=== PATIENT | female | born 1965 | race Caucasian/White ===

== ENCOUNTER → 2016-04-07 | Outpatient (CLI) | payer OTHER ==
[~2016-04-07] MED LIST: /ADVA50050; /ATOR40TA; /ATOR40TA OR; /ESCI20TA; /ESOM40CA; /ESOM40CA OR; /MOXI40TA; ABIL10TA; ABIL5TAB OR; AMBI10TA; ASTLIN; ATARAX; CETI10TA; CLON1TAB; CRES20TA OR; ERYTHROMYCI1; FLEXERIL; FLEXERIL OR; FLEXERIL PO; HYDR50TA8 OR; HYDROXYZINE PAMOATE; IBUP600T OR; IBUP800T OR; KLON1TAB OR; LAMI25TA OR; LAVAZA PO; LIPI20TA; LOPERAMIDE; LYRI75CA OR; METO5TAB2; METO5TAB2 OR; MIRALEX; MIRALEX PO; MUCINEX; PATA0.2S OU; PREG50CA; QUET20XRTB; QUET30TA; SERO200T; SERO200T OR; SERT100T; SERT50TA2; SING10TA31; SING10TA31 OR; SYMB80AE IN; TOPI100T; TOPI50TA; TRAZ100T; TRAZ50TA; TRAZ50TA OR; VALT500T; VENTAER; VENTAER IN; VIST25CA; VITAMIN D50000 UNT; VITAMIN D50000 UNT OR; ZOLO100T; ZOLO50TA; ZOVI5OIN; seroquel
--- NOTE | 2016-04-07 10:40 | REP ---
Left groin ultrasound: History: Left groin lump, check for abscess. Findings: Scanning is performed through the soft tissues of the left groin in the region where the patient indicates the lump. There is a 0.5 x 0.2 x 0.4 cm subdermal slightly hypoechoic area which may represent a small sebaceous cyst. No surrounding inflammation seen by ultrasound. Abscess considered unlikely. No other abnormal fluid collection is seen. Signed by Dillon Dutton MD 04/07/2016 03:02 P
== END ==
LOC: M RAD 08:46
PROVIDERS: ATTEND Nurse Practitioner
DX: L02.214 Cutaneous abscess of groin (principal)

== ENCOUNTER → 2016-04-30 | Outpatient (CLI) | payer OTHER ==
[2016-04-30 10:06] LABS: BASO % 0.8 % (0.0-1.0); EOS # 0.2 K/mm3 (0.0-0.50); EOS % 3.1 % (0.0-3.0); LARGE UNSTAINED CELL # 0.2 K/mm3 (0.0-0.4); LARGE UNSTAINED CELL % 2.6 % (0.0-4.0); LYMPH # 2.5 K/mm3 (1.5-4.5); LYMPH % 38.6 % (24.0-44.0); MEAN CORPUSCULAR HEMOGLOBIN 28.5 pg (27.0-33.0); MEAN CORPUSCULAR HGB CONC 32.9 g/dl (32.0-36.5); MEAN CORPUSCULAR VOLUME 86.7 fl (80.0-96.0); MONO # 0.3 K/mm3 (0.0-0.8); MONO % 4.9 % (0.0-5.0); NEUTROPHILS # 3.3 K/mm3 (1.8-7.7); PLATELET COUNT, AUTOMATED 236 k/mm3 (150-450); WHITE BLOOD COUNT 6.6 K/mm3 (4.0-10.0)
[2016-04-30 10:30] LABS: ALBUMIN 3.6 GM/DL (3.2-5.2); ALBUMIN/GLOBULIN RATIO 1.29 (1.00-1.93); ALKALINE PHOSPHATASE 84 U/L (45-117); ALT/SGPT 22 U/L (12-78); ANION GAP 6 MEQ/L (8-16); AST/SGOT 17 U/L (15-37); BILIRUBIN,TOTAL 0.4 MG/DL (0.2-1.0); BLOOD UREA NITROGEN 15 MG/DL (7-18); CALCIUM LEVEL 8.9 MG/DL (8.5-10.1); CARBON DIOXIDE LEVEL 28 MEQ/L (21-32); CHLORIDE LEVEL 109 MEQ/L (98-107); CREATININE FOR GFR 0.72 MG/DL (0.55-1.02); GLOMERULAR FILTRATION RATE > 60.0 (>51); GLUCOSE, FASTING 92 MG/DL (70-105); POTASSIUM SERUM 4.2 MEQ/L (3.5-5.1); SODIUM LEVEL 143 MEQ/L (136-145); TOTAL PROTEIN 6.4 GM/DL (6.4-8.2)
[2016-04-30 10:41] LABS: ERYTHROCYTE SEDIMENTATION RATE 8 mm/hr (0-30)
== END ==
LOC: M LAB 09:33
PROVIDERS: ATTEND Nurse Practitioner
DX: T81.4XXD Infection following a procedure, subsequent encounter (principal)

== ENCOUNTER → 2016-05-18 | Outpatient (CLI) | payer OTHER ==
[2016-05-18 10:09] LABS: BASO % 0.6 % (0.0-1.0); EOS # 0.1 K/mm3 (0.0-0.50); EOS % 2.1 % (0.0-3.0); LARGE UNSTAINED CELL # 0.1 K/mm3 (0.0-0.4); LYMPH % 41.6 % (24.0-44.0); MEAN CORPUSCULAR HEMOGLOBIN 28.7 pg (27.0-33.0); MEAN CORPUSCULAR HGB CONC 33.1 g/dl (32.0-36.5); MEAN CORPUSCULAR VOLUME 86.9 fl (80.0-96.0); MONO # 0.3 K/mm3 (0.0-0.8); MONO % 4.1 % (0.0-5.0); NEUTROPHILS # 3.4 K/mm3 (1.8-7.7); NEUTROPHILS % 49.7 % (36.0-66.0); PLATELET COUNT, AUTOMATED 250 k/mm3 (150-450); RED CELL DISTRIBUTION WIDTH 15.8 % (11.5-14.5); WHITE BLOOD COUNT 6.9 K/mm3 (4.0-10.0)
[2016-05-18 10:27] LABS: ALBUMIN 3.6 GM/DL (3.2-5.2); ALBUMIN/GLOBULIN RATIO 1.24 (1.00-1.93); ALKALINE PHOSPHATASE 79 U/L (45-117); ALT/SGPT 24 U/L (12-78); ANION GAP 8 MEQ/L (8-16); AST/SGOT 13 U/L (15-37); BILIRUBIN,TOTAL 0.4 MG/DL (0.2-1.0); BLOOD UREA NITROGEN 17 MG/DL (7-18); CALCIUM LEVEL 9.3 MG/DL (8.5-10.1); CARBON DIOXIDE LEVEL 27 MEQ/L (21-32); CHLORIDE LEVEL 107 MEQ/L (98-107); CREATININE FOR GFR 0.83 MG/DL (0.55-1.02); GLOMERULAR FILTRATION RATE > 60.0 (>51); GLUCOSE, FASTING 94 MG/DL (70-105); POTASSIUM SERUM 3.8 MEQ/L (3.5-5.1); SODIUM LEVEL 142 MEQ/L (136-145); TOTAL PROTEIN 6.5 GM/DL (6.4-8.2)
--- NOTE | 2016-05-18 22:18 | ECGEPIP ---
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
== END ==
LOC: M LAB 09:27
PROVIDERS: ATTEND Podiatrist
DX: Z01.818 Encounter for other preprocedural examination (principal); M72.2 Plantar fascial fibromatosis

== ENCOUNTER → 2016-06-02 | Outpatient (CLI) | payer OTHER ==
[~2016-06-02] MED LIST changes: +ASPI81TA85 PO; +BREO1INH3 INH; +CALCTAB75 PO; +CELE20TA PO; +DOXE100CA PO; +DOXY-278 PO; +ESOM1CAP5 PO; +LIPI20TA PO; +METF500T PO; +MIRA3350 PO; +NICO21DI5 TD; +VALI10TA PO; +VANC250C2 PO
[2016-06-02 09:54] LABS: BASO % 0.7 % (0.0-1.0); EOS # 0.2 K/mm3 (0.0-0.50); EOS % 2.4 % (0.0-3.0); LARGE UNSTAINED CELL # 0.1 K/mm3 (0.0-0.4); LYMPH # 2.9 K/mm3 (1.5-4.5); LYMPH % 41.3 % (24.0-44.0); MEAN CORPUSCULAR HEMOGLOBIN 28.8 pg (27.0-33.0); MEAN CORPUSCULAR HGB CONC 32.6 g/dl (32.0-36.5); MEAN CORPUSCULAR VOLUME 88.5 fl (80.0-96.0); MONO # 0.3 K/mm3 (0.0-0.8); MONO % 4.9 % (0.0-5.0); NEUTROPHILS # 3.3 K/mm3 (1.8-7.7); NEUTROPHILS % 48.8 % (36.0-66.0); PLATELET COUNT, AUTOMATED 240 k/mm3 (150-450); RED CELL DISTRIBUTION WIDTH 15.9 % (11.5-14.5); WHITE BLOOD COUNT 6.7 K/mm3 (4.0-10.0)
[2016-06-02 10:26] LABS: ERYTHROCYTE SEDIMENTATION RATE 9 mm/hr (0-30)
[2016-06-02 10:29] LABS: ALBUMIN 4.1 GM/DL (3.2-5.2); ALBUMIN/GLOBULIN RATIO 1.58 (1.00-1.93); ALKALINE PHOSPHATASE 78 U/L (45-117); ALT/SGPT 23 U/L (12-78); ANION GAP 7 MEQ/L (8-16); AST/SGOT 18 U/L (15-37); BILIRUBIN,TOTAL 0.4 MG/DL (0.2-1.0); BLOOD UREA NITROGEN 9 MG/DL (7-18); CALCIUM LEVEL 9.4 MG/DL (8.5-10.1); CARBON DIOXIDE LEVEL 29 MEQ/L (21-32); CHLORIDE LEVEL 104 MEQ/L (98-107); CREATININE FOR GFR 0.76 MG/DL (0.55-1.02); GLOMERULAR FILTRATION RATE > 60.0 (>51); GLUCOSE, FASTING 102 MG/DL (70-105); POTASSIUM SERUM 3.7 MEQ/L (3.5-5.1); SODIUM LEVEL 140 MEQ/L (136-145); TOTAL PROTEIN 6.7 GM/DL (6.4-8.2)
== END ==
LOC: M LAB 09:16
PROVIDERS: ATTEND Nurse Practitioner
DX: T81.4XXD Infection following a procedure, subsequent encounter (principal)

== ENCOUNTER → 2016-06-03 | Day surgery (SDC) | payer OTHER ==
[~2016-06-03] VITALS: Ht 157.5 cm; Wt 84.4 kg
[~2016-06-03] MED LIST changes: +BACITRACIN PWD 50,000 UNITS VIAL As Ordered ONE; +BUPIVACAINE HCL 0.5% 10 ML VIAL As Ordered ONE; +BUPIVACAINE HCL 0.5% 30 ML VIAL As Ordered ONE; +LIDOCAINE 2% INJ 100 MG/5 ML SDV (FOR ANES.) As Ordered ONE; +LIDOCAINE 2% MDV 20 ML VIAL As Ordered ONE; +LR 1,000 ML IV SCH; +METOCLOPRAMIDE INJ 10MG/2ML VIAL (J2765) IV PRN; +MIDAZOLAM INJ 2 MG/2 ML VIAL (J2250) As Ordered ONE; +NEOSPORIN GU IRRIG 20 ML VIAL As Ordered ONE; +ONDANSETRON 4MG/2ML VIAL (J2405) As Ordered ONE; +ONDANSETRON 4MG/2ML VIAL (J2405) IV PRN; +PERCOCET 5MG/325MG TAB PO PRN; +PROPOFOL 200 MG/20 ML VIAL As Ordered ONE; +VANCOMYCIN HCL 1,000 MG, VIAL MATE ADAPTER 1 EACH in D5W 250 ML IV ONE; +dexameTHASONE 4 MG/ML 1ML VIAL (J1100) As Ordered ONE; +fentaNYL 100 MCG/2 ML INJECTION (J3010) As Ordered ONE
[2016-06-03 10:15] VITALS: BP 136/85
--- NOTE | 2016-06-03 10:45 | RO ---
DATE OF PROCEDURE: 06/03/2016 PREPROCEDURE DIAGNOSIS: Plantar fasciitis right foot. POSTPROCEDURE DIAGNOSIS: Plantar fasciitis right foot. PROCEDURE: Endoscopic plantar fasciotomy right foot. SURGEON: Nash Martinez DPM PLAYGROUND AIDE: None. ANESTHESIA: Local, monitored anesthesia care (MAC). IRRIGATION: Dilute bacitracin, neomycin and polymyxin B solution. HEMOSTASIS: Ankle pneumatic tourniquet at 225 mmHg for 18 minutes on the right ankle. DESCRIPTION OF PROCEDURE: On 06/03/2016, this 50-year-old white female was taken from her hospital room to the operating room and placed on the operating room table in a supine position. Following the induction of IV sedation, local and regional anesthesia, the right lower extremity was prepped and draped in the usual aseptic manner. Attention was directed to the patient's right foot where the following procedure was performed. ENDOSCOPIC PLANTAR FASCIOTOMY RIGHT FOOT: Attention was directed to the medial surface of the patient's right foot where a 5 mm incision was placed over the medial tuberosity of the calcaneus superior to the weight bearing surface. Utilizing dissection scissors, dissection was carried down to the level of the plantar fascia. Utilizing a tissue distender, a channel was created inferior to the plantar fascia. Utilizing an [employer] Centerline endoscopic blade with endoscope, the endoscope was introduced into the wound. Direct visualization revealed the plantar fascia. Approximately 3/4 of the plantar fascia was identified and then transected under direct visualization. Intraoperative images confirmed plantar fasciotomy with visualization of the first muscle layer. The endoscope was then removed. The wound was flushed with copious amounts of dilute bacitracin, neomycin and polymyxin B solution. The deep structures were coapted and maintained utilizing #4-0 Vicryl in a simple interrupted type fashion. The skin incision was coapted and maintained utilizing #4-0 Prolene in a horizontal mattress type fashion and 4 mg of dexamethasone sodium phosphate was instilled proximal to the surgical site. Attention was directed towards bandaging where a sterile compressive bandage was applied consisting of Adaptic, 4x4s, 4x4 splints, Kerlix and Coban. The ankle pneumatic tourniquet was deflated and instantaneous capillary filling time was noted in digits 1-5 of the patients right foot. The patient having apparently tolerated the surgical procedure well was taken from the operating room (OR) to the recovery room with vital signs stable and the patient afebrile for further monitoring by the anesthesia department. All surgical specimens removed during the operative procedure were sent to pathology for gross and microscopic examination. Postoperative instructions will be given upon discharge.
== END ==
LOC: M SDC 07:20
PROVIDERS: ATTEND Podiatrist
DX: M72.2 Plantar fascial fibromatosis (principal); M79.671 Pain in right foot; S86.011A Strain of right Achilles tendon, initial encounter; X58.XXXA Exposure to other specified factors, initial encounter; Y93.89 Activity, other specified; E11.9 Type 2 diabetes mellitus without complications; G90.50 Complex regional pain syndrome I, unspecified; E78.5 Hyperlipidemia, unspecified; K21.9 Gastro-esophageal reflux disease without esophagitis; F42.9 Obsessive-compulsive disorder, unspecified; J30.2 Other seasonal allergic rhinitis; J01.90 Acute sinusitis, unspecified; F17.210 Nicotine dependence, cigarettes, uncomplicated; M19.90 Unspecified osteoarthritis, unspecified site; Z88.1 Allergy status to other antibiotic agents; Z88.8 Allergy status to other drugs, medicaments and biological substances; Z88.5 Allergy status to narcotic agent; Z88.0 Allergy status to penicillin; Z88.4 Allergy status to anesthetic agent; Z79.899 Other long term (current) drug therapy; Z79.51 Long term (current) use of inhaled steroids; Z79.84 Long term (current) use of oral hypoglycemic drugs; Z79.2 Long term (current) use of antibiotics; Z86.14 Personal history of Methicillin resistant Staphylococcus aureus infection
CPT/HCPCS: 29893; J1100; J2250; J2405; J3010; J3370

== ENCOUNTER → 2016-06-29 | Outpatient (CLI) | payer OTHER ==
[~2016-06-29] MED LIST changes: -BACITRACIN PWD 50,000 UNITS VIAL As Ordered ONE; -BUPIVACAINE HCL 0.5% 10 ML VIAL As Ordered ONE; -BUPIVACAINE HCL 0.5% 30 ML VIAL As Ordered ONE; -LIDOCAINE 2% INJ 100 MG/5 ML SDV (FOR ANES.) As Ordered ONE; -LIDOCAINE 2% MDV 20 ML VIAL As Ordered ONE; -LR 1,000 ML IV SCH; -METOCLOPRAMIDE INJ 10MG/2ML VIAL (J2765) IV PRN; -MIDAZOLAM INJ 2 MG/2 ML VIAL (J2250) As Ordered ONE; -NEOSPORIN GU IRRIG 20 ML VIAL As Ordered ONE; -ONDANSETRON 4MG/2ML VIAL (J2405) As Ordered ONE; -ONDANSETRON 4MG/2ML VIAL (J2405) IV PRN; -PERCOCET 5MG/325MG TAB PO PRN; -PROPOFOL 200 MG/20 ML VIAL As Ordered ONE; -VANCOMYCIN HCL 1,000 MG, VIAL MATE ADAPTER 1 EACH in D5W 250 ML IV ONE; -dexameTHASONE 4 MG/ML 1ML VIAL (J1100) As Ordered ONE; -fentaNYL 100 MCG/2 ML INJECTION (J3010) As Ordered ONE
[2016-06-29 10:24] LABS: BASO % 0.4 % (0.0-1.0); EOS # 0.2 K/mm3 (0.0-0.50); EOS % 3.6 % (0.0-3.0); LARGE UNSTAINED CELL # 0.1 K/mm3 (0.0-0.4); LARGE UNSTAINED CELL % 2.1 % (0.0-4.0); LYMPH # 2.7 K/mm3 (1.5-4.5); LYMPH % 45.1 % (24.0-44.0); MEAN CORPUSCULAR HGB CONC 32.7 g/dl (32.0-36.5); MEAN CORPUSCULAR VOLUME 91.8 fl (80.0-96.0); MONO # 0.3 K/mm3 (0.0-0.8); MONO % 4.2 % (0.0-5.0); NEUTROPHILS # 2.6 K/mm3 (1.8-7.7); NEUTROPHILS % 44.6 % (36.0-66.0); PLATELET COUNT, AUTOMATED 240 k/mm3 (150-450); RED CELL DISTRIBUTION WIDTH 15.7 % (11.5-14.5); WHITE BLOOD COUNT 5.9 K/mm3 (4.0-10.0)
[2016-06-29 10:50] LABS: ALBUMIN 3.3 GM/DL (3.2-5.2); ALBUMIN/GLOBULIN RATIO 1.18 (1.00-1.93); ALKALINE PHOSPHATASE 66 U/L (45-117); ALT/SGPT 20 U/L (12-78); ANION GAP 6 MEQ/L (8-16); AST/SGOT 17 U/L (15-37); BILIRUBIN,TOTAL 0.4 MG/DL (0.2-1.0); BLOOD UREA NITROGEN 14 MG/DL (7-18); CALCIUM LEVEL 8.7 MG/DL (8.5-10.1); CARBON DIOXIDE LEVEL 29 MEQ/L (21-32); CHLORIDE LEVEL 109 MEQ/L (98-107); CREATININE FOR GFR 0.67 MG/DL (0.55-1.02); GLOMERULAR FILTRATION RATE > 60.0 (>51); GLUCOSE, FASTING 87 MG/DL (70-105); POTASSIUM SERUM 4.1 MEQ/L (3.5-5.1); SODIUM LEVEL 144 MEQ/L (136-145); TOTAL PROTEIN 6.1 GM/DL (6.4-8.2)
[2016-06-29 11:02] LABS: ERYTHROCYTE SEDIMENTATION RATE 9 mm/hr (0-30)
== END ==
LOC: M LAB 09:28
PROVIDERS: ATTEND Nurse Practitioner
DX: T81.4XXD Infection following a procedure, subsequent encounter (principal); B99.9 Unspecified infectious disease; Y99.8 Other external cause status; Y93.9 Activity, unspecified; Y92.89 Other specified places as the place of occurrence of the external cause

== ENCOUNTER → 2016-08-04 | Outpatient (CLI) | payer OTHER ==
[2016-08-04 09:50] LABS: BASO % 0.8 % (0.0-1.0); EOS # 0.2 K/mm3 (0.0-0.50); LARGE UNSTAINED CELL # 0.1 K/mm3 (0.0-0.4); LARGE UNSTAINED CELL % 2.1 % (0.0-4.0); LYMPH # 2.3 K/mm3 (1.5-4.5); LYMPH % 42.4 % (24.0-44.0); MEAN CORPUSCULAR HEMOGLOBIN 29.7 pg (27.0-33.0); MEAN CORPUSCULAR HGB CONC 32.6 g/dl (32.0-36.5); MEAN CORPUSCULAR VOLUME 91.1 fl (80.0-96.0); MONO # 0.3 K/mm3 (0.0-0.8); MONO % 5.6 % (0.0-5.0); NEUTROPHILS # 2.4 K/mm3 (1.8-7.7); NEUTROPHILS % 45.1 % (36.0-66.0); PLATELET COUNT, AUTOMATED 244 k/mm3 (150-450); RED CELL DISTRIBUTION WIDTH 15.3 % (11.5-14.5); WHITE BLOOD COUNT 5.3 K/mm3 (4.0-10.0)
[2016-08-04 10:15] LABS: ALBUMIN 3.2 GM/DL (3.2-5.2); ALBUMIN/GLOBULIN RATIO 1.14 (1.00-1.93); ALKALINE PHOSPHATASE 76 U/L (45-117); ALT/SGPT 28 U/L (12-78); ANION GAP 5 MEQ/L (8-16); AST/SGOT 16 U/L (15-37); BILIRUBIN,TOTAL 0.4 MG/DL (0.2-1.0); BLOOD UREA NITROGEN 14 MG/DL (7-18); CALCIUM LEVEL 8.4 MG/DL (8.5-10.1); CARBON DIOXIDE LEVEL 30 MEQ/L (21-32); CHLORIDE LEVEL 108 MEQ/L (98-107); CREATININE FOR GFR 0.73 MG/DL (0.55-1.02); GLOMERULAR FILTRATION RATE > 60.0 (>51); GLUCOSE, FASTING 82 MG/DL (70-105); POTASSIUM SERUM 4.7 MEQ/L (3.5-5.1); SODIUM LEVEL 143 MEQ/L (136-145)
[2016-08-04 10:16] LABS: ERYTHROCYTE SEDIMENTATION RATE 8 mm/hr (0-30)
== END ==
LOC: M LAB 09:16
PROVIDERS: ATTEND Nurse Practitioner
DX: T81.4XXD Infection following a procedure, subsequent encounter (principal)

== ENCOUNTER 2016-08-25 19:54 | Emergency (ER) | payer OTHER ==
[~2016-08-25] VITALS: Ht 152.4 cm; Wt 80.6 kg
[~2016-08-25 19:54] MED LIST changes: +ATOR1TAB21 PO; +CALC600T57 PO; +CETI10CH PO; +CETI1SYP16 PO; +CETI5SOL2 PO; +CITA20TA4 PO; +DIAZ10TA2 PO; +DOXE150C7 PO; -METF500T PO; +METF500T13 PO; +OMEP40CA2 PO; +RALO1TAB PO; +TEMA15CA2 PO; +TEMA7.5C PO; +ULTR50TA8 PO
[2016-08-25 19:55] VITALS: BP 137/86
[2016-08-25] MEDS ORDERED: FLUC150T PO (20:11)
[2016-08-25] MEDS ORDERED: SILV40CR TOP (20:11)
[2016-08-25] MEDS ORDERED: VALA500T2 PO (20:11)
[2016-08-25] MEDS ORDERED: BENA25TA10 PO (21:30)
[2016-08-25] MEDS ORDERED: predniSONE 20 MG TAB PO ONE (21:30)
[2016-08-25] MEDS ORDERED: PRED10TA2 PO (21:30)
[2016-08-25] MEDS ORDERED: diphenhydrAMINE 25 MG CAP PO ONE (21:30)
== END 2016-08-25 21:39 | disposition home or self-care (01) ==
LOC: M ED 19:54 → MERGE 19:54 → M ED 21:39
DX: L23.9 Allergic contact dermatitis, unspecified cause (principal); J45.909 Unspecified asthma, uncomplicated; E11.9 Type 2 diabetes mellitus without complications; F43.10 Post-traumatic stress disorder, unspecified; E78.9 Disorder of lipoprotein metabolism, unspecified; F17.210 Nicotine dependence, cigarettes, uncomplicated; Z79.899 Other long term (current) drug therapy; Z79.2 Long term (current) use of antibiotics; Z79.84 Long term (current) use of oral hypoglycemic drugs; Z79.82 Long term (current) use of aspirin; Z88.8 Allergy status to other drugs, medicaments and biological substances; Z88.1 Allergy status to other antibiotic agents; Z88.0 Allergy status to penicillin; Z88.4 Allergy status to anesthetic agent

== ENCOUNTER → 2016-09-15 | Outpatient (CLI) | payer OTHER ==
[~2016-09-15] MED LIST changes: +AMMO12LO; +BENA25TA10 PO; +FLUC150T PO; +IBUP-1022 PO; +PRED10TA2 PO; +SILV40CR TOP; +SYST1SOL OU; +VALA500T2 PO
[2016-09-15 12:44] LABS: BASO % 0.7 % (0.0-1.0); EOS # 0.1 K/mm3 (0.0-0.50); LARGE UNSTAINED CELL # 0.1 K/mm3 (0.0-0.4); LARGE UNSTAINED CELL % 1.8 % (0.0-4.0); LYMPH # 1.8 K/mm3 (1.5-4.5); LYMPH % 35.4 % (24.0-44.0); MEAN CORPUSCULAR HEMOGLOBIN 29.8 pg (27.0-33.0); MEAN CORPUSCULAR VOLUME 90.5 fl (80.0-96.0); MONO # 0.2 K/mm3 (0.0-0.8); MONO % 4.1 % (0.0-5.0); NEUTROPHILS # 2.7 K/mm3 (1.8-7.7); NEUTROPHILS % 56.1 % (36.0-66.0); PLATELET COUNT, AUTOMATED 233 k/mm3 (150-450); RED CELL DISTRIBUTION WIDTH 14.9 % (11.5-14.5); WHITE BLOOD COUNT 4.7 K/mm3 (4.0-10.0)
[2016-09-15 13:09] LABS: ALBUMIN 3.4 GM/DL (3.2-5.2); ALBUMIN/GLOBULIN RATIO 1.26 (1.00-1.93); ALKALINE PHOSPHATASE 59 U/L (45-117); ALT/SGPT 25 U/L (12-78); ANION GAP 4 MEQ/L (8-16); AST/SGOT 15 U/L (15-37); BILIRUBIN,TOTAL 0.4 MG/DL (0.2-1.0); BLOOD UREA NITROGEN 11 MG/DL (7-18); CALCIUM LEVEL 8.7 MG/DL (8.5-10.1); CARBON DIOXIDE LEVEL 29 MEQ/L (21-32); CHLORIDE LEVEL 109 MEQ/L (98-107); CREATININE FOR GFR 0.69 MG/DL (0.55-1.02); GLOMERULAR FILTRATION RATE > 60.0 (>51); GLUCOSE, FASTING 86 MG/DL (70-105); POTASSIUM SERUM 4.7 MEQ/L (3.5-5.1); SODIUM LEVEL 142 MEQ/L (136-145); TOTAL PROTEIN 6.1 GM/DL (6.4-8.2)
[2016-09-15 13:10] LABS: ERYTHROCYTE SEDIMENTATION RATE 14 mm/hr (0-30)
== END ==
LOC: MERGE 11:32 → M LAB 11:32
PROVIDERS: ATTEND Nurse Practitioner
DX: T81.4XXD Infection following a procedure, subsequent encounter (principal)

== ENCOUNTER → 2016-09-15 | Outpatient (CLI) | payer OTHER ==
[2016-09-15 12:42] LABS: BASO % 0.5 % (0.0-1.0); EOS # 0.1 K/mm3 (0.0-0.50); EOS % 1.8 % (0.0-3.0); LYMPH # 1.9 K/mm3 (1.5-4.5); LYMPH % 36.9 % (24.0-44.0); MEAN CORPUSCULAR HEMOGLOBIN 30.2 pg (27.0-33.0); MEAN CORPUSCULAR HGB CONC 33.4 g/dl (32.0-36.5); MEAN CORPUSCULAR VOLUME 90.6 fl (80.0-96.0); MONO # 0.2 K/mm3 (0.0-0.8); MONO % 4.3 % (0.0-5.0); NEUTROPHILS # 2.7 K/mm3 (1.8-7.7); NEUTROPHILS % 54.6 % (36.0-66.0); WHITE BLOOD COUNT 4.9 K/mm3 (4.0-10.0)
[2016-09-15 13:16] LABS: ALBUMIN 3.4 GM/DL (3.2-5.2); ALBUMIN/GLOBULIN RATIO 1.26 (1.00-1.93); ALKALINE PHOSPHATASE 63 U/L (45-117); ALT/SGPT 24 U/L (12-78); ANION GAP 6 MEQ/L (8-16); AST/SGOT 16 U/L (15-37); BILIRUBIN,TOTAL 0.5 MG/DL (0.2-1.0); BLOOD UREA NITROGEN 11 MG/DL (7-18); CALCIUM LEVEL 8.8 MG/DL (8.5-10.1); CARBON DIOXIDE LEVEL 28 MEQ/L (21-32); CHLORIDE LEVEL 110 MEQ/L (98-107); CHOLESTEROL LEVEL 185 MG/DL (<200); CREATININE FOR GFR 0.67 MG/DL (0.55-1.02); FREE T4 0.78 NG/DL (0.76-1.46); GLOMERULAR FILTRATION RATE > 60.0 (>51); GLUCOSE, FASTING 84 MG/DL (70-105); POTASSIUM SERUM 4.6 MEQ/L (3.5-5.1); SODIUM LEVEL 144 MEQ/L (136-145); TOTAL PROTEIN 6.1 GM/DL (6.4-8.2); TRIGLYCERIDES LEVEL 192 MG/DL (<150)
== END ==
LOC: MERGE 11:28 → M LAB 11:28
PROVIDERS: ATTEND Nurse Practitioner Adult Health
DX: I10 Essential (primary) hypertension (principal)

== ENCOUNTER 2016-10-03 12:48 | Emergency (ER) | payer OTHER ==
[~2016-10-03] VITALS: Ht 157.5 cm; Wt 81.3 kg
[~2016-10-03 12:48] MED LIST changes: -AMMO12LO; -IBUP-1022 PO; -SYST1SOL OU
[2016-10-03] MEDS ORDERED: AMMO12LO (13:04)
[2016-10-03] MEDS ORDERED: BREO1INH3 INH (13:04)
[2016-10-03] MEDS ORDERED: SYST1SOL OU (13:04)
[2016-10-03] MEDS ORDERED: IBUPROFEN 600 MG TAB PO ONE (15:30)
[2016-10-03] MEDS ORDERED: IBUP-1022 PO (15:40)
[2016-10-03 15:54] VITALS: BP 135/86
--- NOTE | 2016-10-04 06:43 | REP ---
BILATERAL FOOT SERIES COMPLETE: 10/03/2016. Clinical history: Trauma. Findings:Left foot: Comparison 12/21/2013. Four views of the foot show a small plantar calcaneal spur and a tiny Achilles insertion spur. Calcaneus and talus without fracture or focal lesion. The articulations with the tarsal bones intact. Tarsal bones and metatarsals are without visible displaced fracture. On of the oblique views, the proximal phalanx of the great toe distally shows a linear oblique subtle lucency, which could be a nondisplaced fracture. It is not visible on any other view and does not extend to the articular surface. There may be some mild soft-tissue swelling. Impression: 1. Subtle lucency oblique orientation distal aspect of the proximal phalanx of the left great toe. This could be a nondisplaced fracture. Please correlate clinically. 2. Small heel spurs unchanged. Right foot: Comparison 12/24/2014. Four views of the foot were provided. Plantar and Achilles insertion heel spurs are unchanged. Talus, calcaneus and tarsal bones are unremarkable without visible fracture. There has been interval healing of the osteotomies at the first and fifth distal metatarsals seen on the November 2014 study. The bunionectomy and osteotomies have single screws through them as before. MTP, IP and tarsal joints intact. Phalanges intact. Impression: 1. Status post bilateral osteotomies and bunionectomies of the first and fifth distal metatarsals. Hardware intact and healing of the osteotomy sites noted. No visible acute fracture, destructive lesion or other significant finding. Signed by Lux Rodríguez MD 10/04/2016 07:53 A
== END 2016-10-03 15:55 | disposition home or self-care (01) ==
LOC: M ED 12:48
DX: M77.32 Calcaneal spur, left foot (principal); S90.31XA Contusion of right foot, initial encounter; S90.32XA Contusion of left foot, initial encounter; W22.09XA Striking against other stationary object, initial encounter; Y92.019 Unspecified place in single-family (private) house as the place of occurrence of the external cause; Y93.9 Activity, unspecified; Y99.8 Other external cause status; I10 Essential (primary) hypertension; G89.29 Other chronic pain; F17.200 Nicotine dependence, unspecified, uncomplicated; Z79.82 Long term (current) use of aspirin; Z79.899 Other long term (current) drug therapy; Z88.0 Allergy status to penicillin; Z88.5 Allergy status to narcotic agent; Z88.1 Allergy status to other antibiotic agents; Z88.8 Allergy status to other drugs, medicaments and biological substances; Z91.011 Allergy to milk products

== ENCOUNTER → 2016-10-11 | Outpatient (CLI) | payer OTHER ==
[~2016-10-11] MED LIST changes: +AMMO12LO; +IBUP-1022 PO; +SYST1SOL OU
[2016-10-11 12:54] LABS: BASO % 0.7 % (0.0-1.0); EOS # 0.1 K/mm3 (0.0-0.50); EOS % 2.5 % (0.0-3.0); LARGE UNSTAINED CELL # 0.1 K/mm3 (0.0-0.4); LARGE UNSTAINED CELL % 1.9 % (0.0-4.0); LYMPH # 2.3 K/mm3 (1.5-4.5); LYMPH % 42.3 % (24.0-44.0); MEAN CORPUSCULAR HEMOGLOBIN 29.6 pg (27.0-33.0); MEAN CORPUSCULAR VOLUME 89.7 fl (80.0-96.0); MONO # 0.3 K/mm3 (0.0-0.8); MONO % 4.9 % (0.0-5.0); NEUTROPHILS # 2.6 K/mm3 (1.8-7.7); NEUTROPHILS % 47.8 % (36.0-66.0); PLATELET COUNT, AUTOMATED 249 k/mm3 (150-450); RED CELL DISTRIBUTION WIDTH 14.5 % (11.5-14.5); WHITE BLOOD COUNT 5.5 K/mm3 (4.0-10.0)
[2016-10-11 13:19] LABS: ERYTHROCYTE SEDIMENTATION RATE 8 mm/hr (0-30)
[2016-10-11 13:28] LABS: ALBUMIN 3.4 GM/DL (3.2-5.2); ALBUMIN/GLOBULIN RATIO 1.26 (1.00-1.93); ALKALINE PHOSPHATASE 72 U/L (45-117); ALT/SGPT 26 U/L (12-78); ANION GAP 6 MEQ/L (8-16); AST/SGOT 20 U/L (15-37); BILIRUBIN,TOTAL 0.4 MG/DL (0.2-1.0); BLOOD UREA NITROGEN 7 MG/DL (7-18); CALCIUM LEVEL 8.7 MG/DL (8.5-10.1); CARBON DIOXIDE LEVEL 29 MEQ/L (21-32); CHLORIDE LEVEL 108 MEQ/L (98-107); CREATININE FOR GFR 0.68 MG/DL (0.55-1.02); GLOMERULAR FILTRATION RATE > 60.0 (>51); GLUCOSE, FASTING 80 MG/DL (70-105); POTASSIUM SERUM 4.8 MEQ/L (3.5-5.1); SODIUM LEVEL 143 MEQ/L (136-145); TOTAL PROTEIN 6.1 GM/DL (6.4-8.2)
== END ==
LOC: M LAB 12:12
PROVIDERS: ATTEND Nurse Practitioner
DX: T81.4XXD Infection following a procedure, subsequent encounter (principal); X58.XXXD Exposure to other specified factors, subsequent encounter; Y93.9 Activity, unspecified; Y92.9 Unspecified place or not applicable; Y99.8 Other external cause status

== ENCOUNTER → 2016-11-11 | Outpatient (CLI) | payer OTHER ==
[2016-11-11 13:49] LABS: BASO % 0.7 % (0.0-1.0); EOS # 0.2 K/mm3 (0.0-0.50); EOS % 3.7 % (0.0-3.0); LARGE UNSTAINED CELL # 0.1 K/mm3 (0.0-0.4); LARGE UNSTAINED CELL % 2.1 % (0.0-4.0); LYMPH # 2.1 K/mm3 (1.5-4.5); LYMPH % 43.9 % (24.0-44.0); MEAN CORPUSCULAR HEMOGLOBIN 29.1 pg (27.0-33.0); MEAN CORPUSCULAR HGB CONC 32.2 g/dl (32.0-36.5); MEAN CORPUSCULAR VOLUME 90.5 fl (80.0-96.0); MONO # 0.2 K/mm3 (0.0-0.8); MONO % 5.1 % (0.0-5.0); NEUTROPHILS # 2.1 K/mm3 (1.8-7.7); NEUTROPHILS % 44.5 % (36.0-66.0); PLATELET COUNT, AUTOMATED 238 k/mm3 (150-450); WHITE BLOOD COUNT 4.6 K/mm3 (4.0-10.0)
[2016-11-11 14:42] LABS: ERYTHROCYTE SEDIMENTATION RATE 11 mm/hr (0-30)
[2016-11-11 14:49] LABS: ALBUMIN 3.5 GM/DL (3.2-5.2); ALBUMIN/GLOBULIN RATIO 1.35 (1.00-1.93); ALKALINE PHOSPHATASE 72 U/L (45-117); ALT/SGPT 26 U/L (12-78); ANION GAP 10 MEQ/L (8-16); AST/SGOT 13 U/L (15-37); BILIRUBIN,TOTAL 0.4 MG/DL (0.2-1.0); BLOOD UREA NITROGEN 12 MG/DL (7-18); CALCIUM LEVEL 8.7 MG/DL (8.5-10.1); CARBON DIOXIDE LEVEL 27 MEQ/L (21-32); CHLORIDE LEVEL 110 MEQ/L (98-107); CREATININE FOR GFR 0.74 MG/DL (0.55-1.02); GLOMERULAR FILTRATION RATE > 60.0 (>51); GLUCOSE, FASTING 87 MG/DL (70-105); POTASSIUM SERUM 4.4 MEQ/L (3.5-5.1); SODIUM LEVEL 147 MEQ/L (136-145); THYROXINE (T4) 8.4 UG/DL (4.5-12.0); TOTAL PROTEIN 6.1 GM/DL (6.4-8.2)
[2016-11-13 00:07] LABS: SJOGREN'S ANTI SS-A <0.2 AI (0.0-0.9); SJOGREN'S ANTI SS-B <0.2 AI (0.0-0.9)
== END ==
LOC: M SMT 09:15
PROVIDERS: ATTEND Allergy & Immunology Allergy
DX: L53.9 Erythematous condition, unspecified (principal)

== ENCOUNTER → 2016-11-11 | Outpatient (CLI) | payer OTHER ==
[2016-11-11 14:07] LABS: ALBUMIN 3.5 GM/DL (3.2-5.2); ALKALINE PHOSPHATASE 68 U/L (45-117); ALT/SGPT 23 U/L (12-78); ANION GAP 9 MEQ/L (8-16); AST/SGOT 15 U/L (15-37); BILIRUBIN,TOTAL 0.4 MG/DL (0.2-1.0); BLOOD UREA NITROGEN 12 MG/DL (7-18); CALCIUM LEVEL 8.7 MG/DL (8.5-10.1); CARBON DIOXIDE LEVEL 27 MEQ/L (21-32); CHLORIDE LEVEL 110 MEQ/L (98-107); GLOMERULAR FILTRATION RATE > 60.0 (>51); GLUCOSE, FASTING 89 MG/DL (70-105); SODIUM LEVEL 146 MEQ/L (136-145)
[2016-11-11 14:28] LABS: BASO % 0.7 % (0.0-1.0); EOS # 0.2 K/mm3 (0.0-0.50); EOS % 3.3 % (0.0-3.0); LARGE UNSTAINED CELL # 0.1 K/mm3 (0.0-0.4); LARGE UNSTAINED CELL % 1.5 % (0.0-4.0); LYMPH # 2.1 K/mm3 (1.5-4.5); LYMPH % 42.5 % (24.0-44.0); MEAN CORPUSCULAR HEMOGLOBIN 28.8 pg (27.0-33.0); MEAN CORPUSCULAR HGB CONC 31.7 g/dl (32.0-36.5); MEAN CORPUSCULAR VOLUME 90.8 fl (80.0-96.0); MONO # 0.3 K/mm3 (0.0-0.8); MONO % 6.2 % (0.0-5.0); NEUTROPHILS # 2.2 K/mm3 (1.8-7.7); NEUTROPHILS % 45.9 % (36.0-66.0); PLATELET COUNT, AUTOMATED 234 k/mm3 (150-450); RED CELL DISTRIBUTION WIDTH 14.9 % (11.5-14.5); WHITE BLOOD COUNT 4.7 K/mm3 (4.0-10.0)
[2016-11-11 15:17] LABS: ERYTHROCYTE SEDIMENTATION RATE 12 mm/hr (0-30)
== END ==
LOC: M SMT 09:19
PROVIDERS: ATTEND Nurse Practitioner
DX: T81.4XXD Infection following a procedure, subsequent encounter (principal)

== ENCOUNTER → 2016-12-15 | Outpatient (CLI) | payer OTHER ==
[2016-12-15 18:37] LABS: BASO # 0.1 10^3/uL (0.0-0.2); BASO % 0.8 % (0.0-1.0); EOS # 0.2 10^3/uL (0.0-0.50); EOS % 2.2 % (0.0-3.0); IMMATURE GRANULOCYTE % 0.3 % (0-0); LYMPH # 2.8 10^3/uL (1.5-4.5); LYMPH % 39.7 % (24.0-44.0); MEAN CORPUSCULAR HEMOGLOBIN 28.8 pg (27.0-33.0); MEAN CORPUSCULAR HGB CONC 32.1 g/dl (32.0-36.5); MEAN CORPUSCULAR VOLUME 89.9 fl (80.0-96.0); MONO # 0.3 10^3/uL (0.0-0.8); MONO % 4.6 % (0.0-5.0); NEUTROPHILS # 3.8 10^3/uL (1.8-7.7); NEUTROPHILS % 52.4 % (36.0-66.0); PLATELET COUNT, AUTOMATED 253 10^3/uL (150-450); RED CELL DISTRIBUTION WIDTH 14.8 % (11.5-14.5); WHITE BLOOD COUNT 7.2 10^3/uL (4.0-10.0)
[2016-12-15 19:06] LABS: ALBUMIN 3.7 GM/DL (3.2-5.2); ALBUMIN/GLOBULIN RATIO 1.37 (1.00-1.93); ALKALINE PHOSPHATASE 80 U/L (45-117); ALT/SGPT 25 U/L (12-78); ANION GAP 7 MEQ/L (8-16); AST/SGOT 17 U/L (15-37); BILIRUBIN,TOTAL 0.3 MG/DL (0.2-1.0); BLOOD UREA NITROGEN 11 MG/DL (7-18); CALCIUM LEVEL 8.9 MG/DL (8.5-10.1); CARBON DIOXIDE LEVEL 29 MEQ/L (21-32); CHLORIDE LEVEL 107 MEQ/L (98-107); CREATININE FOR GFR 0.73 MG/DL (0.55-1.02); GLOMERULAR FILTRATION RATE > 60.0 (>51); GLUCOSE, FASTING 88 MG/DL (70-105); POTASSIUM SERUM 4.5 MEQ/L (3.5-5.1); SODIUM LEVEL 143 MEQ/L (136-145); TOTAL PROTEIN 6.4 GM/DL (6.4-8.2)
[2016-12-15 20:41] LABS: ERYTHROCYTE SEDIMENTATION RATE 8 mm/hr (0-30)
== END ==
LOC: M SMT 11:27
PROVIDERS: ATTEND Nurse Practitioner
DX: T81.4XXD Infection following a procedure, subsequent encounter (principal)

== ENCOUNTER → 2017-03-17 | Outpatient (CLI) | payer OTHER ==
[2017-03-17 10:26] LABS: BASO # 0.1 10^3/uL (0.0-0.2); BASO % 0.7 % (0.0-1.0); EOS # 0.3 10^3/uL (0.0-0.50); EOS % 3.6 % (0.0-3.0); HEMATOCRIT 37.6 % (36.0-47.0); HEMOGLOBIN 11.9 g/dl (12.0-16.0); IMMATURE GRANULOCYTE % 0.1 % (0-0); LYMPH # 3.2 10^3/uL (1.5-4.5); LYMPH % 45.5 % (24.0-44.0); MEAN CORPUSCULAR HEMOGLOBIN 27.2 pg (27.0-33.0); MEAN CORPUSCULAR HGB CONC 31.6 g/dl (32.0-36.5); MEAN CORPUSCULAR VOLUME 85.8 fl (80.0-96.0); MONO # 0.4 10^3/uL (0.0-0.8); MONO % 5.9 % (0.0-5.0); NEUTROPHILS # 3.1 10^3/uL (1.8-7.7); NEUTROPHILS % 44.2 % (36.0-66.0); PLATELET COUNT, AUTOMATED 263 10^3/uL (150-450); RED BLOOD COUNT 4.38 10^6/uL (4.00-5.40); RED CELL DISTRIBUTION WIDTH 16.2 % (11.5-14.5); WHITE BLOOD COUNT 6.9 10^3/uL (4.0-10.0)
[2017-03-17 10:56] LABS: ALBUMIN 3.6 GM/DL (3.2-5.2); ALBUMIN/GLOBULIN RATIO 1.24 (1.00-1.93); ALKALINE PHOSPHATASE 87 U/L (45-117); ALT/SGPT 26 U/L (12-78); ANION GAP 2 MEQ/L (8-16); AST/SGOT 20 U/L (7-37); BILIRUBIN,TOTAL 0.3 MG/DL (0.2-1.0); BLOOD UREA NITROGEN 11 MG/DL (7-18); C REACTIVE PROTEIN QUANTITATIV < 0.30 MG/DL (0.00-0.30); CARBON DIOXIDE LEVEL 32 MEQ/L (21-32); CHLORIDE LEVEL 106 MEQ/L (98-107); CREATININE FOR GFR 0.72 MG/DL (0.55-1.02); GLOMERULAR FILTRATION RATE > 60.0 (>51); GLUCOSE, FASTING 92 MG/DL (70-105); SODIUM LEVEL 140 MEQ/L (136-145); TOTAL PROTEIN 6.5 GM/DL (6.4-8.2)
[2017-03-17 11:21] LABS: ERYTHROCYTE SEDIMENTATION RATE 10 mm/hr (0-30)
== END ==
LOC: M LAB 09:18
DX: T81.4XXD Infection following a procedure, subsequent encounter (principal); Z79.2 Long term (current) use of antibiotics
CPT/HCPCS: 80053

== ENCOUNTER 2017-04-01 16:23 | Emergency (ER) | payer OTHER, SELFPAY ==
[2017-04-01] MEDS: PERCOCET 5MG/325MG TAB PO (17:15)
== END 2017-04-01 18:38 | disposition home or self-care (01) ==
LOC: M ED 16:23
DX: S70.01XA Contusion of right hip, initial encounter (principal); S90.01XA Contusion of right ankle, initial encounter; S90.31XA Contusion of right foot, initial encounter; S20.229A Contusion of unspecified back wall of thorax, initial encounter; W19.XXXA Unspecified fall, initial encounter; Y92.009 Unspecified place in unspecified non-institutional (private) residence as the place of occurrence of the external cause; M54.9 Dorsalgia, unspecified; G89.29 Other chronic pain; J45.909 Unspecified asthma, uncomplicated; F31.9 Bipolar disorder, unspecified; F43.10 Post-traumatic stress disorder, unspecified; Z79.899 Other long term (current) drug therapy; Z79.82 Long term (current) use of aspirin; Z79.51 Long term (current) use of inhaled steroids; Z79.84 Long term (current) use of oral hypoglycemic drugs; Z88.0 Allergy status to penicillin; Z88.1 Allergy status to other antibiotic agents; Z91.011 Allergy to milk products
CPT/HCPCS: 72110

== ENCOUNTER → 2017-04-26 | Outpatient (CLI) | payer OTHER ==
[2017-04-26 10:34] LABS: BASO % 0.7 % (0.0-1.0); EOS # 0.2 10^3/uL (0.0-0.50); EOS % 3.9 % (0.0-3.0); HEMATOCRIT 38.3 % (36.0-47.0); HEMOGLOBIN 12.1 g/dl (12.0-16.0); IMMATURE GRANULOCYTE % 0.2 % (0-3.0); LYMPH # 2.2 10^3/uL (1.5-4.5); LYMPH % 41.1 % (24.0-44.0); MEAN CORPUSCULAR HEMOGLOBIN 27.6 pg (27.0-33.0); MEAN CORPUSCULAR HGB CONC 31.6 g/dl (32.0-36.5); MEAN CORPUSCULAR VOLUME 87.2 fl (80.0-96.0); MONO # 0.4 10^3/uL (0.0-0.8); NEUTROPHILS # 2.6 10^3/uL (1.8-7.7); NEUTROPHILS % 47.1 % (36.0-66.0); PLATELET COUNT, AUTOMATED 247 10^3/uL (150-450); RED BLOOD COUNT 4.39 10^6/uL (4.00-5.40); RED CELL DISTRIBUTION WIDTH 16.1 % (11.5-14.5); WHITE BLOOD COUNT 5.4 10^3/uL (4.0-10.0)
[2017-04-26 10:52] LABS: ALBUMIN 3.7 GM/DL (3.2-5.2); ALBUMIN/GLOBULIN RATIO 1.37 (1.00-1.93); ALKALINE PHOSPHATASE 77 U/L (45-117); ALT/SGPT 24 U/L (12-78); ANION GAP 6 MEQ/L (8-16); AST/SGOT 17 U/L (7-37); BILIRUBIN,TOTAL 0.4 MG/DL (0.2-1.0); BLOOD UREA NITROGEN 12 MG/DL (7-18); C REACTIVE PROTEIN QUANTITATIV < 0.30 MG/DL (0.00-0.30); CALCIUM LEVEL 8.8 MG/DL (8.5-10.1); CARBON DIOXIDE LEVEL 31 MEQ/L (21-32); CHLORIDE LEVEL 105 MEQ/L (98-107); CREATININE FOR GFR 0.76 MG/DL (0.55-1.30); GLOMERULAR FILTRATION RATE > 60.0 (>51); GLUCOSE, FASTING 97 MG/DL (70-100); POTASSIUM SERUM 4.8 MEQ/L (3.5-5.1); SODIUM LEVEL 142 MEQ/L (136-145); TOTAL PROTEIN 6.4 GM/DL (6.4-8.2)
[2017-04-26 11:04] LABS: ERYTHROCYTE SEDIMENTATION RATE 8 mm/hr (0-30)
== END ==
LOC: M LAB 09:22
DX: T81.4XXD Infection following a procedure, subsequent encounter (principal); Z79.2 Long term (current) use of antibiotics; X58.XXXD Exposure to other specified factors, subsequent encounter; Y92.89 Other specified places as the place of occurrence of the external cause
CPT/HCPCS: 80053

== ENCOUNTER → 2017-04-27 | Outpatient (REF) | payer OTHER, MEDICAID ==
[2017-04-27 14:39] LABS: BASO % 0.7 % (0.0-1.0); EOS # 0.2 10^3/uL (0.0-0.50); EOS % 3.7 % (0.0-3.0); HEMATOCRIT 36.9 % (36.0-47.0); HEMOGLOBIN 11.6 g/dl (12.0-16.0); IMMATURE GRANULOCYTE % 0.3 % (0-3.0); LYMPH # 2.5 10^3/uL (1.5-4.5); MEAN CORPUSCULAR HEMOGLOBIN 27.6 pg (27.0-33.0); MEAN CORPUSCULAR HGB CONC 31.4 g/dl (32.0-36.5); MEAN CORPUSCULAR VOLUME 87.9 fl (80.0-96.0); MONO # 0.4 10^3/uL (0.0-0.8); MONO % 6.2 % (0.0-5.0); NEUTROPHILS # 2.9 10^3/uL (1.8-7.7); NEUTROPHILS % 48.1 % (36.0-66.0); PLATELET COUNT, AUTOMATED 238 10^3/uL (150-450); RED CELL DISTRIBUTION WIDTH 16.3 % (11.5-14.5)
[2017-04-27 14:57] LABS: TOTAL 25(OH) VITAMIN D 26.2 NG/ML (30.0-100.0)
[2017-04-27 15:09] LABS: ALBUMIN 3.3 GM/DL (3.2-5.2); ALBUMIN/GLOBULIN RATIO 1.18 (1.00-1.93); ALKALINE PHOSPHATASE 79 U/L (45-117); ALT/SGPT 22 U/L (12-78); ANION GAP 11 MEQ/L (8-16); AST/SGOT 11 U/L (7-37); BILIRUBIN,TOTAL 0.2 MG/DL (0.2-1.0); BLOOD UREA NITROGEN 16 MG/DL (7-18); CALCIUM LEVEL 8.2 MG/DL (8.5-10.1); CARBON DIOXIDE LEVEL 24 MEQ/L (21-32); CHLORIDE LEVEL 109 MEQ/L (98-107); CHOLESTEROL LEVEL 185 MG/DL (<200); CHOLESTEROL RISK RATIO 4.021 (<5); CREATININE FOR GFR 0.81 MG/DL (0.55-1.30); GLOMERULAR FILTRATION RATE > 60.0 (>51); GLUCOSE, FASTING 116 MG/DL (70-100); HDL CHOLESTEROL 46 MG/DL (>40); NON-HDL-C 139 MG/DL; POTASSIUM SERUM 3.9 MEQ/L (3.5-5.1); SODIUM LEVEL 144 MEQ/L (136-145); TOTAL PROTEIN 6.1 GM/DL (6.4-8.2); TRIGLYCERIDES LEVEL 407 MG/DL (<150)
[2017-04-27 15:11] LABS: ESTIMATED AVERAGE GLUCOSE 126 MG/DL (60-110)
== END ==
LOC: M LAB REF 14:01
DX: Z13.9 Encounter for screening, unspecified (principal)

== ENCOUNTER → 2017-05-24 | Outpatient (CLI) | payer OTHER ==
[2017-05-24 08:51] LABS: BASO # 0.1 10^3/uL (0.0-0.2); BASO % 0.8 % (0.0-1.0); EOS # 0.2 10^3/uL (0.0-0.50); EOS % 3.7 % (0.0-3.0); HEMATOCRIT 35.4 % (36.0-47.0); HEMOGLOBIN 11.3 g/dl (12.0-16.0); IMMATURE GRANULOCYTE % 0.3 % (0-3.0); LYMPH # 2.9 10^3/uL (1.5-4.5); LYMPH % 48.8 % (24.0-44.0); MEAN CORPUSCULAR HEMOGLOBIN 27.6 pg (27.0-33.0); MEAN CORPUSCULAR HGB CONC 31.9 g/dl (32.0-36.5); MEAN CORPUSCULAR VOLUME 86.3 fl (80.0-96.0); MONO # 0.4 10^3/uL (0.0-0.8); MONO % 7.3 % (0.0-5.0); NEUTROPHILS # 2.3 10^3/uL (1.8-7.7); NEUTROPHILS % 39.1 % (36.0-66.0); PLATELET COUNT, AUTOMATED 237 10^3/uL (150-450); RED CELL DISTRIBUTION WIDTH 15.7 % (11.5-14.5)
[2017-05-24 09:31] LABS: ALBUMIN 3.3 GM/DL (3.2-5.2); ALBUMIN/GLOBULIN RATIO 1.18 (1.00-1.93); ALKALINE PHOSPHATASE 75 U/L (45-117); ALT/SGPT 30 U/L (12-78); ANION GAP 8 MEQ/L (8-16); AST/SGOT 18 U/L (7-37); BILIRUBIN,TOTAL 0.3 MG/DL (0.2-1.0); BLOOD UREA NITROGEN 16 MG/DL (7-18); C REACTIVE PROTEIN QUANTITATIV < 0.30 MG/DL (0.00-0.30); CALCIUM LEVEL 8.3 MG/DL (8.5-10.1); CARBON DIOXIDE LEVEL 29 MEQ/L (21-32); CHLORIDE LEVEL 106 MEQ/L (98-107); CREATININE FOR GFR 0.74 MG/DL (0.55-1.30); GLOMERULAR FILTRATION RATE > 60.0 (>51); GLUCOSE, FASTING 116 MG/DL (70-100); POTASSIUM SERUM 4.4 MEQ/L (3.5-5.1); SODIUM LEVEL 143 MEQ/L (136-145); TOTAL PROTEIN 6.1 GM/DL (6.4-8.2)
[2017-05-24 09:35] LABS: ERYTHROCYTE SEDIMENTATION RATE 10 mm/hr (0-30)
== END ==
LOC: M LAB 08:09
DX: T81.4XXD Infection following a procedure, subsequent encounter (principal); Z79.2 Long term (current) use of antibiotics
CPT/HCPCS: 80053

== ENCOUNTER → 2017-05-24 | Outpatient (CLI) | payer OTHER | LOC: M RAD 07:35 | DX: J32.0 Chronic maxillary sinusitis (principal) | CPT/HCPCS: 70486 ==

== ENCOUNTER → 2017-06-23 | Outpatient (CLI) | payer OTHER ==
[2017-06-23 11:38] LABS: BASO % 0.2 % (0.0-1.0); EOS % 0.1 % (0.0-3.0); HEMATOCRIT 37.5 % (36.0-47.0); HEMOGLOBIN 11.9 g/dl (12.0-15.5); IMMATURE GRANULOCYTE % 0.8 % (0-3.0); LYMPH # 2.3 10^3/uL (1.5-4.5); LYMPH % 18.5 % (24.0-44.0); MEAN CORPUSCULAR HEMOGLOBIN 26.8 pg (27.0-33.0); MEAN CORPUSCULAR HGB CONC 31.7 g/dl (32.0-36.5); MEAN CORPUSCULAR VOLUME 84.5 fl (80.0-96.0); MONO # 0.6 10^3/uL (0.0-0.8); MONO % 4.6 % (0.0-5.0); NEUTROPHILS # 9.3 10^3/uL (1.8-7.7); NEUTROPHILS % 75.8 % (36.0-66.0); PLATELET COUNT, AUTOMATED 263 10^3/uL (150-450); RED BLOOD COUNT 4.44 10^6/uL (4.00-5.40); RED CELL DISTRIBUTION WIDTH 15.4 % (11.5-14.5); WHITE BLOOD COUNT 12.3 10^3/uL (4.0-10.0)
[2017-06-23 12:09] LABS: ALBUMIN 3.7 GM/DL (3.2-5.2); ALBUMIN/GLOBULIN RATIO 1.09 (1.00-1.93); ALKALINE PHOSPHATASE 83 U/L (45-117); ALT/SGPT 26 U/L (12-78); ANION GAP 6 MEQ/L (8-16); AST/SGOT 15 U/L (7-37); BILIRUBIN,TOTAL 0.5 MG/DL (0.2-1.0); BLOOD UREA NITROGEN 12 MG/DL (7-18); C REACTIVE PROTEIN QUANTITATIV < 0.30 MG/DL (0.00-0.30); CALCIUM LEVEL 9.2 MG/DL (8.5-10.1); CARBON DIOXIDE LEVEL 29 MEQ/L (21-32); CHLORIDE LEVEL 108 MEQ/L (98-107); CREATININE FOR GFR 0.72 MG/DL (0.55-1.30); GLOMERULAR FILTRATION RATE > 60.0 (>51); GLUCOSE, FASTING 98 MG/DL (70-100); POTASSIUM SERUM 4.9 MEQ/L (3.5-5.1); SODIUM LEVEL 143 MEQ/L (136-145); TOTAL PROTEIN 7.1 GM/DL (6.4-8.2)
[2017-06-23 13:27] LABS: ERYTHROCYTE SEDIMENTATION RATE 10 mm/hr (0-30)
== END ==
LOC: M LAB 11:04
DX: Z51.81 Encounter for therapeutic drug level monitoring (principal); Z79.2 Long term (current) use of antibiotics
CPT/HCPCS: 80053

== ENCOUNTER 2017-06-24 19:37 | Emergency (ER) | payer OTHER ==
[2017-06-24] MEDS: PERCOCET 5MG/325MG TAB PO (20:57)
[2017-06-24] MEDS: SILVER SULFADIAZINE 1% CR 50 GM JAR TOP (20:58)
== END 2017-06-24 21:15 | disposition home or self-care (01) ==
LOC: M ED 19:37
DX: T23.102A Burn of first degree of left hand, unspecified site, initial encounter (principal); T31.0 Burns involving less than 10% of body surface; X12.XXXA Contact with other hot fluids, initial encounter; Y92.018 Other place in single-family (private) house as the place of occurrence of the external cause; E11.9 Type 2 diabetes mellitus without complications; I10 Essential (primary) hypertension; J45.909 Unspecified asthma, uncomplicated; E78.5 Hyperlipidemia, unspecified; K21.9 Gastro-esophageal reflux disease without esophagitis; F41.9 Anxiety disorder, unspecified; F33.9 Major depressive disorder, recurrent, unspecified; G90.50 Complex regional pain syndrome I, unspecified; M51.9 Unspecified thoracic, thoracolumbar and lumbosacral intervertebral disc disorder; Z79.899 Other long term (current) drug therapy; Z79.82 Long term (current) use of aspirin; Z79.84 Long term (current) use of oral hypoglycemic drugs; Z79.51 Long term (current) use of inhaled steroids; Z88.0 Allergy status to penicillin; Z88.1 Allergy status to other antibiotic agents; Z88.8 Allergy status to other drugs, medicaments and biological substances; Z91.018 Allergy to other foods; Z87.891 Personal history of nicotine dependence
CPT/HCPCS: 99282

== ENCOUNTER → 2017-08-05 | Outpatient (REF) | payer OTHER ==
[2017-08-05 12:29] LABS: BASO # 0.1 10^3/uL (0.0-0.2); BASO % 0.8 % (0.0-1.0); EOS # 0.2 10^3/uL (0.0-0.50); EOS % 3.4 % (0.0-3.0); HEMATOCRIT 37.1 % (36.0-47.0); HEMOGLOBIN 11.7 g/dl (12.0-15.5); IMMATURE GRANULOCYTE % 0.2 % (0-3.0); LYMPH # 2.2 10^3/uL (1.5-4.5); LYMPH % 37.7 % (24.0-44.0); MEAN CORPUSCULAR HEMOGLOBIN 26.4 pg (27.0-33.0); MEAN CORPUSCULAR HGB CONC 31.5 g/dl (32.0-36.5); MEAN CORPUSCULAR VOLUME 83.7 fl (80.0-96.0); MONO # 0.4 10^3/uL (0.0-0.8); MONO % 7.3 % (0.0-5.0); NEUTROPHILS % 50.6 % (36.0-66.0); PLATELET COUNT, AUTOMATED 234 10^3/uL (150-450); RED BLOOD COUNT 4.43 10^6/uL (4.00-5.40); RED CELL DISTRIBUTION WIDTH 16.7 % (11.5-14.5); WHITE BLOOD COUNT 5.9 10^3/uL (4.0-10.0)
[2017-08-05 12:46] LABS: ERYTHROCYTE SEDIMENTATION RATE 7 mm/hr (0-30)
[2017-08-05 12:53] LABS: ALBUMIN 3.7 GM/DL (3.2-5.2); ALBUMIN/GLOBULIN RATIO 1.19 (1.00-1.93); ALKALINE PHOSPHATASE 84 U/L (45-117); ALT/SGPT 31 U/L (12-78); ANION GAP 5 MEQ/L (8-16); AST/SGOT 22 U/L (7-37); BILIRUBIN,TOTAL 0.5 MG/DL (0.2-1.0); BLOOD UREA NITROGEN 11 MG/DL (7-18); C REACTIVE PROTEIN QUANTITATIV < 0.30 MG/DL (0.00-0.30); CARBON DIOXIDE LEVEL 31 MEQ/L (21-32); CHLORIDE LEVEL 107 MEQ/L (98-107); CREATININE FOR GFR 0.73 MG/DL (0.55-1.30); GLOMERULAR FILTRATION RATE > 60.0 (>51); GLUCOSE, FASTING 98 MG/DL (70-100); POTASSIUM SERUM 4.8 MEQ/L (3.5-5.1); SODIUM LEVEL 143 MEQ/L (136-145); TOTAL PROTEIN 6.8 GM/DL (6.4-8.2)
== END ==
LOC: M LAB REF 12:12
DX: Z51.81 Encounter for therapeutic drug level monitoring (principal); Z79.2 Long term (current) use of antibiotics; T81.4XXD Infection following a procedure, subsequent encounter

== ENCOUNTER → 2017-08-05 | Outpatient (REF) | payer OTHER ==
[2017-08-05 13:20] LABS: ESTIMATED AVERAGE GLUCOSE 140 MG/DL (60-110); HEMOGLOBIN A1c 6.5 %
== END ==
LOC: M LAB REF 12:10
DX: E11.9 Type 2 diabetes mellitus without complications (principal)

== ENCOUNTER → 2017-08-22 | Outpatient (CLI) | payer OTHER | LOC: M RAD 09:46 | DX: Z12.31 Encounter for screening mammogram for malignant neoplasm of breast (principal); Z80.3 Family history of malignant neoplasm of breast; Z92.0 Personal history of contraception; E65 Localized adiposity | CPT/HCPCS: 77067 ==

== ENCOUNTER → 2017-08-24 | Outpatient (CLI) | payer OTHER ==
[2017-08-24 10:32] LABS: HEMATOCRIT 36.9 % (36.0-47.0); HEMOGLOBIN 11.6 g/dl (12.0-15.5); MEAN CORPUSCULAR HGB CONC 31.4 g/dl (32.0-36.5); MEAN CORPUSCULAR VOLUME 82.6 fl (80.0-96.0); PLATELET COUNT, AUTOMATED 245 10^3/uL (150-450); RED BLOOD COUNT 4.47 10^6/uL (4.00-5.40); RED CELL DISTRIBUTION WIDTH 16.4 % (11.5-14.5); WHITE BLOOD COUNT 5.9 10^3/uL (4.0-10.0)
[2017-08-24 10:53] LABS: ALBUMIN 3.3 GM/DL (3.2-5.2); ALKALINE PHOSPHATASE 80 U/L (45-117); ALT/SGPT 28 U/L (12-78); ANION GAP 7 MEQ/L (8-16); AST/SGOT 15 U/L (7-37); BILIRUBIN,TOTAL 0.3 MG/DL (0.2-1.0); BLOOD UREA NITROGEN 10 MG/DL (7-18); C REACTIVE PROTEIN QUANTITATIV < 0.30 MG/DL (0.00-0.30); CALCIUM LEVEL 8.4 MG/DL (8.5-10.1); CARBON DIOXIDE LEVEL 29 MEQ/L (21-32); CHLORIDE LEVEL 110 MEQ/L (98-107); CREATININE FOR GFR 0.71 MG/DL (0.55-1.30); GLOMERULAR FILTRATION RATE > 60.0 (>51); GLUCOSE, FASTING 95 MG/DL (70-100); POTASSIUM SERUM 4.3 MEQ/L (3.5-5.1); SODIUM LEVEL 146 MEQ/L (136-145); TOTAL PROTEIN 6.3 GM/DL (6.4-8.2)
[2017-08-24 11:01] LABS: ERYTHROCYTE SEDIMENTATION RATE 8 mm/hr (0-30)
== END ==
LOC: M LAB 10:10
DX: T81.4XXD Infection following a procedure, subsequent encounter (principal)
CPT/HCPCS: 80053

== ENCOUNTER → 2017-08-24 | Outpatient (CLI) | payer OTHER | LOC: M RAD 07:46 | DX: R11.2 Nausea with vomiting, unspecified (principal) ==

== ENCOUNTER 2017-09-05 17:00 | Emergency (ER) | payer OTHER ==
[2017-09-05] MEDS: METOCLOPRAMIDE INJ 10MG/2ML VIAL (J2765) IV (18:37)
[2017-09-05] MEDS: diphenhydrAMINE INJ 50MG/ML VIAL (J1200) IV (18:37)
[2017-09-05] MEDS: NS 1,000 ML IV (18:38)
[2017-09-05] MEDS: KETOROLAC 30 MG/ML VIAL (J1885) IV (18:38)
[2017-09-05] MEDS: ADACEL/BOOSTRIX VACCINE (DIPHTH/PERTUSS/ACELL/TETANUS)0.5ML SYR (90715) IM (19:46)
== END 2017-09-05 19:49 | disposition home or self-care (01) ==
LOC: M ED 17:00
DX: S06.0X0A Concussion without loss of consciousness, initial encounter (principal); T14.8XXA Other injury of unspecified body region, initial encounter; V18.4XXA Pedal cycle driver injured in noncollision transport accident in traffic accident, initial encounter; Y92.410 Unspecified street and highway as the place of occurrence of the external cause; Y93.55 Activity, bike riding; Y99.9 Unspecified external cause status; Z87.891 Personal history of nicotine dependence; Z79.82 Long term (current) use of aspirin; Z79.84 Long term (current) use of oral hypoglycemic drugs; Z79.899 Other long term (current) drug therapy; Z88.8 Allergy status to other drugs, medicaments and biological substances; Z88.1 Allergy status to other antibiotic agents; Z88.0 Allergy status to penicillin; Z91.89 Other specified personal risk factors, not elsewhere classified; Z91.011 Allergy to milk products
CPT/HCPCS: J1200

== ENCOUNTER → 2017-09-15 | Outpatient (REF) | payer OTHER | LOC: M LAB REF 18:27 | DX: N30.00 Acute cystitis without hematuria (principal) | CPT/HCPCS: 87186 ==

== ENCOUNTER 2017-10-13 15:56 | Emergency (ER) | payer OTHER ==
[2017-10-13 17:09] LABS: BASO % 0.7 % (0.0-1.0); EOS # 0.2 10^3/uL (0.0-0.50); EOS % 2.5 % (0.0-3.0); HEMATOCRIT 31.5 % (36.0-47.0); HEMOGLOBIN 9.8 g/dl (12.0-15.5); IMMATURE GRANULOCYTE % 0.3 % (0-3.0); LYMPH # 2.7 10^3/uL (1.5-4.5); LYMPH % 43.8 % (24.0-44.0); MEAN CORPUSCULAR HEMOGLOBIN 26.1 pg (27.0-33.0); MEAN CORPUSCULAR HGB CONC 31.1 g/dl (32.0-36.5); MONO # 0.4 10^3/uL (0.0-0.8); MONO % 6.1 % (0.0-5.0); NEUTROPHILS # 2.8 10^3/uL (1.8-7.7); NEUTROPHILS % 46.6 % (36.0-66.0); PLATELET COUNT, AUTOMATED 208 10^3/uL (150-450); RED BLOOD COUNT 3.75 10^6/uL (4.00-5.40); RED CELL DISTRIBUTION WIDTH 17.2 % (11.5-14.5); WHITE BLOOD COUNT 6.1 10^3/uL (4.0-10.0)
[2017-10-13 17:17] LABS: ANION GAP 8 MEQ/L (8-16); BLOOD UREA NITROGEN 11 MG/DL (7-18); CALCIUM LEVEL 8.3 MG/DL (8.5-10.1); CARBON DIOXIDE LEVEL 26 MEQ/L (21-32); CHLORIDE LEVEL 113 MEQ/L (98-107); CK-MB VALUE MASS 1.8 NG/ML (<3.6); CPK CREATINE PHOSPHOKINASE 132 U/L (26-192); CREATININE FOR GFR 0.89 MG/DL (0.55-1.30); GLOMERULAR FILTRATION RATE > 60.0 (>51); GLUCOSE, FASTING 121 MG/DL (70-100); MB/CK RELATIVE INDEX 1.36 (< OR =4); POTASSIUM SERUM 3.5 MEQ/L (3.5-5.1); SODIUM LEVEL 147 MEQ/L (136-145); TROPONIN I < 0.02 NG/ML (< 0.10)
[2017-10-13] MEDS ORDERED: ISOVUE-370 76% 100ML VIAL (Q9967) As Ordered (17:57)
[2017-10-13 17:59] LABS: ALBUMIN 3.2 GM/DL (3.2-5.2); ALBUMIN/GLOBULIN RATIO 1.19 (1.00-1.93); ALKALINE PHOSPHATASE 68 U/L (45-117); ALT/SGPT 28 U/L (12-78); AST/SGOT 16 U/L (7-37); BILIRUBIN,DIRECT < 0.1 MG/DL (0.0-0.2); BILIRUBIN,TOTAL 0.2 MG/DL (0.2-1.0); NT-PRO BNP 48 PG/ML (<125); TOTAL PROTEIN 5.9 GM/DL (6.4-8.2)
[2017-10-13 18:08] LABS: LIPASE 149 U/L (73-393)
[2017-10-13] MEDS ORDERED: ONDANSETRON 4MG/2ML VIAL (J2405) As Ordered (18:19)
[2017-10-13] MEDS: ONDANSETRON 4MG/2ML VIAL (J2405) IV (18:22)
[2017-10-13 21:34] LABS: CK-MB VALUE MASS 1.3 NG/ML (<3.6); CPK CREATINE PHOSPHOKINASE 124 U/L (26-192); MB/CK RELATIVE INDEX 1.04 (< OR =4); TROPONIN I < 0.02 NG/ML (< 0.10)
== END 2017-10-13 22:39 | disposition home or self-care (01) ==
LOC: M ED 15:56
DX: R07.89 Other chest pain (principal); R10.9 Unspecified abdominal pain; M79.604 Pain in right leg; M79.605 Pain in left leg; R11.2 Nausea with vomiting, unspecified; E11.9 Type 2 diabetes mellitus without complications; E78.5 Hyperlipidemia, unspecified; J45.909 Unspecified asthma, uncomplicated; K82.9 Disease of gallbladder, unspecified; Z86.14 Personal history of Methicillin resistant Staphylococcus aureus infection; F17.200 Nicotine dependence, unspecified, uncomplicated; Z88.8 Allergy status to other drugs, medicaments and biological substances; Z88.1 Allergy status to other antibiotic agents; Z88.4 Allergy status to anesthetic agent; Z88.0 Allergy status to penicillin; Z91.011 Allergy to milk products; Z79.899 Other long term (current) drug therapy; Z79.82 Long term (current) use of aspirin; Z79.84 Long term (current) use of oral hypoglycemic drugs
CPT/HCPCS: J2405

== ENCOUNTER → 2017-10-19 | Outpatient (REF) | payer OTHER ==
[2017-10-19 14:25] LABS: BASO # 0.1 10^3/uL (0.0-0.2); BASO % 0.9 % (0.0-1.0); EOS # 0.2 10^3/uL (0.0-0.50); EOS % 4.2 % (0.0-3.0); HEMATOCRIT 36.1 % (36.0-47.0); IMMATURE GRANULOCYTE % 0.3 % (0-3.0); MEAN CORPUSCULAR HEMOGLOBIN 26.2 pg (27.0-33.0); MEAN CORPUSCULAR HGB CONC 30.5 g/dl (32.0-36.5); MONO # 0.4 10^3/uL (0.0-0.8); MONO % 7.3 % (0.0-5.0); NEUTROPHILS # 3.1 10^3/uL (1.8-7.7); NEUTROPHILS % 53.3 % (36.0-66.0); PLATELET COUNT, AUTOMATED 222 10^3/uL (150-450); RED CELL DISTRIBUTION WIDTH 17.2 % (11.5-14.5); WHITE BLOOD COUNT 5.7 10^3/uL (4.0-10.0)
[2017-10-19 14:52] LABS: FERRITIN 7 NG/ML (8-252)
[2017-10-19 14:52] LABS: IRON (FE) 29 UG/DL (50-170)
== END ==
LOC: M LAB REF 13:56
DX: D64.9 Anemia, unspecified (principal)

== ENCOUNTER → 2017-11-09 | Outpatient (CLI) | payer OTHER | LOC: M RAD 06:50 | DX: R10.9 Unspecified abdominal pain (principal); R11.2 Nausea with vomiting, unspecified | CPT/HCPCS: J2805 ==

== ENCOUNTER 2017-11-15 08:44 | Emergency (ER) | payer OTHER ==
[2017-11-15 09:24] LABS: KETONE, URINE AUTO RFX NEGATIVE (NEGATIVE); NITRITE, URINE AUTO RFX NEGATIVE (NEGATIVE); RBC, URINE AUTO RFX 2 /HPF (0-3); SPECIFIC GRAVITY UR AUTO RFX 1.003 (1.002-1.035); SQUAM EPITHELIAL CELL UR AURFX 2 /HPF (0-6)
[2017-11-15 09:27] LABS: LEUKOCYTE ESTERASE UR AUTO RFX 3+ (NEGATIVE); WBC, URINE AUTO RFX 131 /HPF (0-3)
== END 2017-11-15 09:50 | disposition home or self-care (01) ==
LOC: M ED 08:44
DX: N39.0 Urinary tract infection, site not specified (principal); E11.9 Type 2 diabetes mellitus without complications; I10 Essential (primary) hypertension; F17.200 Nicotine dependence, unspecified, uncomplicated
CPT/HCPCS: 81001

== ENCOUNTER → 2017-11-24 | Outpatient (REF) | payer OTHER, MEDICAID ==
[2017-11-24 14:07] LABS: APPEARANCE, URINE CLOUDY (CLEAR); BACTERIA, URINE AUTO 1+ (NEGATIVE); BILIRUBIN, URINE AUTO NEGATIVE (NEGATIVE); BLOOD, URINE BLOOD NEGATIVE (NEGATIVE); CALCIUM OXALATE CRYSTALS MODERATE; COLOR, URINE AMBER (YELLOW); GLUCOSE, URINE (UA) AUTO NEGATIVE (NEGATIVE); KETONE, URINE AUTO NEGATIVE (NEGATIVE); LEUKOCYTE ESTERASE, URINE AUTO NEGATIVE (NEGATIVE); MUCUS, URINE SMALL (NEGATIVE); NITRITE, URINE AUTO NEGATIVE (NEGATIVE); PROTEIN, URINE AUTO NEGATIVE (NEGATIVE); RBC, URINE AUTO 1 /HPF (0-3); SPECIFIC GRAVITY URINE AUTO 1.023 (1.002-1.035); SQUAMOUS EPITHELIAL CELL UR AU 2 /HPF (0-6); UROBILINOGEN, URINE AUTO 0.2 mg/dL (0.0-2.0); WBC, URINE AUTO 2 /HPF (0-3)
[2017-11-24 14:46] LABS: ESTIMATED AVERAGE GLUCOSE 123 MG/DL (60-110); HEMOGLOBIN A1c 5.9 %
[2017-11-28 14:16] LABS: HEPATITIS C QUANTITATION HCV Not Detected IU/mL (.)
== END ==
LOC: M LAB REF 13:23
DX: N39.0 Urinary tract infection, site not specified (principal)

== ENCOUNTER 2017-12-26 10:25 | Day surgery (SDC) | payer OTHER ==
[~2017-12-26 10:25] MED LIST changes: -/ADVA50050; -/ATOR40TA; -/ATOR40TA OR; -/ESCI20TA; -/ESOM40CA; -/ESOM40CA OR; -/MOXI40TA; -ABIL10TA; -ABIL5TAB OR; -AMBI10TA; -AMMO12LO; -ASPI81TA85 PO; -ASTLIN; -ATARAX; -ATOR1TAB21 PO; -BENA25TA10 PO; -BREO1INH3 INH; -CALC600T57 PO; -CALCTAB75 PO; -CELE20TA PO; -CETI10CH PO; -CETI10TA; -CETI1SYP16 PO; -CETI5SOL2 PO; -CITA20TA4 PO; -CLON1TAB; -CRES20TA OR; -DIAZ10TA2 PO; -DOXE100CA PO; -DOXE150C7 PO; -DOXY-278 PO; -ERYTHROMYCI1; -ESOM1CAP5 PO; -FLEXERIL; -FLEXERIL OR; -FLEXERIL PO; -FLUC150T PO; -HYDR50TA8 OR; -HYDROXYZINE PAMOATE; -IBUP-1022 PO; -IBUP600T OR; -IBUP800T OR; -KLON1TAB OR; -LAMI25TA OR; -LAVAZA PO; +LIDOCAINE 2% INJ 100 MG/5 ML SDV (FOR ANES.) As Ordered; -LIPI20TA; -LIPI20TA PO; -LOPERAMIDE; -LYRI75CA OR; -METF500T13 PO; -METO5TAB2; -METO5TAB2 OR; -MIRA3350 PO; -MIRALEX; -MIRALEX PO; -MUCINEX; -NICO21DI5 TD; -OMEP40CA2 PO; -PATA0.2S OU; -PRED10TA2 PO; -PREG50CA; +PROPOFOL 200 MG/20 ML VIAL As Ordered; -QUET20XRTB; -QUET30TA; -RALO1TAB PO; -SERO200T; -SERO200T OR; -SERT100T; -SERT50TA2; -SILV40CR TOP; -SING10TA31; -SING10TA31 OR; -SYMB80AE IN; -SYST1SOL OU; -TEMA15CA2 PO; -TEMA7.5C PO; -TOPI100T; -TOPI50TA; -TRAZ100T; -TRAZ50TA; -TRAZ50TA OR; -ULTR50TA8 PO; -VALA500T2 PO; -VALI10TA PO; -VALT500T; -VANC250C2 PO; -VENTAER; -VENTAER IN; -VIST25CA; -VITAMIN D50000 UNT; -VITAMIN D50000 UNT OR; -ZOLO100T; -ZOLO50TA; -ZOVI5OIN; -seroquel
[2017-12-26] MEDS: NS 1,000 ML IV (11:07)
== END 2017-12-26 12:59 | disposition home or self-care (01) ==
LOC: M OPP 10:25
DX: D50.9 Iron deficiency anemia, unspecified (principal); R19.4 Change in bowel habit; D12.5 Benign neoplasm of sigmoid colon; K64.0 First degree hemorrhoids; K57.30 Diverticulosis of large intestine without perforation or abscess without bleeding; R10.13 Epigastric pain; K31.89 Other diseases of stomach and duodenum; K29.70 Gastritis, unspecified, without bleeding; I10 Essential (primary) hypertension; E78.5 Hyperlipidemia, unspecified; E11.9 Type 2 diabetes mellitus without complications; K59.00 Constipation, unspecified; R11.10 Vomiting, unspecified; K21.9 Gastro-esophageal reflux disease without esophagitis; R12 Heartburn; G90.50 Complex regional pain syndrome I, unspecified; Z86.14 Personal history of Methicillin resistant Staphylococcus aureus infection; M19.90 Unspecified osteoarthritis, unspecified site; F41.9 Anxiety disorder, unspecified; F32.9 Major depressive disorder, single episode, unspecified; Z97.8 Presence of other specified devices; G62.9 Polyneuropathy, unspecified; J45.909 Unspecified asthma, uncomplicated; Z87.440 Personal history of urinary (tract) infections; Z87.891 Personal history of nicotine dependence; Z88.8 Allergy status to other drugs, medicaments and biological substances; Z88.1 Allergy status to other antibiotic agents; Z88.3 Allergy status to other anti-infective agents; Z88.5 Allergy status to narcotic agent; Z88.0 Allergy status to penicillin; Z91.011 Allergy to milk products; Z79.82 Long term (current) use of aspirin; Z79.899 Other long term (current) drug therapy; Z79.84 Long term (current) use of oral hypoglycemic drugs
CPT/HCPCS: 45380

== ENCOUNTER 2018-02-16 19:57 | Emergency (ER) | payer OTHER ==
[2018-02-16] MEDS: GABAPENTIN 300 MG CAP PO (23:35)
== END 2018-02-16 23:40 | disposition home or self-care (01) ==
LOC: M ED 19:57
DX: E11.40 Type 2 diabetes mellitus with diabetic neuropathy, unspecified (principal); G62.9 Polyneuropathy, unspecified; F41.1 Generalized anxiety disorder; J45.909 Unspecified asthma, uncomplicated; F17.200 Nicotine dependence, unspecified, uncomplicated
CPT/HCPCS: 73630

== ENCOUNTER 2018-02-18 14:14 | Emergency (ER) | payer OTHER ==
[~2018-02-18] VITALS: Ht 154.9 cm; Wt 84.5 kg
[~2018-02-18 14:14] MED LIST changes: +/ADVA50050; +/ATOR40TA; +/ATOR40TA OR; +/ESCI20TA; +/ESOM40CA; +/ESOM40CA OR; +/MOXI40TA; +ABIL10TA; +ABIL5TAB OR; +AMBI10TA; +AMMO12LO; +ASPI81TA85 PO; +ASTLIN; +ATARAX; +ATOR1TAB21 PO; +BENA25TA10 PO; +BREO1INH3 INH; +CALC600T57 PO; +CALCTAB75 PO; +CELE20TA PO; +CETI10CH PO; +CETI10TA; +CETI1SYP16 PO; +CETI5SOL2 PO; +CIPR-249 PO; +CITA20TA4 PO; +CLON1TAB; +CRES20TA OR; +DIAZ10TA2 PO; +DICY10CA13 PO; +DOXE100CA PO; +DOXE150C PO; +DOXY-350 PO; +ERYTHROMYCI1; +ESOM1CAP5 PO; +FERR324T2 PO; +FLEXERIL; +FLEXERIL OR; +FLEXERIL PO; +FLUC150T PO; +FLUTISP; +GABA-843 PO; +HYDR50TA8 OR; +HYDROXYZINE PAMOATE; +IBUP-1022 PO; +IBUP600T OR; +IBUP800T OR; +KLON1TAB OR; +LAMI25TA OR; +LAVAZA PO; -LIDOCAINE 2% INJ 100 MG/5 ML SDV (FOR ANES.) As Ordered; +LIPI20TA; +LIPI20TA PO; +LOPERAMIDE; +LYRI75CA OR; +MELO15TA28 PO; +METF500T13 PO; +METO5TAB2; +METO5TAB2 OR; +MIRA3350 PO; +MIRALEX; +MIRALEX PO; +MUCINEX; +MULTCAP PO; +NEUR300C PO; +NICO21DI5 TD; +OMEP40CA2 PO; +PATA0.2S OU; +PERC5TAB12 PO; +PHEN-501 PO; +PRED10TA2 PO; +PREG50CA; -PROPOFOL 200 MG/20 ML VIAL As Ordered; +QUET20XRTB; +QUET30TA; +RALO1TAB PO; +SERO200T; +SERO200T OR; +SERT100T; +SERT50TA2; +SILV1CRE60 TOP; +SILV40CR TOP; +SIME180C PO; +SING10TA31; +SING10TA31 OR; +SUCR1TA PO; +SYMB80AE IN; +SYST1SOL OU; +TEMA15CA2 PO; +TEMA7.5C PO; +TOPI100T; +TOPI50TA; +TRAZ100T; +TRAZ50TA; +TRAZ50TA OR; +ULTR50TA8 PO; +VALA500T4 PO; +VALI10TA PO; +VALT500T; +VANC250C2 PO; +VENTAER; +VENTAER IN; +VIST25CA; +VITAMIN D50000 UNT; +VITAMIN D50000 UNT OR; +ZOFR4TAB14 PO; +ZOLO100T; +ZOLO50TA; +ZOVI5OIN; +seroquel
[2018-02-18] MEDS ORDERED: ACETAMINOPHEN 325 MG TAB PO ONE (15:00)
--- NOTE | 2018-02-18 15:39 | REP ---
Clinical: Trauma. Fall. Technique: AP, lateral, bilateral oblique views of the right ankle. Findings: Mild soft tissue swelling. No acute fracture dislocation. Age-related changes are noted. Lateral view demonstrates moderate calcaneal heal spur. Impression: Mild soft tissue swelling and age-related degenerative change. No acute fracture or dislocation. Electronically Signed by Luis Chavez MD 02/18/2018 03:31 P
--- NOTE | 2018-02-18 15:40 | REP ---
Clinical: Trauma. Technique: AP, lateral, bilateral oblique and sunrise views right knee . Findings: The osseous structures and joint spaces are intact and demonstrate generalized age-related changes. There is no evidence for acute fracture or dislocation. No joint effusion is appreciated. Surrounding soft tissues are unremarkable. No subcutaneous emphysema or radiodense foreign body. Impression: Generalized age-related changes. No acute fracture or dislocation. Electronically Signed by Luis Chavez MD 02/18/2018 03:32 P
[2018-02-18 16:11] VITALS: BP 135/78
== END 2018-02-18 16:10 | disposition home or self-care (01) ==
LOC: M ED 14:14
DX: S83.91XA Sprain of unspecified site of right knee, initial encounter (principal); S93.401A Sprain of unspecified ligament of right ankle, initial encounter; W18.40XA Slipping, tripping and stumbling without falling, unspecified, initial encounter; Y92.410 Unspecified street and highway as the place of occurrence of the external cause; Y93.9 Activity, unspecified; Y99.9 Unspecified external cause status; E11.9 Type 2 diabetes mellitus without complications; I10 Essential (primary) hypertension; K57.30 Diverticulosis of large intestine without perforation or abscess without bleeding; J30.2 Other seasonal allergic rhinitis; F41.9 Anxiety disorder, unspecified; F32.9 Major depressive disorder, single episode, unspecified; Z72.0 Tobacco use; Z79.82 Long term (current) use of aspirin; Z79.84 Long term (current) use of oral hypoglycemic drugs; Z79.899 Other long term (current) drug therapy; Z88.8 Allergy status to other drugs, medicaments and biological substances; Z88.1 Allergy status to other antibiotic agents; Z88.0 Allergy status to penicillin; Z91.89 Other specified personal risk factors, not elsewhere classified; Z91.011 Allergy to milk products

== ENCOUNTER → 2018-03-01 | Outpatient (REF) | payer OTHER, MEDICAID ==
[~2018-03-01] MED LIST changes: -NICO21DI5 TD; +NICO21DI6 TD; -VALA500T4 PO; +VALA500T5 PO
[2018-03-01 19:35] LABS: BASO % 0.6 % (0.0-1.0); EOS # 0.1 10^3/uL (0.0-0.50); HEMATOCRIT 42.6 % (36.0-47.0); HEMOGLOBIN 14.1 g/dl (12.0-15.5); LYMPH # 2.6 10^3/uL (1.5-4.5); LYMPH % 40.2 % (24.0-44.0); MEAN CORPUSCULAR HEMOGLOBIN 29.6 pg (27.0-33.0); MEAN CORPUSCULAR HGB CONC 33.1 g/dl (32.0-36.5); MEAN CORPUSCULAR VOLUME 89.3 fl (80.0-96.0); MONO # 0.3 10^3/uL (0.0-0.8); MONO % 4.8 % (0.0-5.0); NEUTROPHILS # 3.4 10^3/uL (1.8-7.7); NEUTROPHILS % 52.1 % (36.0-66.0); PLATELET COUNT, AUTOMATED 277 10^3/uL (150-450); RED BLOOD COUNT 4.77 10^6/uL (4.00-5.40); WHITE BLOOD COUNT 6.4 10^3/uL (4.0-10.0)
[2018-03-01 19:45] LABS: ALT/SGPT 41 U/L (12-78); BILIRUBIN,TOTAL 0.7 MG/DL (0.2-1.0); BLOOD UREA NITROGEN 8 MG/DL (7-18); C REACTIVE PROTEIN QUANTITATIV < 0.30 MG/DL (0.00-0.30); CALCIUM LEVEL 9.5 MG/DL (8.5-10.1); CARBON DIOXIDE LEVEL 31 MEQ/L (21-32); CHLORIDE LEVEL 106 MEQ/L (98-107); CHOLESTEROL LEVEL 208 MG/DL (<200); CHOLESTEROL RISK RATIO 4.078 (<5); CREATININE FOR GFR 0.72 MG/DL (0.55-1.30); GLOMERULAR FILTRATION RATE > 60.0 (>51); GLUCOSE, FASTING 90 MG/DL (70-100); HDL CHOLESTEROL 51 MG/DL (>40); IRON (FE) 68 UG/DL (50-170); LDL CHOLESTEROL 122 MG/DL (<100); NON-HDL-C 157 MG/DL; POTASSIUM SERUM 4.4 MEQ/L (3.5-5.1); SODIUM LEVEL 141 MEQ/L (136-145); TRIGLYCERIDES LEVEL 176 MG/DL (<150)
[2018-03-01 19:49] LABS: TOTAL 25(OH) VITAMIN D 27.9 NG/ML (30.0-100.0)
[2018-03-01 19:53] LABS: HEMOGLOBIN A1c 6.5 %
[2018-03-01 20:33] LABS: ERYTHROCYTE SEDIMENTATION RATE 7 mm/hr (0-30)
== END ==
LOC: M LAB REF 18:51
PROVIDERS: ATTEND Nurse Practitioner Adult Health
DX: Z13.9 Encounter for screening, unspecified (principal)

== ENCOUNTER → 2018-03-06 | Outpatient (REF) | payer OTHER, MEDICAID ==
[2018-03-06 13:37] LABS: BASO % 0.6 % (0.0-1.0); EOS # 0.2 10^3/uL (0.0-0.50); EOS % 2.3 % (0.0-3.0); HEMATOCRIT 41.1 % (36.0-47.0); HEMOGLOBIN 13.5 g/dl (12.0-15.5); LYMPH # 2.5 10^3/uL (1.5-4.5); LYMPH % 37.8 % (24.0-44.0); MEAN CORPUSCULAR HEMOGLOBIN 29.2 pg (27.0-33.0); MEAN CORPUSCULAR HGB CONC 32.8 g/dl (32.0-36.5); MONO # 0.3 10^3/uL (0.0-0.8); MONO % 4.5 % (0.0-5.0); NEUTROPHILS # 3.6 10^3/uL (1.8-7.7); NEUTROPHILS % 54.6 % (36.0-66.0); PLATELET COUNT, AUTOMATED 224 10^3/uL (150-450); RED BLOOD COUNT 4.62 10^6/uL (4.00-5.40); WHITE BLOOD COUNT 6.5 10^3/uL (4.0-10.0)
[2018-03-06 13:46] LABS: ALBUMIN 3.8 GM/DL (3.2-5.2); ALT/SGPT 31 U/L (12-78); BILIRUBIN,TOTAL 0.4 MG/DL (0.2-1.0); BLOOD UREA NITROGEN 14 MG/DL (7-18); CALCIUM LEVEL 9.1 MG/DL (8.5-10.1); CARBON DIOXIDE LEVEL 28 MEQ/L (21-32); CHLORIDE LEVEL 107 MEQ/L (98-107); CREATININE FOR GFR 0.71 MG/DL (0.55-1.30); FOLATE 13.3 NG/ML; GLOMERULAR FILTRATION RATE > 60.0 (>51); GLUCOSE, FASTING 92 MG/DL (70-100); POTASSIUM SERUM 4.3 MEQ/L (3.5-5.1); RHEUMATOID FACTOR QUANT < 10.0 IU/ML (<15.0); SODIUM LEVEL 142 MEQ/L (136-145); TOTAL PROTEIN 6.5 GM/DL (6.4-8.2); VITAMIN B12 LEVEL 378 PG/ML
[2018-03-06 14:50] LABS: ERYTHROCYTE SEDIMENTATION RATE 9 mm/hr (0-30)
[2018-03-07 10:59] LABS: DRVV SCREEN 35.9 SEC
[2018-03-07 11:07] LABS: PTT LUPUS TYPE ANTICOAG SCREEN 0.9 (0-1.2)
[2018-03-07 13:00] LABS: ALBUMIN % 62.7 % (55.8-66.1)
[2018-03-07 13:01] LABS: ALBUMIN 4.08 GM/DL (3.29-5.55); ALPHA-1-GLOBULIN % 4.8 % (2.9-4.9); ALPHA-1-GLOBULINS 0.31 GM/DL (0.17-0.41); ALPHA-2-GLOBULINS % 12.3 % (7.1-11.8); BETA-1-GLOBULINS 0.47 GM/DL (0.28-0.60); BETA-1-GLOBULINS % 7.2 % (4.7-7.2); BETA-2-GLOBULINS 0.28 GM/DL (0.19-0.55); BETA-2-GLOBULINS % 4.3 % (3.2-6.5); GAMMA GLOBULIN % 8.7 % (11.1-18.8); GAMMA GLOBULINS 0.57 GM/DL (0.65-1.58)
[2018-03-10 00:06] LABS: ANCA-ATYPICAL <1:20 titer (Neg:<1:20); ANTI DOUBLE STRAND-DNA AB <1 IU/mL (0-9); ANTINUCLEAR ANTIBODIES DIRECT Negative (Negative); CERULOPLASMIN 33.7 mg/dL (19.0-39.0); COPPER PLASMA 147 ug/dL (72-166); CYTOPLASMIC NEUTROP AB ANCA-C <1:20 titer (Neg:<1:20); LEAD BLOOD ADULT <1 ug/dL (0-4); Lyme Disease IgG/IgM Antibodie <0.91 ISR (0.00-0.90); Lyme Disease IgM Ab Quantitati <0.80 index (0.00-0.79); MERCURY LEVEL None Detected ug/L (0.0-14.9); PERINUCLEAR AB ANCA-P <1:20 titer (Neg:<1:20); SJOGREN'S ANTI SS-A <0.2 AI (0.0-0.9); SJOGREN'S ANTI SS-B <0.2 AI (0.0-0.9); VITAMIN B1 LEVEL WHOLE BLOOD 143.8 nmol/L (66.5-200.0); VITAMIN E(ALPHA TOCOPHEROL) 15.5 mg/L (7.0-25.1); VITAMIN E(GAMMA TOCOPHEROL) 2.1 mg/L (0.5-5.5)
== END ==
LOC: M LABNEURO 08:44
PROVIDERS: ATTEND Psychiatry & Neurology Neurology
DX: G62.9 Polyneuropathy, unspecified (principal)

== ENCOUNTER → 2018-03-13 | Outpatient (CLI) | payer OTHER ==
[~2018-03-13] MED LIST changes: +LIDOCAINE 1% MDV 20ML VIAL As Ordered ONE
--- NOTE | 2018-03-13 14:06 | REP ---
CT LUMBAR SPINE WITHOUT CONTRAST: HISTORY: Back pain. There is no disc bulge or herniation at the L1-2 and L2-3 levels. The nerves exit the neural foramina without compression. A diffuse disc bulge is present at the L3-4 level. There is hypertrophy of the ligamentum flava and posterior articulating facets. These findings produce minimal central canal stenosis. The L3 nerves exit the neural foramina without compression. A diffuse disc bulge is present at the L4-5 level. There is hypertrophy of the ligamenta flava and posterior articulating facets. These findings produce minimal central canal stenosis. The L4 nerves exit the neural foramina without compression. A diffuse disc bulge is present at the L5-S1 level. There is minimal compression of the thecal sac. There is hypertrophy of the posterior articulating facets. There are 4 mm of grade I spondylolisthesis of L5 on S1. This is associated with L5 pars defects. There is compression of the L5 nerves in the neural foramina. The L3-4 to L5-S1 intervertebral discs are decreased in height. Vacuum phenomenon is present at the L5-S1 level. These findings are consistent with disc degeneration. IMPRESSION: 1. Minimal central canal stenosis at the L3-4 and L4-5 levels secondary to disc bulge, ligamentous and facet hypertrophy. 2. Diffuse disc bulge at the L5-S1 level with minimal thecal sac compression. There is grade 1 spondylolisthesis of L5 on S1 with associated L5 pars defects. There is compression of the L5 nerves in the neural foramina. Electronically Signed by Deon Simon MD 03/13/2018 02:11 P
== END ==
LOC: M RAD 08:48
PROVIDERS: ATTEND Psychiatry & Neurology Neurology
DX: M48.061 Spinal stenosis, lumbar region without neurogenic claudication (principal); M51.27 Other intervertebral disc displacement, lumbosacral region; G62.9 Polyneuropathy, unspecified

== ENCOUNTER 2018-03-23 17:53 | Emergency (ER) | payer OTHER ==
[~2018-03-23] VITALS: Ht 154.9 cm; Wt 81.8 kg
[~2018-03-23 17:53] MED LIST changes: -LIDOCAINE 1% MDV 20ML VIAL As Ordered ONE
[2018-03-23] MEDS ORDERED: NORCO, ANEXSIA 5/325MG TABLET (HYDROcodone/ACETAMINOPHEN) PO ONE (19:15)
--- NOTE | 2018-03-23 19:22 | REPVR ---
EXAM: CT Head Without Contrast EXAM DATE/TIME: 03/23/2018 6:11 PM CLINICAL HISTORY: 52 years old, female; Injury or trauma; Fall; Initial encounter; Blunt trauma (contusions or hematomas) TECHNIQUE: Axial computed tomography images of the head/brain without contrast. All CT scans at this facility use at least one of these dose optimization techniques: automated exposure control; mA and/or kV adjustment per patient size (includes targeted exams where dose is matched to clinical indication); or iterative reconstruction. COMPARISON: CT Head without contrast 09/05/2017 5:51 PM FINDINGS: Brain: Unremarkable. No hemorrhage. No significant white matter disease. No edema. Ventricles: Unremarkable. No ventriculomegaly. Bones/joints: Unremarkable. No acute fracture. Sinuses: Mucous retention cyst within the left maxillary sinus. No paranasal sinus fluid level. Mastoid air cells: Normal as visualized. No mastoid effusion. Soft tissues: Unremarkable. IMPRESSION: No acute abnormality. Electronically signed by: Pola Shafer On 03/23/2018 19:21:52 PM
--- NOTE | 2018-03-23 19:27 | REPVR ---
EXAM: CT Cervical Spine Without Contrast EXAM DATE/TIME: 03/23/2018 6:11 PM CLINICAL HISTORY: 52 years old, female; Injury or trauma; Fall; Initial encounter; Blunt trauma TECHNIQUE: Axial computed tomography images of the cervical spine without intravenous contrast. All CT scans at this facility use at least one of these dose optimization techniques: automated exposure control; mA and/or kV adjustment per patient size (includes targeted exams where dose is matched to clinical indication); or iterative reconstruction. Coronal and sagittal reformatted images were created and reviewed. COMPARISON: CT Spine,cervical w/o contrast 09/05/2017 5:51 PM FINDINGS: Tubes, catheters and devices: Status post posterior element partial excision with stimulator leads along the posterior thecal sac from the level of the C3-C4 disc space to the level of the C5-C6 disc space, unchanged. Vertebrae: Degenerative disc disease and facet arthrosis throughout the cervical spine. The findings are most severe at C5-C6 and C6-C7. Minimal anterolisthesis of C4, unchanged. No fracture. Discs/Spinal canal/Neural foramina: No high-grade bony spinal stenosis. Soft tissues: Unremarkable. Lungs: Lung apices are normal. IMPRESSION: No fracture or other acute interval change. Electronically signed by: Pola Shafer On 03/23/2018 19:27:01 PM
--- NOTE | 2018-03-23 21:54 | REP ---
Clinical: Trauma. Technique: AP, lateral, bilateral oblique views right wrist . Findings: The carpal bones, surrounding osseous structures, soft tissues, and joint spaces are normal. There is no evidence for acute fracture or dislocation. No subcutaneous emphysema or radiodense foreign body. Impression: Normal wrist series. No acute fracture or dislocation Electronically Signed by Luis Chavez MD 03/23/2018 09:45 P
--- NOTE | 2018-03-23 21:54 | REP ---
Clinical: Trauma . Technique: Internal rotation, external rotation, and Y view right shoulder . Findings: No acute fracture or dislocation. The acromioclavicular and glenohumeral joints are intact. No periarticular calcifications or degenerative changes are appreciated. Sub acromial space is normal. Surrounding soft tissues are unremarkable. Impression: Normal right shoulder radiographs. Electronically Signed by Luis Chavez MD 03/23/2018 09:46 P
[2018-03-23 22:54] VITALS: BP 134/88
== END 2018-03-23 23:00 | disposition home or self-care (01) ==
LOC: EDBD 17:53 → M ED 17:53
DX: S40.011A Contusion of right shoulder, initial encounter (principal); S63.501A Unspecified sprain of right wrist, initial encounter; S06.0X0A Concussion without loss of consciousness, initial encounter; W00.0XXA Fall on same level due to ice and snow, initial encounter; Y92.410 Unspecified street and highway as the place of occurrence of the external cause; Y93.K1 Activity, walking an animal; J45.909 Unspecified asthma, uncomplicated; E78.00 Pure hypercholesterolemia, unspecified; M51.9 Unspecified thoracic, thoracolumbar and lumbosacral intervertebral disc disorder; G90.50 Complex regional pain syndrome I, unspecified; Z79.899 Other long term (current) drug therapy; Z79.84 Long term (current) use of oral hypoglycemic drugs; Z79.82 Long term (current) use of aspirin; Z88.0 Allergy status to penicillin; Z88.1 Allergy status to other antibiotic agents; Z88.8 Allergy status to other drugs, medicaments and biological substances; Z91.011 Allergy to milk products

== ENCOUNTER → 2018-04-14 | Outpatient (REF) | payer OTHER ==
[2018-04-14 13:48] LABS: APPEARANCE, URINE HAZY (CLEAR); BACTERIA, URINE AUTO 2+ (NEGATIVE); BILIRUBIN, URINE AUTO NEGATIVE (NEGATIVE); BLOOD, URINE BLOOD NEGATIVE (NEGATIVE); COLOR, URINE YELLOW (YELLOW); GLUCOSE, URINE (UA) AUTO NEGATIVE (NEGATIVE); KETONE, URINE AUTO NEGATIVE (NEGATIVE); LEUKOCYTE ESTERASE, URINE AUTO NEGATIVE (NEGATIVE); MUCUS, URINE SMALL (NEGATIVE); NITRITE, URINE AUTO NEGATIVE (NEGATIVE); PROTEIN, URINE AUTO NEGATIVE (NEGATIVE); RBC, URINE AUTO 0 /HPF (0-3); SQUAMOUS EPITHELIAL CELL UR AU 18 /HPF (0-6); WBC, URINE AUTO 1 /HPF (0-3)
== END ==
LOC: M LAB REF 12:30
PROVIDERS: ATTEND Nurse Practitioner Adult Health
DX: R30.0 Dysuria (principal)

== ENCOUNTER → 2018-05-16 | Outpatient (CLI) | payer OTHER ==
--- NOTE | 2018-05-17 03:11 | REP ---
Clinical: Upper respiratory tract infection. Technique: PA and lateral. Comparison: 10/13/2017. Findings: Mediastinum and cardiac silhouette normal. Lung saldana demonstrate mild chronic-appearing changes. No acute consolidation, effusion, or pneumothorax. Neural stimulator extends to the cervical spine. Skeletal structures intact. Impression: Chronic-appearing changes. No obvious acute cardiopulmonary process. Electronically Signed by Luis Chavez MD 05/17/2018 03:03 A
== END ==
LOC: M RAD 10:34
PROVIDERS: ATTEND Nurse Practitioner Adult Health
DX: J06.9 Acute upper respiratory infection, unspecified (principal)

== ENCOUNTER → 2018-05-30 | Outpatient (REF) | payer OTHER ==
[~2018-05-30] MED LIST changes: -/ADVA50050; -/ATOR40TA; -/ATOR40TA OR; -/ESCI20TA; -/ESOM40CA; -/ESOM40CA OR; -/MOXI40TA; +ADVA1AER2; +AVEL1TAB2; +LEXA1TAB2; +LIPI1TAB2; +LIPI1TAB2 OR; +NEXI1CAP3; +NEXI1CAP3 OR; -QUET20XRTB; +SERO200T43
[2018-05-30 18:23] LABS: HEMOGLOBIN A1c 6.2 %
== END ==
LOC: M LAB REF 16:58
PROVIDERS: ATTEND Nurse Practitioner Adult Health
DX: E11.9 Type 2 diabetes mellitus without complications (principal); E55.9 Vitamin D deficiency, unspecified

== ENCOUNTER 2018-06-13 16:06 | Emergency (ER) | payer OTHER ==
[~2018-06-13] VITALS: Ht 154.9 cm; Wt 84.5 kg
[~2018-06-13 16:06] MED LIST changes: -CITA20TA4 PO; +CITA20TA6 PO; -VANC250C2 PO; +VANC250C3 PO
[2018-06-13] MEDS ORDERED: DOXY100C37 PO (17:21)
[2018-06-13] MEDS ORDERED: AZEL1SPR3 (17:21)
[2018-06-13] MEDS ORDERED: FLUT1INH3 (17:21)
[2018-06-13] MEDS ORDERED: RALO1TAB PO (17:21)
[2018-06-13] MEDS ORDERED: GABA-1171 PO (17:21)
[2018-06-13] MEDS ORDERED: CYCL10TA PO (17:34)
[2018-06-13 17:47] VITALS: BP 159/98
== END 2018-06-13 18:15 | disposition home or self-care (01) ==
LOC: M ED 16:06
DX: S46.811A Strain of other muscles, fascia and tendons at shoulder and upper arm level, right arm, initial encounter (principal); X58.XXXA Exposure to other specified factors, initial encounter; Y92.89 Other specified places as the place of occurrence of the external cause; E11.9 Type 2 diabetes mellitus without complications; I51.9 Heart disease, unspecified; G89.29 Other chronic pain; F17.200 Nicotine dependence, unspecified, uncomplicated; Z88.8 Allergy status to other drugs, medicaments and biological substances; Z88.1 Allergy status to other antibiotic agents; Z88.0 Allergy status to penicillin; Z91.011 Allergy to milk products; Z79.899 Other long term (current) drug therapy; Z79.82 Long term (current) use of aspirin; Z79.84 Long term (current) use of oral hypoglycemic drugs; Z79.51 Long term (current) use of inhaled steroids

== ENCOUNTER 2018-08-18 20:40 | Emergency (ER) | payer OTHER ==
[~2018-08-18] VITALS: Ht 154.9 cm; Wt 84.5 kg
[~2018-08-18 20:40] MED LIST changes: +AZEL1SPR3; +CYCL10TA PO; +DOXY100C37 PO; +FLUT1INH3; +GABA-1171 PO
[2018-08-18] MEDS ORDERED: KETOROLAC 60 MG/2 ML VIAL (J1885) IM ONE (23:15)
[2018-08-18 23:34] VITALS: BP 120/80
--- NOTE | 2018-08-19 09:06 | REP ---
Right wrist four views: Mineralization and joint spaces are normal. There is no fracture or dislocation. Suspect soft tissue edema dorsally. This should be confirmed clinically. There are no calcifications or foreign bodies. Impression: Probable soft tissue edema dorsally, confirm clinically. No fracture. Electronically Signed by Luis Manuel Padilla MD 08/19/2018 08:58 A
== END 2018-08-18 23:41 | disposition home or self-care (01) ==
LOC: M ED 20:40
DX: S60.211A Contusion of right wrist, initial encounter (principal); W22.8XXA Striking against or struck by other objects, initial encounter; Y92.810 Car as the place of occurrence of the external cause; I10 Essential (primary) hypertension; E11.9 Type 2 diabetes mellitus without complications; K21.9 Gastro-esophageal reflux disease without esophagitis; J44.9 Chronic obstructive pulmonary disease, unspecified; M54.9 Dorsalgia, unspecified; Z88.8 Allergy status to other drugs, medicaments and biological substances; Z88.0 Allergy status to penicillin; Z88.1 Allergy status to other antibiotic agents; Z79.899 Other long term (current) drug therapy; Z79.82 Long term (current) use of aspirin; Z79.84 Long term (current) use of oral hypoglycemic drugs; Z79.51 Long term (current) use of inhaled steroids
CPT/HCPCS: 73110; 96372; 99283; J1885

== ENCOUNTER → 2018-08-22 | Outpatient (REF) | payer OTHER ==
[2018-08-22 13:39] LABS: BASO % 0.7 % (0.0-1.0); EOS # 0.1 10^3/uL (0.0-0.50); EOS % 1.3 % (0.0-3.0); HEMATOCRIT 43.9 % (36.0-47.0); HEMOGLOBIN 14.4 g/dl (12.0-15.5); LYMPH # 2.5 10^3/uL (1.5-4.5); LYMPH % 41.7 % (24.0-44.0); MEAN CORPUSCULAR HEMOGLOBIN 31.2 pg (27.0-33.0); MEAN CORPUSCULAR HGB CONC 32.8 g/dl (32.0-36.5); MONO # 0.4 10^3/uL (0.0-0.8); MONO % 5.8 % (0.0-5.0); NEUTROPHILS % 50.2 % (36.0-66.0); PLATELET COUNT, AUTOMATED 235 10^3/uL (150-450); RED BLOOD COUNT 4.62 10^6/uL (4.00-5.40); WHITE BLOOD COUNT 6.1 10^3/uL (4.0-10.0)
== END ==
LOC: M LAB REF 12:47
PROVIDERS: ATTEND Internal Medicine Pulmonary Disease
DX: J45.40 Moderate persistent asthma, uncomplicated (principal)

== ENCOUNTER → 2018-09-20 | Outpatient (REF) | payer OTHER, MEDICAID ==
[2018-09-20 12:41] LABS: BASO % 0.7 % (0.0-1.0); EOS # 0.1 10^3/uL (0.0-0.50); EOS % 2.2 % (0.0-3.0); HEMATOCRIT 45.5 % (36.0-47.0); HEMOGLOBIN 15.1 g/dl (12.0-15.5); LYMPH # 2.7 10^3/uL (1.5-4.5); LYMPH % 44.9 % (24.0-44.0); MEAN CORPUSCULAR HEMOGLOBIN 31.3 pg (27.0-33.0); MEAN CORPUSCULAR HGB CONC 33.2 g/dl (32.0-36.5); MEAN CORPUSCULAR VOLUME 94.4 fl (80.0-96.0); MONO # 0.3 10^3/uL (0.0-0.8); MONO % 5.7 % (0.0-5.0); NEUTROPHILS # 2.8 10^3/uL (1.8-7.7); NEUTROPHILS % 46.2 % (36.0-66.0); PLATELET COUNT, AUTOMATED 241 10^3/uL (150-450); RED BLOOD COUNT 4.82 10^6/uL (4.00-5.40)
[2018-09-20 12:59] LABS: ALBUMIN 3.9 GM/DL (3.2-5.2); ALT/SGPT 34 U/L (12-78); BILIRUBIN,TOTAL 0.5 MG/DL (0.2-1.0); BLOOD UREA NITROGEN 12 MG/DL (7-18); CALCIUM LEVEL 9.4 MG/DL (8.5-10.1); CARBON DIOXIDE LEVEL 31 MEQ/L (21-32); CHLORIDE LEVEL 104 MEQ/L (98-107); CHOLESTEROL LEVEL 197 MG/DL (<200); CHOLESTEROL RISK RATIO 4.191 (<5); CREATININE FOR GFR 0.84 MG/DL (0.55-1.30); GLOMERULAR FILTRATION RATE > 60.0 (>51); GLUCOSE, FASTING 96 MG/DL (70-100); HDL CHOLESTEROL 47 MG/DL (>40); HEMOGLOBIN A1c 6.5 %; LDL CHOLESTEROL 104 MG/DL (<100); NON-HDL-C 150 MG/DL; POTASSIUM SERUM 4.7 MEQ/L (3.5-5.1); SODIUM LEVEL 139 MEQ/L (136-145); TOTAL 25(OH) VITAMIN D 21.1 NG/ML (30.0-100.0); TOTAL PROTEIN 6.9 GM/DL (6.4-8.2); TRIGLYCERIDES LEVEL 229 MG/DL (<150)
== END ==
LOC: M LAB REF 12:22
PROVIDERS: ATTEND Nurse Practitioner Adult Health
DX: E78.5 Hyperlipidemia, unspecified (principal); D64.9 Anemia, unspecified; E55.9 Vitamin D deficiency, unspecified

== ENCOUNTER 2018-10-23 17:13 | Emergency (ER) | payer MEDICAID, OTHER ==
[~2018-10-23] VITALS: Ht 154.9 cm; Wt 86.4 kg
[~2018-10-23 17:13] MED LIST changes: -OMEP40CA2 PO; +OMEP40CA97 PO
[2018-10-23 18:56] LABS: BASO # 0.1 10^3/uL (0.0-0.2); BASO % 0.5 % (0.0-1.0); EOS # 0.1 10^3/uL (0.0-0.50); EOS % 1.4 % (0.0-3.0); HEMATOCRIT 43.5 % (36.0-47.0); HEMOGLOBIN 14.8 g/dl (12.0-15.5); LYMPH % 43.4 % (24.0-44.0); MEAN CORPUSCULAR HEMOGLOBIN 30.6 pg (27.0-33.0); MEAN CORPUSCULAR VOLUME 90.1 fl (80.0-96.0); MONO # 0.4 10^3/uL (0.0-0.8); MONO % 4.5 % (0.0-5.0); NEUTROPHILS # 4.6 10^3/uL (1.8-7.7); NEUTROPHILS % 49.9 % (36.0-66.0); PLATELET COUNT, AUTOMATED 252 10^3/uL (150-450); RED BLOOD COUNT 4.83 10^6/uL (4.00-5.40); WHITE BLOOD COUNT 9.2 10^3/uL (4.0-10.0)
[2018-10-23 19:20] LABS: ALBUMIN 4.1 GM/DL (3.2-5.2); ALT/SGPT 26 U/L (12-78); BILIRUBIN,DIRECT 0.1 MG/DL (0.0-0.2); BILIRUBIN,TOTAL 0.6 MG/DL (0.2-1.0); BLOOD UREA NITROGEN 10 MG/DL (7-18); CALCIUM LEVEL 9.6 MG/DL (8.5-10.1); CARBON DIOXIDE LEVEL 29 MEQ/L (21-32); CHLORIDE LEVEL 107 MEQ/L (98-107); CREATININE FOR GFR 0.84 MG/DL (0.55-1.30); GLOMERULAR FILTRATION RATE > 60.0 (>51); GLUCOSE, FASTING 75 MG/DL (70-100); LIPASE 112 U/L (73-393); POTASSIUM SERUM 4.1 MEQ/L (3.5-5.1); SODIUM LEVEL 142 MEQ/L (136-145)
[2018-10-23] MEDS ORDERED: NS 1,000 ML IV ONE (20:30)
[2018-10-23] MEDS ORDERED: MORPHINE 4 MG/ML 1ML VIAL/SYRINGE (J2270) IV ONE ×2 (20:30→22:15)
[2018-10-23] MEDS ORDERED: METOCLOPRAMIDE INJ 10MG/2ML VIAL (J2765) IV ONE (20:30)
[2018-10-23] MEDS ORDERED: ISOVUE-370 76% 100ML VIAL (Q9967) As Ordered ONE (20:45)
--- NOTE | 2018-10-23 22:09 | REPVR ---
EXAM: CT Abdomen and Pelvis With Contrast EXAM DATE/TIME: 10/23/18 (9:00pm) CLINICAL HISTORY: 52 year old female with right flank pain. (+) psoas. TECHNIQUE: Imaging protocol: Computed tomography images of the abdomen and pelvis with intravenous contrast. Radiation optimization: All CT scans at this facility use at least one of these dose optimization techniques: automated exposure control; mA and/or kV adjustment per patient size (includes targeted exams where dose is matched to clinical indication); or iterative reconstruction. Contrast material: Isovue 370 Contrast volume: 100 ml Contrast route: IV COMPARISON: CT ABDOMEN PELVIS of 10/13/17 FINDINGS: Liver: No solid mass. Diffuse fatty infiltration. Gallbladder and bile ducts: Normal. No calcified stones. No ductal dilatation. Pancreas: Normal. No ductal dilatation. Spleen: Normal. No splenomegaly. Adrenals: Normal. No mass. Kidneys and ureters: Normal. No hydronephrosis. Stomach and bowel: No bowel obstruction. No mucosal thickening. Scattered sigmoid diverticuli. Appendix: A normal appendix is visualized. Intraperitoneal space: Normal. No free air. No significant fluid collection. Vasculature: Normal. No abdominal aortic aneurysm. Lymph nodes: Normal. No enlarged lymph nodes. Bladder: Unremarkable as visualized. Reproductive: Perhaps previous hysterectomy. Bones/joints: No acute fracture nor dislocation. Bilateral L5 pars defects again seen. Stable anterolisthesis of L5 on S1 (unchanged). Soft tissues: Unremarkable. Other findings: Portions of a spinal neurostimulation device are again seen. IMPRESSION: No acute findings. In general, similar findings were noted in 2017. Electronically signed by: Agnieszka Dutta On 10/23/2018 22:09:46 PM
[2018-10-23] MEDS ORDERED: DICYCLOMINE 10 MG CAP PO ONE (22:15)
[2018-10-23 23:01] VITALS: BP 151/78
== END 2018-10-23 23:29 | disposition home or self-care (01) ==
LOC: M ED 17:13
DX: R10.11 Right upper quadrant pain (principal); R10.31 Right lower quadrant pain; R11.2 Nausea with vomiting, unspecified; E11.9 Type 2 diabetes mellitus without complications; I10 Essential (primary) hypertension; E78.5 Hyperlipidemia, unspecified; J45.909 Unspecified asthma, uncomplicated; Z72.0 Tobacco use; Z79.82 Long term (current) use of aspirin; Z79.84 Long term (current) use of oral hypoglycemic drugs; Z79.899 Other long term (current) drug therapy; Z91.89 Other specified personal risk factors, not elsewhere classified; Z88.1 Allergy status to other antibiotic agents; Z88.8 Allergy status to other drugs, medicaments and biological substances; Z88.0 Allergy status to penicillin
CPT/HCPCS: 36415; 74177; 80048; 80076; 81001; 83690; 85025; 96361; 96374; 96375; 96376; 99284; J2270; J2765; Q9967

== ENCOUNTER 2018-10-29 21:41 | Emergency (ER) | payer OTHER ==
[~2018-10-29] VITALS: Ht 162.6 cm; Wt 127.3 kg
[~2018-10-29 21:41] MED LIST changes: +OMEP40CA2 PO; -OMEP40CA97 PO
[2018-10-29 22:14] LABS: BASO % 0.7 % (0.0-1.0); EOS # 0.1 10^3/uL (0.0-0.5); EOS % 2.3 % (0.0-3.0); HEMATOCRIT 39.3 % (36.0-47.0); HEMOGLOBIN 13.4 g/dl (12.0-15.5); LYMPH # 3.1 10^3/uL (1.5-5.0); LYMPH % 54.2 % (24.0-44.0); MEAN CORPUSCULAR HEMOGLOBIN 30.9 pg (27.0-33.0); MEAN CORPUSCULAR HGB CONC 34.1 g/dl (32.0-36.5); MEAN CORPUSCULAR VOLUME 90.6 fl (80.0-96.0); MONO # 0.3 10^3/uL (0.0-0.8); MONO % 5.4 % (0.0-5.0); NEUTROPHILS # 2.1 10^3/uL (1.5-8.5); NEUTROPHILS % 37.1 % (36.0-66.0); PLATELET COUNT, AUTOMATED 206 10^3/uL (150-450); RED BLOOD COUNT 4.34 10^6/uL (4.00-5.40); WHITE BLOOD COUNT 5.7 10^3/uL (4.0-10.0)
[2018-10-29] MEDS ORDERED: NS 1,000 ML IV ONE (22:15)
[2018-10-29 22:25] LABS: INR 0.94; PARTIAL THROMBOPLASTIN TIME 26.5 SECONDS (25.0-38.4); PROTHROMBIN TIME 12.3 SECONDS (11.8-14.0)
[2018-10-29 22:40] LABS: ACETAMINOPHEN LEVEL < 2.0 UG/ML (10.0-30.0); ALBUMIN 3.3 GM/DL (3.2-5.2); ALT/SGPT 24 U/L (12-78); BILIRUBIN,DIRECT < 0.1 MG/DL (0.0-0.2); BILIRUBIN,TOTAL 0.2 MG/DL (0.2-1.0); BLOOD UREA NITROGEN 9 MG/DL (7-18); CALCIUM LEVEL 8.9 MG/DL (8.5-10.1); CARBON DIOXIDE LEVEL 28 MEQ/L (21-32); CHLORIDE LEVEL 110 MEQ/L (98-107); CK-MB VALUE MASS 1.4 NG/ML (<3.6); CPK CREATINE PHOSPHOKINASE 102 U/L (26-192); CREATININE FOR GFR 0.72 MG/DL (0.55-1.30); ETHYL ALCOHOL (ETHANOL) < 0.003 % (0.000-0.010); GLOMERULAR FILTRATION RATE > 60.0 (>51); GLUCOSE, FASTING 127 MG/DL (70-100); LIPASE 149 U/L (73-393); MB/CK RELATIVE INDEX 1.37 (< OR =4); POTASSIUM SERUM 3.4 MEQ/L (3.5-5.1); SALICYLATE LEVEL 2.9 MG/DL (5.0-30.0); SODIUM LEVEL 145 MEQ/L (136-145); TOTAL PROTEIN 6.2 GM/DL (6.4-8.2); TROPONIN I < 0.02 NG/ML (< 0.10)
[2018-10-29 23:06] LABS: APPEARANCE, URINE CLEAR (CLEAR); BACTERIA, URINE AUTO NEGATIVE (NEGATIVE); BILIRUBIN, URINE AUTO NEGATIVE (NEGATIVE); BLOOD, URINE BLOOD NEGATIVE (NEGATIVE); CALCIUM OXALATE CRYSTALS SMALL; COLOR, URINE YELLOW (YELLOW); GLUCOSE, URINE (UA) AUTO NEGATIVE (NEGATIVE); KETONE, URINE AUTO NEGATIVE (NEGATIVE); LEUKOCYTE ESTERASE, URINE AUTO NEGATIVE (NEGATIVE); NITRITE, URINE AUTO NEGATIVE (NEGATIVE); PROTEIN, URINE AUTO NEGATIVE (NEGATIVE); RBC, URINE AUTO 3 /HPF (0-3); SPECIFIC GRAVITY URINE AUTO 1.009 (1.002-1.035); SQUAMOUS EPITHELIAL CELL UR AU 2 /HPF (0-6); UROBILINOGEN, URINE AUTO 0.2 mg/dL (0.0-2.0); WBC, URINE AUTO 3 /HPF (0-3)
[2018-10-29 23:39] LABS: AMPHETAMINES LEVEL URINE NEGATIVE (NEGATIVE); BARBITURATES URINE NEGATIVE (NEGATIVE); BENZODIAZEPINES URINE POSITIVE (NEGATIVE); CANNABINOIDS URINE NEGATIVE (NEGATIVE); COCAINE METABOLITE URINE NEGATIVE (NEGATIVE); METHADONE URINE NEGATIVE (NEGATIVE); OPIATES URINE NEGATIVE (NEGATIVE); PHENCYCLIDINE URINE NEGATIVE (NEGATIVE)
[2018-10-29] MEDS ORDERED: ISOVUE-370 76% 100ML VIAL (Q9967) As Ordered ONE (23:44)
--- NOTE | 2018-10-30 00:34 | REPVR ---
EXAM: CT Abdomen and Pelvis With Contrast EXAM DATE/TIME: 10/29/2018 12:06 AM CLINICAL HISTORY: 52 years old, female; Abdominal pain; Generalized TECHNIQUE: Imaging protocol: Computed tomography of the abdomen and pelvis with intravenous contrast. Radiation optimization: All CT scans at this facility use at least one of these dose optimization techniques: automated exposure control; mA and/or kV adjustment per patient size (includes targeted exams where dose is matched to clinical indication); or iterative reconstruction. Contrast material: ISOVUE 370; Contrast volume: 100 ml; Contrast route: IV; COMPARISON: CT ABD/PEL W/IV CONTRAST ONLY 10/23/2018 8:59 PM FINDINGS: Liver: Liver appears normal with no focal abnormality. Gallbladder and bile ducts: Gallbladder is present and shows no evidence of gallstone. Pancreas: Pancreas appears normal. No focal mass or peripancreatic inflammation. Spleen: Spleen appears homogeneous without focal mass. Adrenals: Adrenal glands are normal in appearance. Kidneys and ureters: Kidneys appear normal, with no stone, solid mass or hydronephrosis. Stomach and bowel: No evidence of small bowel obstruction. Sparse colonic diverticula are present without evidence of inflammation. Appendix: Normal caliber appendix is identified, with no adjacent inflammation. Intraperitoneal space: No pneumoperitoneum. Vasculature: Main portal and splenic veins enhance normally. Atherosclerotic change present in the aorta, without aneurysm. Lymph nodes: No enlarged lymph nodes. No enlarged lymph nodes. Bladder: Bladder appears normal. Reproductive: Uterus is surgically absent. Bones/joints: Bony structures show no acute fracture or destructive process. Chronic appearing L5 pars inter-articularis defects are present. IMPRESSION: 1. No acute or concerning focal abdominal or pelvic process to explain diffuse abdominal pain. 2. Scattered colonic diverticular changes without active inflammation Electronically signed by: Kane Herrmann On 10/30/2018 00:33:44 AM
--- NOTE | 2018-10-30 00:37 | REPVR ---
EXAM: CT Chest With Contrast EXAM DATE/TIME: 10/29/2018 12:06 AM CLINICAL HISTORY: 52 years old, female; Pain TECHNIQUE: Imaging protocol: Computed tomography of the chest with intravenous contrast. Radiation optimization: All CT scans at this facility use at least one of these dose optimization techniques: automated exposure control; mA and/or kV adjustment per patient size (includes targeted exams where dose is matched to clinical indication); or iterative reconstruction. Contrast material: ISOVUE 370; Contrast volume: 100 ml; Contrast route: IV COMPARISON: CT ANGIO CHEST 10/13/2017 6:18 PM FINDINGS: No thoracic aortic aneurysm or dissection. Central pulmonary arteries show no intraluminal defect suggestive of clot. No enlarged mediastinal lymph nodes. No pleural effusion or pneumothorax. Pulmonary vascular/interstitial pattern does not suggest active pulmonary edema. No suspicious lung mass or air space process. No central endobronchial lesion. Bony structures show no acute fracture or destructive process. IMPRESSION: No acute or concerning focal thoracic abnormality Electronically signed by: Kane Herrmann On 10/30/2018 00:36:58 AM
[2018-10-30 01:01] VITALS: BP 134/72
[2018-10-30] MEDS ORDERED: KETOROLAC 30 MG/ML VIAL (J1885) IV ONE (01:15)
--- NOTE | 2018-10-30 06:40 | ECGEPIP ---
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
== END 2018-10-30 01:29 | disposition home or self-care (01) ==
LOC: M ED 21:41
DX: R10.9 Unspecified abdominal pain (principal); E11.9 Type 2 diabetes mellitus without complications; K21.9 Gastro-esophageal reflux disease without esophagitis; M19.90 Unspecified osteoarthritis, unspecified site; E78.5 Hyperlipidemia, unspecified; J45.909 Unspecified asthma, uncomplicated; Z88.8 Allergy status to other drugs, medicaments and biological substances; Z88.0 Allergy status to penicillin; Z88.1 Allergy status to other antibiotic agents; Z79.899 Other long term (current) drug therapy; Z79.82 Long term (current) use of aspirin; Z79.84 Long term (current) use of oral hypoglycemic drugs
CPT/HCPCS: 71260; 74177; 80048; 80076; 80307; 81001; 82140; 82550; 82553; 83605; 83690; 85025; 85610; 85730; 87040; 87086; 93005; 96374; 99284; G0480; J1885; Q9967

== ENCOUNTER 2018-11-12 18:24 | Emergency (ER) | payer OTHER ==
[~2018-11-12] VITALS: Ht 154.9 cm; Wt 84.1 kg
[2018-11-12] MEDS ORDERED: ISOVUE-370 76% 100ML VIAL (Q9967) As Ordered ONE (18:52)
[2018-11-12] MEDS ORDERED: MELO7.5T35 PO (18:55)
[2018-11-12] MEDS ORDERED: DULO1CAP6 PO (18:55)
[2018-11-12 19:00] LABS: BASO % 0.6 % (0.0-1.0); EOS # 0.1 10^3/uL (0.0-0.5); EOS % 2.1 % (0.0-3.0); HEMATOCRIT 40.9 % (36.0-47.0); LYMPH # 2.8 10^3/uL (1.5-5.0); LYMPH % 45.9 % (24.0-44.0); MEAN CORPUSCULAR HEMOGLOBIN 31.9 pg (27.0-33.0); MEAN CORPUSCULAR HGB CONC 34.2 g/dl (32.0-36.5); MEAN CORPUSCULAR VOLUME 93.2 fl (80.0-96.0); MONO # 0.3 10^3/uL (0.0-0.8); MONO % 5.2 % (0.0-5.0); NEUTROPHILS # 2.8 10^3/uL (1.5-8.5); NEUTROPHILS % 45.9 % (36.0-66.0); PLATELET COUNT, AUTOMATED 212 10^3/uL (150-450); RED BLOOD COUNT 4.39 10^6/uL (4.00-5.40); WHITE BLOOD COUNT 6.2 10^3/uL (4.0-10.0)
[2018-11-12 19:14] LABS: INR 0.91; PARTIAL THROMBOPLASTIN TIME 25.8 SECONDS (25.0-38.4)
[2018-11-12 19:24] LABS: ALBUMIN 3.6 GM/DL (3.2-5.2); ALT/SGPT 27 U/L (12-78); BILIRUBIN,DIRECT < 0.1 MG/DL (0.0-0.2); BILIRUBIN,TOTAL 0.4 MG/DL (0.2-1.0); CK-MB VALUE MASS < 1.0 NG/ML (<3.6); CPK CREATINE PHOSPHOKINASE 74 U/L (26-192); MB/CK RELATIVE INDEX 1.35 (< OR =4); TOTAL PROTEIN 6.4 GM/DL (6.4-8.2); TROPONIN I < 0.02 NG/ML (< 0.10)
[2018-11-12] MEDS ORDERED: ONDANSETRON 4MG/2ML VIAL (J2405) IV ONE (19:45)
[2018-11-12] MEDS: MORPHINE 4 MG/ML 1ML VIAL/SYRINGE (J2270) IV PRN ×2 (19:47→20:17)
--- NOTE | 2018-11-12 20:05 | REPVR ---
EXAM: CT Cervical Spine Without Contrast EXAM DATE/TIME: 11/12/2018 7:03 PM CLINICAL HISTORY: 52 years old, female; Pain; Other: Fall, tr; Additional info: Trauma TECHNIQUE: Imaging protocol: Computed tomography images of the cervical spine without contrast. Radiation optimization: All CT scans at this facility use at least one of these dose optimization techniques: automated exposure control; mA and/or kV adjustment per patient size (includes targeted exams where dose is matched to clinical indication); or iterative reconstruction. COMPARISON: CT Spine,cervical w/o contrast 03/23/2018 6:17 PM FINDINGS: Vertebrae: Status post laminectomies at C3-C5. An electrode extends into the laminectomy defect posterior to C4 and C5. Discs/Spinal canal/Neural foramina: There are some paracentral osteophytes, primarily C5-C7 and minimal or early degenerative changes at several apophyseal joints. There is no significant spinal or foraminal stenosis and little change from the prior study. Soft tissues: Unremarkable. Lungs: Lung apices are normal. IMPRESSION: 1. There has been little change from 03/23/2018. No acute interval fracture or subluxation is identified. 2. Postsurgical changes and multilevel degenerative changes with no significant spinal or foraminal stenosis. Electronically signed by: Adrian Davis On 11/12/2018 20:04:53 PM
--- NOTE | 2018-11-12 20:07 | REPVR ---
EXAM: CT Head Without Contrast EXAM DATE/TIME: 11/12/2018 7:03 PM CLINICAL HISTORY: 52 years old, female; Pain; Other: Fall, tr; Additional info: Trauma TECHNIQUE: Imaging protocol: Computed tomography of the head without contrast. Radiation optimization: All CT scans at this facility use at least one of these dose optimization techniques: automated exposure control; mA and/or kV adjustment per patient size (includes targeted exams where dose is matched to clinical indication); or iterative reconstruction. COMPARISON: CT Head without contrast 03/23/2018 6:17 PM FINDINGS: Brain: Normal. No hemorrhage. Unremarkable white matter. No mass effect. Ventricles: Normal. No ventriculomegaly. Bones/joints: Unremarkable. No acute fracture. Sinuses: Minimal left ethmoid sinus mucosal thickening. Mastoid air cells: Visualized mastoid air cells are well aerated. Soft tissues: Unremarkable. IMPRESSION: 1. There has been no change from 03/23/2018. No acute interval process is identified. 2. Minimal left ethmoid sinus disease. Electronically signed by: Adrian Davis On 11/12/2018 20:07:26 PM
--- NOTE | 2018-11-12 20:13 | REPVR ---
EXAM: CT Chest With Contrast EXAM DATE/TIME: 11/12/2018 7:03 PM CLINICAL HISTORY: 52 years old, female; Pain; Other: Fall, tr; Additional info: Trauma TECHNIQUE: Imaging protocol: Computed tomography of the chest with intravenous contrast. Radiation optimization: All CT scans at this facility use at least one of these dose optimization techniques: automated exposure control; mA and/or kV adjustment per patient size (includes targeted exams where dose is matched to clinical indication); or iterative reconstruction. Contrast material: ISOVUE 370; Contrast volume: 100 ml; Contrast route: IV; COMPARISON: CT Chest with contrast 10/30/2018 12:05 AM FINDINGS: Lungs: Minimal dependent atelectasis. Pleural space: Unremarkable. No pneumothorax. No pleural effusion. Heart: Unremarkable. No cardiomegaly. No pericardial effusion. Aorta: Unremarkable. No aortic aneurysm. The ascending thoracic aorta measures 30 mm. Lymph nodes: Unremarkable. No enlarged lymph nodes. Bones/joints: Unremarkable. No acute fracture. Soft tissues: Unremarkable. Liver: The liver attenuation is 75 Hounsfield units and the spleen is 103 Hounsfield units. IMPRESSION: There has been little change from 10/30/2018. No acute interval posttraumatic change is seen. Electronically signed by: Adrian Davis On 11/12/2018 20:12:46 PM
--- NOTE | 2018-11-12 20:17 | REPVR ---
EXAM: CT Thoracic Spine Without Contrast EXAM DATE/TIME: 11/12/2018 7:03 PM CLINICAL HISTORY: 52 years old, female; Pain; Other: Fall, tr; Additional info: Trauma TECHNIQUE: Imaging protocol: Computed tomography images of the thoracic spine without contrast. Radiation optimization: All CT scans at this facility use at least one of these dose optimization techniques: automated exposure control; mA and/or kV adjustment per patient size (includes targeted exams where dose is matched to clinical indication); or iterative reconstruction. COMPARISON: No relevant prior studies available. FINDINGS: Vertebrae: Minimal thoracic dextroscoliosis. Minimal mild anterior spurring throughout, greatest in the lower thoracic region. Discs/Spinal canal/Neural foramina: Degenerative changes of a right apophyseal joint with mild narrowing of the right neural foramen at T4-T5. Otherwise, no significant spinal or foraminal stenosis. Soft tissues: Subcutaneous electrode wire in the right back. IMPRESSION: 1. Mild degenerative changes with mild narrowing of the right neural foramen at T4-T5. Otherwise, no spinal or foraminal stenosis. 2. Otherwise negative CT thoracic spine. No acute fracture or subluxation. Electronically signed by: Adrian Davis On 11/12/2018 20:17:06 PM
--- NOTE | 2018-11-12 20:23 | REPVR ---
EXAM: CT Abdomen and Pelvis With Contrast EXAM DATE/TIME: 11/12/2018 7:03 PM CLINICAL HISTORY: 52 years old, female; Pain; Other: Fall, tr; Additional info: Trauma TECHNIQUE: Imaging protocol: Computed tomography of the abdomen and pelvis with intravenous contrast. Radiation optimization: All CT scans at this facility use at least one of these dose optimization techniques: automated exposure control; mA and/or kV adjustment per patient size (includes targeted exams where dose is matched to clinical indication); or iterative reconstruction. Contrast material: ISOVUE 370; Contrast volume: 100 ml; Contrast route: IV; COMPARISON: CT ABD/PEL W/IV CONTRAST ONLY 10/30/2018 12:05 AM FINDINGS: Liver: The liver and spleen are intact. No perihepatic or perisplenic fluid collections are identified. The liver attenuation is 77 Hounsfield units and the spleen is 101 Hounsfield units. Gallbladder and bile ducts: Normal. No calcified stones. No ductal dilation. Pancreas: Normal. No ductal dilation. Spleen: Normal. No splenomegaly. Adrenals: Normal. No mass. Kidneys and ureters: Normal. No hydronephrosis. Stomach and bowel: Minimal sigmoid diverticulosis without diverticulitis. Appendix: A normal appendix is seen. Intraperitoneal space: Unremarkable. No free air. No significant fluid collection. Vasculature: Unremarkable. No abdominal aortic aneurysm. Lymph nodes: Unremarkable. No enlarged lymph nodes. Bladder: Unremarkable as visualized. Reproductive: Status post hysterectomy. Bones/joints: Bilateral spondylolysis of L5 with grade 1 anterolisthesis relative to S1. Minimal degenerative spurring anteriorly in the lumbar spine. Soft tissues: Minimal fat filled umbilical hernia. IMPRESSION: 1. There has been little change from 10/30/2018. No acute posttraumatic change is seen. 2. Bilateral spondylolysis of L5 with anterolisthesis. 3. Minimal sigmoid diverticulosis without diverticulitis. 4. Status post hysterectomy. Electronically signed by: Adrian Davis On 11/12/2018 20:23:09 PM
--- NOTE | 2018-11-12 20:28 | REPVR ---
EXAM: CT Lumbar Spine Without Contrast EXAM DATE/TIME: 11/12/2018 7:03 PM CLINICAL HISTORY: 52 years old, female; Pain; Other: Fall, tr; Additional info: Trauma TECHNIQUE: Imaging protocol: Computed tomography images of the lumbar spine without contrast. Radiation optimization: All CT scans at this facility use at least one of these dose optimization techniques: automated exposure control; mA and/or kV adjustment per patient size (includes targeted exams where dose is matched to clinical indication); or iterative reconstruction. COMPARISON: No relevant prior studies available. FINDINGS: Vertebrae: Bilateral spondylolysis of L5 with grade one anterior listhesis. Minimal anterior spurring. No acute fracture or compression. Discs/Spinal canal/Neural foramina: Mild interspace narrowing at L3-L4 with loss of posterior concavity. There is mild facet arthropathy with low normal size of the neural foramen. No spinal stenosis. Degenerative disc change at L5-S1 with vacuum phenomenon and mild left and borderline right neural foraminal stenosis. Soft tissues: Unremarkable. IMPRESSION: 1. Bilateral spondylolysis of L5 with grade 1 anterolisthesis. There is degenerative disc change and interspace narrowing with some encroachment of the neural foramen with mild left and borderline right neural foraminal stenosis. 2. Mild degenerative changes with no additional spinal or foraminal stenosis. 3. No acute fracture or subluxation. Electronically signed by: Adrian Davis On 11/12/2018 20:27:55 PM
--- NOTE | 2018-11-12 20:30 | REPVR ---
EXAM: CT Left Lower Extremity Without Contrast, Hip EXAM DATE/TIME: 11/12/2018 7:03 PM CLINICAL HISTORY: 52 years old, female; Pain; Hip; Left; Additional info: Trauma TECHNIQUE: Imaging protocol: CT of the Left lower extremity without contrast was performed. Exam focused on the hip. Radiation optimization: All CT scans at this facility use at least one of these dose optimization techniques: automated exposure control; mA and/or kV adjustment per patient size (includes targeted exams where dose is matched to clinical indication); or iterative reconstruction. COMPARISON: CT ABD/PEL W/IV CONTRAST ONLY 10/30/2018 12:05 AM FINDINGS: Bones/joints: No fracture. Bilateral spondylolysis of L5 with grade one anterior listhesis. Soft tissues: The surrounding soft tissues are within normal limits. Reproductive: Status post hysterectomy. IMPRESSION: 1. Status post hysterectomy. 2. Bilateral spondylolysis of L5 with anterior listhesis. 3. Otherwise negative CT left hip. No fracture. Electronically signed by: Adrian Davis On 11/12/2018 20:30:00 PM
[2018-11-12] MEDS ORDERED: ACETAMINOPHEN TAB 650MG DOSE (2X325MG) PO ONE (22:45)
[2018-11-12 23:01] VITALS: BP 151/99
--- NOTE | 2018-11-13 06:06 | REP ---
Clinical: Trauma. Technique: AP, lateral, bilateral oblique views left wrist . Findings: The carpal bones, surrounding osseous structures, soft tissues, and joint spaces are normal. There is no evidence for acute fracture or dislocation. No subcutaneous emphysema or radiodense foreign body. Impression: No acute fracture or dislocation Electronically Signed by Luis Chavez MD 11/13/2018 05:58 A
--- NOTE | 2018-11-13 06:06 | REP ---
Clinical: Trauma. Technique: AP, lateral, bilateral oblique views left hand . Findings: The osseous structures and joint spaces are intact and normal. There is no evidence for acute fracture or dislocation. Surrounding soft tissues are unremarkable. No subcutaneous emphysema or radiodense foreign body. Impression: Age-appropriate left hand series . No acute fracture or dislocation. Electronically Signed by Luis Chavez MD 11/13/2018 05:57 A
--- NOTE | 2018-11-13 06:07 | REP ---
Clinical: Trauma. Technique: AP and lateral views of the left humerus. Findings: No acute fracture or dislocation. Skeletal structures, joint spaces, and surrounding soft tissues appear normal. No subcutaneous emphysema or radiodense foreign body. Impression: No acute fracture or dislocation. Electronically Signed by Luis Chavez MD 11/13/2018 05:59 A
--- NOTE | 2018-11-13 06:07 | REP ---
Clinical: Trauma. Technique: AP, lateral, bilateral oblique views left foot . Findings: The osseous structures and joint spaces are intact and normal. There is no evidence for acute fracture or dislocation. Surrounding soft tissues are unremarkable. No subcutaneous emphysema or radiodense foreign body. Impression: Age-appropriate left foot series . No acute fracture or dislocation. Electronically Signed by Luis Chavez MD 11/13/2018 05:59 A
--- NOTE | 2018-11-13 06:08 | REP ---
Clinical: Trauma . Technique: AP, lateral, bilateral oblique views left ankle . Findings: No acute fracture or dislocation. Skeletal structures and joint spaces are intact and normal. Ankle mortise appears stable. No subcutaneous emphysema or radiodense foreign body. Impression: Normal age-appropriate left ankle radiograph series. No acute fracture or dislocation. Electronically Signed by Luis Chavez MD 11/13/2018 06:00 A
--- NOTE | 2018-11-14 04:28 | ECGEPIP ---
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
== END 2018-11-12 23:35 | disposition home or self-care (01) ==
LOC: M ED 18:24 → EDBD 18:24 → M ED 23:35
DX: S93.402A Sprain of unspecified ligament of left ankle, initial encounter (principal); M25.552 Pain in left hip; M79.602 Pain in left arm; M79.605 Pain in left leg; W10.8XXA Fall (on) (from) other stairs and steps, initial encounter; Y92.098 Other place in other non-institutional residence as the place of occurrence of the external cause; Y93.01 Activity, walking, marching and hiking; Y99.8 Other external cause status; I10 Essential (primary) hypertension; E78.9 Disorder of lipoprotein metabolism, unspecified; E11.9 Type 2 diabetes mellitus without complications; F17.210 Nicotine dependence, cigarettes, uncomplicated; Z88.8 Allergy status to other drugs, medicaments and biological substances; Z88.0 Allergy status to penicillin; Z88.1 Allergy status to other antibiotic agents; Z79.899 Other long term (current) drug therapy; Z79.82 Long term (current) use of aspirin; Z79.84 Long term (current) use of oral hypoglycemic drugs; Z79.2 Long term (current) use of antibiotics
CPT/HCPCS: 70450; 71260; 72125; 72128; 72131; 73060; 73110; 73130; 73610; 73630; 73700; 74177; 80047; 80076; 82550; 82553; 85025; 85610; 85730; 93005; 93041; 94760; 96374; 96375; 96376; 99285; J2270; J2405; Q9967

== ENCOUNTER → 2018-11-28 | Outpatient (REF) | payer OTHER ==
[~2018-11-28] MED LIST changes: +DULO1CAP6 PO; +LISI10TA4 PO; +MELO7.5T35 PO; +NYST50SS TOP
[2018-11-28 13:06] LABS: APPEARANCE, URINE CLEAR (CLEAR); BACTERIA, URINE AUTO NEGATIVE (NEGATIVE); BILIRUBIN, URINE AUTO NEGATIVE (NEGATIVE); BLOOD, URINE BLOOD NEGATIVE (NEGATIVE); COLOR, URINE YELLOW (YELLOW); GLUCOSE, URINE (UA) AUTO NEGATIVE (NEGATIVE); KETONE, URINE AUTO NEGATIVE (NEGATIVE); LEUKOCYTE ESTERASE, URINE AUTO NEGATIVE (NEGATIVE); NITRITE, URINE AUTO NEGATIVE (NEGATIVE); PROTEIN, URINE AUTO NEGATIVE (NEGATIVE); RBC, URINE AUTO 0 /HPF (0-3); SQUAMOUS EPITHELIAL CELL UR AU 0 /HPF (0-6); UROBILINOGEN, URINE AUTO 0.2 mg/dL (0.0-2.0); WBC, URINE AUTO 1 /HPF (0-3)
[2018-11-28 15:00] LABS: CHLAMYDIA DNA AMPLIFICATION NEGATIVE (NEGATIVE); GC DNA AMPLIFICATION NEGATIVE (NEGATIVE)
[2018-11-28 19:30] LABS: ALBUMIN 3.7 GM/DL (3.2-5.2); ALT/SGPT 27 U/L (12-78); BILIRUBIN,TOTAL 0.4 MG/DL (0.2-1.0); BLOOD UREA NITROGEN 10 MG/DL (7-18); CALCIUM LEVEL 9.2 MG/DL (8.5-10.1); CARBON DIOXIDE LEVEL 30 MEQ/L (21-32); CHLORIDE LEVEL 107 MEQ/L (98-107); CREATININE FOR GFR 0.86 MG/DL (0.55-1.30); GLOMERULAR FILTRATION RATE > 60.0 (>51); GLUCOSE, FASTING 80 MG/DL (70-100); POTASSIUM SERUM 3.9 MEQ/L (3.5-5.1); SODIUM LEVEL 143 MEQ/L (136-145); TOTAL PROTEIN 6.9 GM/DL (6.4-8.2)
[2018-11-28 19:45] LABS: HEMOGLOBIN A1c 5.7 %
== END ==
LOC: M LAB REF 12:26
PROVIDERS: ATTEND Nurse Practitioner Adult Health
DX: R30.0 Dysuria (principal); E11.9 Type 2 diabetes mellitus without complications

== ENCOUNTER 2018-12-03 18:45 | Emergency (ER) | payer OTHER ==
[~2018-12-03] VITALS: Ht 154.9 cm; Wt 85.7 kg
[~2018-12-03 18:45] MED LIST changes: -LISI10TA4 PO; -NYST50SS TOP
[2018-12-03] MEDS ORDERED: NYST50SS TOP (19:48)
[2018-12-03] MEDS ORDERED: LISI10TA4 PO (19:48)
[2018-12-03] MEDS ORDERED: ONDANSETRON 4MG/2ML VIAL (J2405) IV ONE (21:00)
[2018-12-03] MEDS ORDERED: NS 1,000 ML IV ONE (21:00)
[2018-12-03] MEDS ORDERED: KETOROLAC 30 MG/ML VIAL (J1885) IV ONE (21:00)
[2018-12-03 21:47] LABS: BASO # 0.1 10^3/uL (0.0-0.2); BASO % 0.8 % (0.0-1.0); EOS # 0.2 10^3/uL (0.0-0.5); EOS % 2.3 % (0.0-3.0); HEMOGLOBIN 14.5 g/dl (12.0-15.5); LYMPH % 45.7 % (24.0-44.0); MEAN CORPUSCULAR HEMOGLOBIN 31.6 pg (27.0-33.0); MEAN CORPUSCULAR HGB CONC 33.7 g/dl (32.0-36.5); MEAN CORPUSCULAR VOLUME 93.7 fl (80.0-96.0); MONO # 0.3 10^3/uL (0.0-0.8); MONO % 4.9 % (0.0-5.0); NEUTROPHILS # 3.1 10^3/uL (1.5-8.5); NEUTROPHILS % 46.1 % (36.0-66.0); PLATELET COUNT, AUTOMATED 222 10^3/uL (150-450); RED BLOOD COUNT 4.59 10^6/uL (4.00-5.40); WHITE BLOOD COUNT 6.6 10^3/uL (4.0-10.0)
[2018-12-03] MEDS ORDERED: ISOVUE-370 76% 100ML VIAL (Q9967) As Ordered ONE (21:58)
[2018-12-03 22:15] LABS: ALBUMIN 3.6 GM/DL (3.2-5.2); ALT/SGPT 27 U/L (12-78); BILIRUBIN,DIRECT < 0.1 MG/DL (0.0-0.2); BILIRUBIN,TOTAL 0.5 MG/DL (0.2-1.0); C REACTIVE PROTEIN QUANTITATIV < 0.30 MG/DL (0.00-0.30); LIPASE 134 U/L (73-393); TOTAL PROTEIN 6.3 GM/DL (6.4-8.2)
--- NOTE | 2018-12-03 22:46 | REPVR ---
PROCEDURE INFORMATION: Exam: CT Abdomen And Pelvis With Contrast Exam date and time: 12/03/2018 10:07 PM Clinical history: 53 years old, female; Pain; Other: Suprapubic; Additional info: Suprapubic cellulitis R/O abscess TECHNIQUE: Imaging protocol: Computed tomography of the abdomen and pelvis with intravenous contrast. Radiation optimization: All CT scans at this facility use at least one of these dose optimization techniques: automated exposure control; mA and/or kV adjustment per patient size (includes targeted exams where dose is matched to clinical indication); or iterative reconstruction. Contrast material: ISOVUE 370; Contrast volume: 100 ml; Contrast route: IV; COMPARISON: CT ABD PELVIS WITH CONTRAST 11/12/2018 7:06 PM FINDINGS: Liver: The liver attenuation is 70 Hounsfield units and the spleen is 106 Hounsfield units. Gallbladder and bile ducts: Normal. No calcified stones. No ductal dilation. Pancreas: Normal. No ductal dilation. Spleen: Normal. No splenomegaly. Adrenals: Normal. No mass. Kidneys and ureters: Normal. No hydronephrosis. Stomach and bowel: Mild stool throughout much of the colon. Minimal colonic diverticulosis without diverticulitis. Appendix: A normal appendix is seen. Intraperitoneal space: Unremarkable. No free air. No significant fluid collection. Vasculature: Unremarkable. No abdominal aortic aneurysm. Lymph nodes: Unremarkable. No enlarged lymph nodes. Bladder: Unremarkable as visualized. Reproductive: Status post hysterectomy. Bones/joints: Bilateral spondylolysis of L5 with grade 1 anterolisthesis and degenerative interspace narrowing. Soft tissues: Generator implanted in right flank subcutaneous fat with wires extending cephalad and medial. IMPRESSION: 1. There has been little change from 11/12/2018. No acute interval process is identified. 2. Bilateral spondylolysis of L5 with grade 1 anterolisthesis. 3. Mild fatty infiltration of the liver. 4. Minimal colonic diverticulosis without diverticulitis. 5. Status post hysterectomy. Electronically signed by: Adrian Davis On 12/03/2018 22:46:25 PM
[2018-12-03] MEDS ORDERED: DOXY-350 PO (23:44)
[2018-12-03] MEDS ORDERED: PERC5TAB12 PO (23:44)
[2018-12-03 23:55] VITALS: BP 116/61
== END 2018-12-04 00:15 | disposition home or self-care (01) ==
LOC: M ED 18:45
DX: L03.311 Cellulitis of abdominal wall (principal); L30.4 Erythema intertrigo; R11.2 Nausea with vomiting, unspecified; R10.9 Unspecified abdominal pain; E11.9 Type 2 diabetes mellitus without complications; I10 Essential (primary) hypertension; E78.5 Hyperlipidemia, unspecified; J45.909 Unspecified asthma, uncomplicated; K21.9 Gastro-esophageal reflux disease without esophagitis; K76.0 Fatty (change of) liver, not elsewhere classified; M43.17 Spondylolisthesis, lumbosacral region; D64.9 Anemia, unspecified; F41.9 Anxiety disorder, unspecified; F32.9 Major depressive disorder, single episode, unspecified; K57.30 Diverticulosis of large intestine without perforation or abscess without bleeding; Z86.14 Personal history of Methicillin resistant Staphylococcus aureus infection; F17.200 Nicotine dependence, unspecified, uncomplicated; Z88.8 Allergy status to other drugs, medicaments and biological substances; Z88.0 Allergy status to penicillin; Z88.1 Allergy status to other antibiotic agents; Z79.899 Other long term (current) drug therapy; Z79.2 Long term (current) use of antibiotics; Z79.82 Long term (current) use of aspirin; Z79.84 Long term (current) use of oral hypoglycemic drugs; Z79.51 Long term (current) use of inhaled steroids
CPT/HCPCS: 36415; 74177; 80047; 80076; 81001; 83605; 83690; 85025; 86140; 87040; 87070; 87076; 87077; 87186; 87205; 96361; 96374; 96375; 99284; J1885; J2405; Q9967

== ENCOUNTER 2019-02-28 19:31 | Emergency (ER) | payer OTHER ==
[~2019-02-28] VITALS: Ht 154.9 cm; Wt 85.8 kg
[~2019-02-28 19:31] MED LIST changes: +LISI10TA4 PO; +NYST50SS TOP; -OMEP40CA2 PO; +OMEP40CA97 PO
[2019-02-28] MEDS ORDERED: ACET650T15 PO (20:00)
[2019-02-28] MEDS ORDERED: BUSP15TA47 PO (20:01)
[2019-02-28] MEDS ORDERED: VITA50005 PO (20:02)
--- NOTE | 2019-02-28 20:40 | REP ---
Clinical: Trauma . Technique: AP, lateral, bilateral oblique views of the left elbow. Findings: No acute fracture or dislocation is appreciated. Joint spaces and surrounding soft tissues appear normal. Lateral view demonstrates normal positioning to the anterior and posterior fat pads without evidence for effusion/hemarthrosis. No subcutaneous emphysema or foreign body identified. Impression: Normal left elbow radiographs. Electronically Signed by Luis Chavez MD 02/28/2019 08:31 P
--- NOTE | 2019-02-28 20:41 | REP ---
Clinical: Trauma. Technique: AP, lateral, bilateral oblique views of the right and left wrist. Findings: The carpal bones, surrounding osseous structures, soft tissues, and joint spaces demonstrate symmetric age-related changes. There is no evidence for acute fracture or dislocation of the right or left wrist. No subcutaneous emphysema or radiodense foreign body. Impression: No obvious acute fracture involving the right or left wrist. If the patient remains symptomatic consider reevaluation in 3-5 days. Electronically Signed by Luis Chavez MD 02/28/2019 08:33 P
[2019-02-28] MEDS ORDERED: NAPR-837 PO (21:55)
[2019-02-28] MEDS ORDERED: NAPROXEN 250 MG TAB PO ONE (22:00)
[2019-02-28 22:11] VITALS: BP 131/93
== END 2019-02-28 22:11 | disposition home or self-care (01) ==
LOC: M ED 19:31
DX: S66.911A Strain of unspecified muscle, fascia and tendon at wrist and hand level, right hand, initial encounter (principal); S66.912A Strain of unspecified muscle, fascia and tendon at wrist and hand level, left hand, initial encounter; W00.1XXA Fall from stairs and steps due to ice and snow, initial encounter; Y92.9 Unspecified place or not applicable; M67.471 Ganglion, right ankle and foot; S53.402A Unspecified sprain of left elbow, initial encounter; E78.00 Pure hypercholesterolemia, unspecified; K21.9 Gastro-esophageal reflux disease without esophagitis; E11.9 Type 2 diabetes mellitus without complications; F17.200 Nicotine dependence, unspecified, uncomplicated; Z79.899 Other long term (current) drug therapy; Z90.710 Acquired absence of both cervix and uterus; Z96.9 Presence of functional implant, unspecified; Z88.0 Allergy status to penicillin; Z88.1 Allergy status to other antibiotic agents; Z88.8 Allergy status to other drugs, medicaments and biological substances

== ENCOUNTER → 2019-03-14 | Outpatient (REF) | payer OTHER, MEDICAID ==
[~2019-03-14] MED LIST changes: +ACET650T15 PO; +BUSP15TA47 PO; +NAPR-837 PO; +VITA50005 PO
[2019-03-14 17:46] LABS: BASO % 0.6 % (0.0-1.0); EOS # 0.1 10^3/uL (0.0-0.5); EOS % 0.9 % (0.0-3.0); HEMOGLOBIN 14.3 g/dl (12.0-15.5); LYMPH # 2.5 10^3/uL (1.5-5.0); LYMPH % 38.3 % (24.0-44.0); MEAN CORPUSCULAR HGB CONC 32.5 g/dl (32.0-36.5); MEAN CORPUSCULAR VOLUME 95.4 fl (80.0-96.0); MONO # 0.3 10^3/uL (0.0-0.8); MONO % 4.9 % (0.0-5.0); NEUTROPHILS # 3.6 10^3/uL (1.5-8.5); NEUTROPHILS % 55.1 % (36.0-66.0); PLATELET COUNT, AUTOMATED 237 10^3/uL (150-450); RED BLOOD COUNT 4.61 10^6/uL (4.00-5.40); WHITE BLOOD COUNT 6.6 10^3/uL (4.0-10.0)
[2019-03-14 18:02] LABS: HEMOGLOBIN A1c 5.7 %
[2019-03-14 18:14] LABS: ALT/SGPT 22 U/L (12-78); BILIRUBIN,TOTAL 0.6 MG/DL (0.2-1.0); BLOOD UREA NITROGEN 10 MG/DL (7-18); CALCIUM LEVEL 9.3 MG/DL (8.5-10.1); CARBON DIOXIDE LEVEL 25 MEQ/L (21-32); CHLORIDE LEVEL 107 MEQ/L (98-107); CREATININE FOR GFR 0.87 MG/DL (0.55-1.30); GLOMERULAR FILTRATION RATE > 60.0 (>51); GLUCOSE, FASTING 82 MG/DL (70-100); POTASSIUM SERUM 4.4 MEQ/L (3.5-5.1); SODIUM LEVEL 140 MEQ/L (136-145); TOTAL PROTEIN 6.9 GM/DL (6.4-8.2)
== END ==
LOC: M LAB REF 17:11
PROVIDERS: ATTEND Nurse Practitioner Adult Health
DX: D64.9 Anemia, unspecified (principal); I10 Essential (primary) hypertension

== ENCOUNTER → 2019-03-27 | Outpatient (CLI) | payer OTHER ==
[2019-03-27 09:31] LABS: HEMATOCRIT 43.9 % (36.0-47.0); HEMOGLOBIN 14.5 g/dl (12.0-15.5); MEAN CORPUSCULAR HEMOGLOBIN 31.5 pg (27.0-33.0); MEAN CORPUSCULAR VOLUME 95.4 fl (80.0-96.0); PLATELET COUNT, AUTOMATED 241 10^3/uL (150-450)
[2019-03-27 09:47] LABS: HEMOGLOBIN A1c 5.9 %
[2019-03-27 10:06] LABS: ALBUMIN 3.7 GM/DL (3.2-5.2); ALT/SGPT 19 U/L (12-78); BILIRUBIN,TOTAL 0.5 MG/DL (0.2-1.0); BLOOD UREA NITROGEN 11 MG/DL (7-18); CALCIUM LEVEL 9.1 MG/DL (8.5-10.1); CARBON DIOXIDE LEVEL 28 MEQ/L (21-32); CHLORIDE LEVEL 105 MEQ/L (98-107); CREATININE FOR GFR 0.84 MG/DL (0.55-1.30); FREE T4 0.89 NG/DL (0.76-1.46); GLOMERULAR FILTRATION RATE > 60.0 (>51); GLUCOSE, FASTING 91 MG/DL (70-100); POTASSIUM SERUM 4.3 MEQ/L (3.5-5.1); SODIUM LEVEL 141 MEQ/L (136-145); TOTAL PROTEIN 6.3 GM/DL (6.4-8.2)
[2019-03-30 00:07] LABS: DOXEPIN 59 ng/mL (Not Estab.)
== END ==
LOC: M LAB 08:16
PROVIDERS: ATTEND Nurse Practitioner Psychiatric/Mental Health
DX: F34.1 Dysthymic disorder (principal)
CPT/HCPCS: 36415; 80053; 83036; 84439; 84443; 85027; G0480

== ENCOUNTER → 2019-03-27 | Outpatient (CLI) | payer OTHER ==
[2019-03-27 09:30] LABS: BASO % 0.5 % (0.0-1.0); EOS # 0.1 10^3/uL (0.0-0.5); EOS % 1.7 % (0.0-3.0); HEMATOCRIT 43.2 % (36.0-47.0); HEMOGLOBIN 14.3 g/dl (12.0-15.5); LYMPH # 2.5 10^3/uL (1.5-5.0); LYMPH % 42.8 % (24.0-44.0); MEAN CORPUSCULAR HEMOGLOBIN 31.6 pg (27.0-33.0); MEAN CORPUSCULAR HGB CONC 33.1 g/dl (32.0-36.5); MEAN CORPUSCULAR VOLUME 95.4 fl (80.0-96.0); MONO # 0.3 10^3/uL (0.0-0.8); MONO % 5.4 % (0.0-5.0); NEUTROPHILS # 2.9 10^3/uL (1.5-8.5); NEUTROPHILS % 49.4 % (36.0-66.0); PLATELET COUNT, AUTOMATED 234 10^3/uL (150-450); RED BLOOD COUNT 4.53 10^6/uL (4.00-5.40); WHITE BLOOD COUNT 5.9 10^3/uL (4.0-10.0)
[2019-03-27 09:57] LABS: ALBUMIN 3.7 GM/DL (3.2-5.2); ALT/SGPT 19 U/L (12-78); BILIRUBIN,TOTAL 0.5 MG/DL (0.2-1.0); BLOOD UREA NITROGEN 11 MG/DL (7-18); C REACTIVE PROTEIN QUANTITATIV < 0.30 MG/DL (0.00-0.30); CALCIUM LEVEL 8.9 MG/DL (8.5-10.1); CARBON DIOXIDE LEVEL 29 MEQ/L (21-32); CHLORIDE LEVEL 104 MEQ/L (98-107); CREATININE FOR GFR 0.85 MG/DL (0.55-1.30); GLOMERULAR FILTRATION RATE > 60.0 (>51); GLUCOSE, FASTING 91 MG/DL (70-100); SODIUM LEVEL 139 MEQ/L (136-145); TOTAL PROTEIN 6.5 GM/DL (6.4-8.2)
[2019-03-27 10:10] LABS: ERYTHROCYTE SEDIMENTATION RATE 5 mm/hr (0-30)
== END ==
LOC: M LAB 08:23
PROVIDERS: ATTEND Physician Assistant
DX: Z79.899 Other long term (current) drug therapy (principal)

== ENCOUNTER 2019-04-14 23:09 | Emergency (ER) | payer OTHER ==
[~2019-04-14] VITALS: Ht 154.9 cm; Wt 82.3 kg
[2019-04-14] MEDS ORDERED: MELO7.5T35 (23:37)
[2019-04-14] MEDS ORDERED: GABA-1171 (23:37)
[2019-04-14] MEDS ORDERED: ONDANSETRON 4MG/2ML VIAL (J2405) IV ONE (23:45)
[2019-04-15] MEDS: MORPHINE 4 MG/ML 1ML VIAL/SYRINGE (J2270) IV PRN ×2 (00:12→01:27)
--- NOTE | 2019-04-15 00:26 | REPVR ---
PROCEDURE INFORMATION: Exam: CT Head Without Contrast Exam date and time: 04/14/2019 11:50 PM Age: 53 years old Clinical indication: Injury or trauma; Fall; Initial encounter; Blunt trauma (contusions or hematomas); With loss of consciousness; Not specified; Additional info: Fall, loc TECHNIQUE: Imaging protocol: Computed tomography of the head without contrast. Radiation optimization: All CT scans at this facility use at least one of these dose optimization techniques: automated exposure control; mA and/or kV adjustment per patient size (includes targeted exams where dose is matched to clinical indication); or iterative reconstruction. COMPARISON: CT Head without contrast 11/12/2018 7:01 PM FINDINGS: Brain: No evidence of acute intracranial hemorrhage. No acute parenchymal edema. Ventricles: No ventriculomegaly. Bones/joints: No acute fracture. Sinuses: There is a 10 mm mucous retention cyst in the floor of the left maxillary sinus. No acute process. Mastoid air cells: Unremarkable as visualized. No mastoid effusion. Soft tissues: No acute findings. IMPRESSION: No acute intracranial process. Electronically signed by: Chavez Fitch On 04/15/2019 00:26:08 AM
--- NOTE | 2019-04-15 00:31 | REPVR ---
PROCEDURE INFORMATION: Exam: CT Cervical Spine Without Contrast Exam date and time: 04/14/2019 11:50 PM Age: 53 years old Clinical indication: Injury or trauma; Fall; Initial encounter; Blunt trauma; Additional info: Fall, loc TECHNIQUE: Imaging protocol: Computed tomography images of the cervical spine without contrast. Radiation optimization: All CT scans at this facility use at least one of these dose optimization techniques: automated exposure control; mA and/or kV adjustment per patient size (includes targeted exams where dose is matched to clinical indication); or iterative reconstruction. COMPARISON: CT Spine,cervical w/o contrast 11/12/2018 7:01 PM FINDINGS: Tubes, catheters and devices: There are stimulator leads in the posterior epidural space from a posterior approach, entering the spinal canal at the C3-C4 interspace. Vertebrae: No acute fracture. Normal alignment. Discs/Spinal canal/Neural foramina: There are multilevel degenerative disc changes. Soft tissues: Unremarkable. Lungs: The lung apices are unremarkable. IMPRESSION: No acute fracture or dislocation. There is multilevel degenerative disc disease. Electronically signed by: Chavez Fitch On 04/15/2019 00:31:28 AM
--- NOTE | 2019-04-15 00:35 | REPVR ---
PROCEDURE INFORMATION: Exam: CT Lumbar Spine Without Contrast Exam date and time: 04/14/2019 11:50 PM Age: 53 years old Clinical indication: Injury or trauma; Fall; Initial encounter; Blunt trauma (contusions or hematomas); Additional info: Fall, loc TECHNIQUE: Imaging protocol: Computed tomography images of the lumbar spine without contrast. Radiation optimization: All CT scans at this facility use at least one of these dose optimization techniques: automated exposure control; mA and/or kV adjustment per patient size (includes targeted exams where dose is matched to clinical indication); or iterative reconstruction. COMPARISON: CT Spine, lumbar w/o contrast 11/12/2018 7:06 PM FINDINGS: Vertebrae: No acute fracture. There is lysis of the bilateral pars interarticularis at L5-S1 with chronic features. There is grade 1 anterior listhesis at L5-S1. Otherwise normal alignment. Discs/Spinal canal/Neural foramina: There are multilevel degenerative disc changes. Soft tissues: Unremarkable. IMPRESSION: No acute process or fracture. There is chronic spondylolysis and spondylolisthesis at L5-S1. There are multilevel degenerative disc changes most pronounced at L5-S1. Electronically signed by: Chavez Fitch On 04/15/2019 00:34:51 AM
--- NOTE | 2019-04-15 00:36 | REPVR ---
PROCEDURE INFORMATION: Exam: CT Thoracic Spine Without Contrast Exam date and time: 04/14/2019 11:50 PM Age: 53 years old Clinical indication: Injury or trauma; Fall; Initial encounter; Blunt trauma (contusions or hematomas); Additional info: Fall, loc TECHNIQUE: Imaging protocol: Computed tomography images of the thoracic spine without contrast. Radiation optimization: All CT scans at this facility use at least one of these dose optimization techniques: automated exposure control; mA and/or kV adjustment per patient size (includes targeted exams where dose is matched to clinical indication); or iterative reconstruction. COMPARISON: CT Spine,thoracic w/o contrast 11/12/2018 7:06 PM FINDINGS: Vertebrae: There is spondylitis. No evidence of acute fracture or dislocation. There is levoscoliosis of the upper thoracic spine. Discs/Spinal canal/Neural foramina: There are degenerative disc changes. Soft tissues: Unremarkable. IMPRESSION: No acute process or fracture. There is spondylitis and degenerative disc disease. Electronically signed by: Chavez Fitch On 04/15/2019 00:36:47 AM
[2019-04-15 02:31] VITALS: BP 126/71
--- NOTE | 2019-04-15 09:41 | REP ---
Clinical: Trauma. Fall. Technique: Frontal view of the pelvis with neutral and frog lateral views of the right and left hip. Findings: Generalized age-related changes are appreciated bilaterally. No acute fracture or dislocation. Impression: No acute fracture or dislocation. Electronically Signed by Luis Chavez MD 04/15/2019 09:33 A
== END 2019-04-15 03:06 | disposition home or self-care (01) ==
LOC: M ED 23:09
DX: R29.6 Repeated falls (principal); W10.8XXA Fall (on) (from) other stairs and steps, initial encounter; W54.8XXA Other contact with dog, initial encounter; Y92.098 Other place in other non-institutional residence as the place of occurrence of the external cause; M54.9 Dorsalgia, unspecified; G89.29 Other chronic pain; Z96.82 Presence of neurostimulator; F17.210 Nicotine dependence, cigarettes, uncomplicated; Z88.8 Allergy status to other drugs, medicaments and biological substances; Z88.0 Allergy status to penicillin; Z88.1 Allergy status to other antibiotic agents; Z88.4 Allergy status to anesthetic agent; Z79.899 Other long term (current) drug therapy; Z79.1 Long term (current) use of non-steroidal anti-inflammatories (NSAID); Z79.82 Long term (current) use of aspirin; Z79.84 Long term (current) use of oral hypoglycemic drugs
CPT/HCPCS: 70450; 72125; 72128; 72131; 73502; 96374; 96375; 96376; 99284; J2270; J2405

== ENCOUNTER 2019-05-17 15:28 | Emergency (ER) | payer OTHER ==
[~2019-05-17 15:28] MED LIST changes: +GABA-1171; +MELO7.5T35
[2019-05-17] MEDS ORDERED: ACETAMINOPHEN 325 MG TAB PO ONE (16:30)
[2019-05-17 17:08] LABS: APPEARANCE, URINE CLEAR (CLEAR); BACTERIA, URINE AUTO NEGATIVE (NEGATIVE); BILIRUBIN, URINE AUTO NEGATIVE (NEGATIVE); BLOOD, URINE BLOOD NEGATIVE (NEGATIVE); COLOR, URINE STRAW (YELLOW); GLUCOSE, URINE (UA) AUTO NEGATIVE (NEGATIVE); HEMATOCRIT 41.1 % (36.0-47.0); KETONE, URINE AUTO NEGATIVE (NEGATIVE); LEUKOCYTE ESTERASE, URINE AUTO NEGATIVE (NEGATIVE); MEAN CORPUSCULAR HEMOGLOBIN 31.4 pg (27.0-33.0); MEAN CORPUSCULAR HGB CONC 34.1 g/dl (32.0-36.5); MEAN CORPUSCULAR VOLUME 92.2 fl (80.0-96.0); NITRITE, URINE AUTO NEGATIVE (NEGATIVE); PLATELET COUNT, AUTOMATED 227 10^3/uL (150-450); PROTEIN, URINE AUTO NEGATIVE (NEGATIVE); RBC, URINE AUTO 0 /HPF (0-3); RED BLOOD COUNT 4.46 10^6/uL (4.00-5.40); SPECIFIC GRAVITY URINE AUTO 1.003 (1.002-1.035); SQUAMOUS EPITHELIAL CELL UR AU 0 /HPF (0-6); UROBILINOGEN, URINE AUTO 0.2 mg/dL (0.0-2.0); WBC, URINE AUTO 0 /HPF (0-3); WHITE BLOOD COUNT 7.1 10^3/uL (4.0-10.0)
[2019-05-17 17:37] LABS: BLOOD UREA NITROGEN 11 MG/DL (7-18); CALCIUM LEVEL 9.1 MG/DL (8.5-10.1); CARBON DIOXIDE LEVEL 29 MEQ/L (21-32); CHLORIDE LEVEL 107 MEQ/L (98-107); CK-MB VALUE MASS < 1.0 NG/ML (<3.6); CPK CREATINE PHOSPHOKINASE 64 U/L (26-192); GLOMERULAR FILTRATION RATE > 60.0 (>51); GLUCOSE, FASTING 83 MG/DL (70-100); MB/CK RELATIVE INDEX 1.56 (< OR =4); POTASSIUM SERUM 3.5 MEQ/L (3.5-5.1); SODIUM LEVEL 141 MEQ/L (136-145); TROPONIN I < 0.02 NG/ML (< 0.10)
[2019-05-17] MEDS ORDERED: METOPROLOL 5 MG/5 ML VIAL IV STA (18:18)
[2019-05-17] MEDS ORDERED: METOPROLOL TART 25 MG TABLET PO ONE (18:30)
[2019-05-17 18:37] VITALS: BP 157/87
--- NOTE | 2019-05-17 18:41 | REPVR ---
PROCEDURE INFORMATION: Exam: CT Head Without Contrast Exam date and time: 05/17/2019 6:18 PM Age: 53 years old Clinical indication: Pain; Headache; Other: Posterior; Additional info: Severe posterior headache TECHNIQUE: Imaging protocol: Computed tomography of the head without contrast. Radiation optimization: All CT scans at this facility use at least one of these dose optimization techniques: automated exposure control; mA and/or kV adjustment per patient size (includes targeted exams where dose is matched to clinical indication); or iterative reconstruction. COMPARISON: CT Head without contrast 04/14/2019 11:46 PM FINDINGS: Brain: Normal. No hemorrhage. Unremarkable white matter. No mass effect. Ventricles: Normal. No ventriculomegaly. Bones/joints: Unremarkable. No acute fracture. Sinuses: Mild inflammatory disease in the left ethmoid sinus. Mastoid air cells: Visualized mastoid air cells are well aerated. Soft tissues: Unremarkable. IMPRESSION: No acute findings. Electronically signed by: Camilo Potts On 05/17/2019 18:41:30 PM
[2019-05-17 20:15] VITALS: BP 151/89
[2019-05-17] MEDS ORDERED: METO25TA4 PO (20:22)
[2019-05-17] MEDS ORDERED: ADVOTES6 MC (20:22)
[2019-05-17] MEDS ORDERED: LEVA1TAB2 PO (20:23)
--- NOTE | 2019-05-18 18:39 | ECGEPIP ---
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
== END 2019-05-17 20:44 | disposition home or self-care (01) ==
LOC: EDBD 15:28 → M ED 15:28
DX: I11.0 Hypertensive heart disease with heart failure (principal); J32.9 Chronic sinusitis, unspecified; R51 Headache; I50.9 Heart failure, unspecified; G90.50 Complex regional pain syndrome I, unspecified; F17.210 Nicotine dependence, cigarettes, uncomplicated; Z88.0 Allergy status to penicillin; Z88.8 Allergy status to other drugs, medicaments and biological substances; Z88.1 Allergy status to other antibiotic agents; Z79.899 Other long term (current) drug therapy; Z79.82 Long term (current) use of aspirin; Z79.84 Long term (current) use of oral hypoglycemic drugs

== ENCOUNTER 2019-05-28 21:12 | Emergency (ER) | payer OTHER ==
[~2019-05-28] VITALS: Ht 154.9 cm; Wt 84.6 kg
[~2019-05-28 21:12] MED LIST changes: +ADVOTES6 MC; +LEVA1TAB2 PO; +METO25TA4 PO
[2019-05-28] MEDS ORDERED: PRAZ2CAP PO (21:26)
[2019-05-28 21:39] LABS: VENOUS BASE EXCESS -3.2 (-2.0-2.0); VENOUS HCO3 19.8 MEQ/L (23.0-27.0); VENOUS O2 SATURATION 83.9 % (60.0-80.0); VENOUS PARTIAL PRESSURE CO2 30.3 mmHg (38.0-50.0); VENOUS PARTIAL PRESSURE O2 45.5 mmHg (30.0-50.0); VENOUS PH 7.434 UNITS (7.330-7.430); VENOUS STANDARD HCO3 21.5 MEQ/L; VENOUS TOTAL CO2 20.8 MEQ/L (24.0-28.0)
[2019-05-28 21:57] LABS: BASO % 0.6 % (0.0-1.0); EOS # 0.1 10^3/uL (0.0-0.5); EOS % 1.6 % (0.0-3.0); HEMATOCRIT 40.5 % (36.0-47.0); HEMOGLOBIN 13.8 g/dl (12.0-15.5); LYMPH # 3.2 10^3/uL (1.5-5.0); LYMPH % 50.2 % (24.0-44.0); MEAN CORPUSCULAR HGB CONC 34.1 g/dl (32.0-36.5); MONO # 0.3 10^3/uL (0.0-0.8); MONO % 4.2 % (0.0-5.0); NEUTROPHILS # 2.8 10^3/uL (1.5-8.5); NEUTROPHILS % 43.1 % (36.0-66.0); PLATELET COUNT, AUTOMATED 227 10^3/uL (150-450); RED BLOOD COUNT 4.31 10^6/uL (4.00-5.40); WHITE BLOOD COUNT 6.4 10^3/uL (4.0-10.0)
[2019-05-28 22:19] LABS: ALBUMIN 3.8 GM/DL (3.2-5.2); ALT/SGPT 30 U/L (12-78); BILIRUBIN,DIRECT 0.2 MG/DL (0.0-0.2); BILIRUBIN,TOTAL 0.5 MG/DL (0.2-1.0); BLOOD UREA NITROGEN 10 MG/DL (7-18); CALCIUM LEVEL 9.3 MG/DL (8.5-10.1); CARBON DIOXIDE LEVEL 23 MEQ/L (21-32); CHLORIDE LEVEL 108 MEQ/L (98-107); CK-MB VALUE MASS 1.7 NG/ML (<3.6); CPK CREATINE PHOSPHOKINASE 126 U/L (26-192); CREATININE FOR GFR 0.95 MG/DL (0.55-1.30); FREE T4 1.12 NG/DL (0.76-1.46); GLOMERULAR FILTRATION RATE > 60.0 (>51); GLUCOSE, FASTING 138 MG/DL (70-100); MB/CK RELATIVE INDEX 1.35 (< OR =4); NT-PRO BNP 40 PG/ML (<125); POTASSIUM SERUM 3.3 MEQ/L (3.5-5.1); SODIUM LEVEL 139 MEQ/L (136-145); TOTAL PROTEIN 6.5 GM/DL (6.4-8.2); TROPONIN I < 0.02 NG/ML (< 0.10)
[2019-05-28] MEDS ORDERED: METOCLOPRAMIDE INJ 10MG/2ML VIAL (J2765) IV ONE (22:30)
[2019-05-28] MEDS ORDERED: KETOROLAC 30 MG/ML VIAL (J1885) IV ONE (22:30)
[2019-05-28] MEDS ORDERED: NS 1,000 ML IV ONE (22:45)
[2019-05-29] MEDS ORDERED: AMLO5TAB6 PO (00:16)
[2019-05-29] MEDS ORDERED: LISI-538 PO (00:20)
[2019-05-29 00:45] VITALS: BP 92/55
--- NOTE | 2019-05-29 02:39 | ECGEPIP ---
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
--- NOTE | 2019-05-29 08:21 | REP ---
Portable chest x-ray: Single view. History: Dyspnea and cough. Comparison chest x-ray: May 16, 2018. Findings: A dorsal column stimulator lead is noted in place in the cervical spinal canal. The lungs are well inflated and clear. Pleural angles are sharp. Heart size is normal. Pulmonary vasculature is not increased. No significant bony abnormality. Impression: Negative portable chest x-ray. Dorsal column stimulator lead in the cervical canal. Electronically Signed by Dillon Dutton MD 05/29/2019 08:13 A
== END 2019-05-29 00:53 | disposition home or self-care (01) ==
LOC: M ED 21:12
DX: I95.1 Orthostatic hypotension (principal); E11.9 Type 2 diabetes mellitus without complications; I11.0 Hypertensive heart disease with heart failure; I50.9 Heart failure, unspecified; G25.81 Restless legs syndrome; Z79.899 Other long term (current) drug therapy; Z79.84 Long term (current) use of oral hypoglycemic drugs; Z79.82 Long term (current) use of aspirin; Z88.0 Allergy status to penicillin; Z88.1 Allergy status to other antibiotic agents; Z88.8 Allergy status to other drugs, medicaments and biological substances
CPT/HCPCS: 36415; 71045; 80048; 80076; 82550; 82553; 82803; 83605; 83880; 84439; 84443; 85025; 93005; 93041; 96361; 96374; 96375; 99285; J1885; J2765

== ENCOUNTER 2019-06-10 22:05 | Emergency (ER) | payer OTHER ==
[~2019-06-10] VITALS: Ht 157.5 cm; Wt 86.4 kg
[~2019-06-10 22:05] MED LIST changes: +AMLO5TAB6 PO; +CYCL-707 PO; -CYCL10TA PO; +LISI-538 PO; +PRAZ2CAP PO
[2019-06-10 23:07] LABS: BASO % 0.5 % (0.0-1.0); EOS # 0.1 10^3/uL (0.0-0.5); EOS % 1.9 % (0.0-3.0); HEMATOCRIT 38.4 % (36.0-47.0); HEMOGLOBIN 12.8 g/dl (12.0-15.5); LYMPH # 3.2 10^3/uL (1.5-5.0); LYMPH % 50.6 % (24.0-44.0); MEAN CORPUSCULAR HEMOGLOBIN 31.8 pg (27.0-33.0); MEAN CORPUSCULAR HGB CONC 33.3 g/dl (32.0-36.5); MEAN CORPUSCULAR VOLUME 95.3 fl (80.0-96.0); MONO # 0.4 10^3/uL (0.0-0.8); MONO % 5.5 % (0.0-5.0); NEUTROPHILS # 2.6 10^3/uL (1.5-8.5); NEUTROPHILS % 41.2 % (36.0-66.0); PLATELET COUNT, AUTOMATED 214 10^3/uL (150-450); RED BLOOD COUNT 4.03 10^6/uL (4.00-5.40); WHITE BLOOD COUNT 6.4 10^3/uL (4.0-10.0)
[2019-06-10 23:10] LABS: INR 0.96; PROTHROMBIN TIME 12.5 SECONDS (11.8-14.0)
[2019-06-10 23:11] LABS: PARTIAL THROMBOPLASTIN TIME 21.2 SECONDS (25.0-38.4)
[2019-06-10 23:20] LABS: BLOOD UREA NITROGEN 12 MG/DL (7-18); CALCIUM LEVEL 8.4 MG/DL (8.5-10.1); CARBON DIOXIDE LEVEL 25 MEQ/L (21-32); CHLORIDE LEVEL 108 MEQ/L (98-107); CPK CREATINE PHOSPHOKINASE 85 U/L (26-192); CREATININE FOR GFR 0.95 MG/DL (0.55-1.30); GLOMERULAR FILTRATION RATE > 60.0 (>51); GLUCOSE, FASTING 140 MG/DL (70-100); MB/CK RELATIVE INDEX 1.18 (< OR =4); POTASSIUM SERUM 3.4 MEQ/L (3.5-5.1); SODIUM LEVEL 142 MEQ/L (136-145); TROPONIN I < 0.02 NG/ML (< 0.10)
[2019-06-10] MEDS ORDERED: ISOVUE-370 76% 100ML VIAL (Q9967) As Ordered ONE (23:44)
[2019-06-11] MEDS ORDERED: NS 1,000 ML IV ONE (00:15)
--- NOTE | 2019-06-11 00:23 | REPVR ---
PROCEDURE INFORMATION: Exam: CT Head Without Contrast Exam date and time: 06/10/2019 12:05 AM Age: 53 years old Clinical indication: Pain; Headache TECHNIQUE: Imaging protocol: Computed tomography of the head without contrast. Radiation optimization: All CT scans at this facility use at least one of these dose optimization techniques: automated exposure control; mA and/or kV adjustment per patient size (includes targeted exams where dose is matched to clinical indication); or iterative reconstruction. COMPARISON: CT Head without contrast 05/17/2019 6:28 PM FINDINGS: Brain: There is no evidence for an acute large vessel territorial infarct, intracranial hemorrhage, mass, mass effect, or herniation. The cortical gyration pattern, basal ganglia, thalami, and cerebellum are normal in appearance. Brainstem: Unremarkable. Midline shift: There is no midline shift. Ventricles: Normal. No ventriculomegaly. Bones/joints: Unremarkable. No acute fracture. Sinuses: There is mild opacification in the left ethmoid sinus, which is similar in appearance compared to the prior CT on 05/17/2019. No air-fluid levels are seen in the imaged sinuses. The maxillary sinuses were not fully imaged. Mastoid air cells: Visualized mastoid air cells are well-aerated. Soft tissues: Unremarkable. IMPRESSION: No acute intracranial abnormality. Electronically signed by: Rip Molina On 06/11/2019 00:22:49 AM
--- NOTE | 2019-06-11 00:37 | REPVR ---
PROCEDURE INFORMATION: Exam: CT Abdomen And Pelvis With Contrast Exam date and time: 06/10/2019 12:05 AM Age: 53 years old Clinical indication: Abdominal pain TECHNIQUE: Imaging protocol: Computed tomography of the abdomen and pelvis with intravenous contrast. Axial, coronal and sagittal reformatted images were created and reviewed. Radiation optimization: All CT scans at this facility use at least one of these dose optimization techniques: automated exposure control; mA and/or kV adjustment per patient size (includes targeted exams where dose is matched to clinical indication); or iterative reconstruction. Contrast material: ISO 370; Contrast volume: 100 ml; Contrast route: IV; COMPARISON: CT ABD/PEL W/IV CONTRAST ONLY 12/03/2018 10:12 PM FINDINGS: Tubes, catheters and devices: Neurostimulator device in the subcutaneous tissues of the right flank. Liver: Unremarkable. Gallbladder and bile ducts: No radiodense gallstones. No biliary ductal dilatation. Pancreas: Unremarkable. Spleen: Unremarkable. Adrenals: Unchanged 6 mm hypodense left adrenal nodule, likely a benign adenoma (no follow-up is indicated based on the imaging findings). Kidneys and ureters: No mass. No radiodense calculi. No hydronephrosis. Stomach and bowel: Moderate amount of retained stool in the colon. Scattered colonic diverticula without evidence of diverticulitis. No obstruction. No bowel wall thickening. No pneumatosis. Appendix: Normal. Intraperitoneal space: No free fluid. No organized fluid collection. No free air. Vasculature: Minimal atherosclerotic disease. No aneurysm or dissection. Lymph nodes: No pathologically enlarged lymph nodes. Bladder: Unremarkable. Reproductive: Status post hysterectomy. Bones/joints: No acute osseous abnormality. Mild degenerative changes. Bilateral L5 pars defects with grade 1 anterolisthesis of L5 on S1. Soft tissues: Small, fat containing umbilical hernia. IMPRESSION: 1. No CT evidence of acute intra-abdominal or pelvic pathology. 2. Additional findings, as above. Electronically signed by: Priyank Vieyra On 06/11/2019 00:37:00 AM
--- NOTE | 2019-06-11 00:51 | REPVR ---
PROCEDURE INFORMATION: Exam: CT Angiography Chest With Contrast Exam date and time: 06/10/2019 12:05 AM Age: 53 years old Clinical indication: Chest pain TECHNIQUE: Imaging protocol: Computed tomographic angiography of the chest with intravenous contrast. 3D rendering: MIP and/or 3D reconstructed images were created by the technologist. Radiation optimization: All CT scans at this facility use at least one of these dose optimization techniques: automated exposure control; mA and/or kV adjustment per patient size (includes targeted exams where dose is matched to clinical indication); or iterative reconstruction. Contrast material: ISO 370; Contrast volume: 100 ml; Contrast route: IV; COMPARISON: CT ANGIO CHEST 10/13/2017 6:18 PM FINDINGS: Pulmonary arteries: No pulmonary embolism. Great vessels off aortic arch: The brachiocephalic artery, imaged proximal portion of the left common carotid artery, and left subclavian artery are intact. No stenosis or occlusion of these vessels is noted. Aorta: There is no thoracic aortic aneurysm, pseudoaneurysm, intramural hematoma, penetrating atherosclerotic ulcer, or dissection. Thyroid: Unremarkable. Tracheobronchial tree: Normal. Lungs: The lungs are clear. There are small pulmonary cysts in the right upper lobe and right middle lobe that are similar in appearance compared to the prior CTA chest on 10/13/2017. Pleural space: Normal. No pneumothorax or pleural effusion. Heart: No cardiomegaly or pericardial effusion. The ratio of the diameter of the right ventricle to the diameter of the left ventricle measures less than 1, which is within normal limits and there is no evidence for a right ventricular strain. Mediastinum: There is a 15 mm oval-shaped high density object in the lumen of the midthoracic esophagus, which measures approximately 447 Hounsfield units, and may represent a pill (image 68 of the coronal series 403). No dilation of the esophagus is noted. No mediastinal mass, fluid collection, or pneumomediastinum. Lymph nodes: Normal. No enlarged lymph nodes. Bones/joints: No fracture or dislocation is noted. There is no suspicious osteolytic or osteoblastic lesion. There are endplate spurs in the thoracic spine. There is a mild levoscoliosis of the upper thoracic spine. Soft tissues: Unremarkable. No soft tissue fluid collection. IMPRESSION: 1. No pulmonary embolism. Clear lungs. 2. 15 mm oval-shaped high-density object in the midthoracic esophagus, which may represent a pill lodged in the esophagus. Electronically signed by: Rip Molina On 06/11/2019 00:51:13 AM
[2019-06-11 01:49] VITALS: BP 137/64
--- NOTE | 2019-06-11 07:50 | ECGEPIP ---
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 Rule out prior septal infarction. Nonspecific ST/T wave abnormalities with associated QT prolongation. Slightly different precordial lead placement with subtle T wave changes from 05/28/19. Clinical correlation advised Electronically Signed on 06-11-2019 7:49:39 EDT by Nash Hernandez
== END 2019-06-11 02:00 | disposition home or self-care (01) ==
LOC: M ED 22:05
DX: I95.89 Other hypotension (principal); R51 Headache; K21.9 Gastro-esophageal reflux disease without esophagitis; F17.218 Nicotine dependence, cigarettes, with other nicotine-induced disorders; Z88.0 Allergy status to penicillin; Z88.8 Allergy status to other drugs, medicaments and biological substances; Z88.1 Allergy status to other antibiotic agents; F41.9 Anxiety disorder, unspecified; F32.9 Major depressive disorder, single episode, unspecified
CPT/HCPCS: 70450; 71275; 74177; 80048; 82550; 82553; 85025; 85610; 85730; 93005; 99284; Q9967

== ENCOUNTER 2019-07-31 18:41 | Emergency (ER) | payer OTHER ==
[~2019-07-31] VITALS: Ht 154.9 cm; Wt 83.9 kg
[~2019-07-31 18:41] MED LIST changes: +AMLO1TAB24 PO; -AMLO5TAB6 PO; -ASPI81TA85 PO; +ASPI81TA86 PO; -CETI5SOL2 PO; +CETI5SYRP PO; +GABA-282 PO; -GABA-843 PO; -LISI-538 PO; +LISI10TA22 PO; -LISI10TA4 PO; +LISI20TA33 PO; -MELO7.5T35; +VENTAER INH
[2019-07-31] MEDS ORDERED: HYDR1CAP25 PO (18:53)
[2019-07-31] MEDS ORDERED: DICY10CA13 PO (18:53)
[2019-07-31] MEDS ORDERED: NS 1,000 ML IV ONE (20:00)
[2019-07-31] MEDS ORDERED: MORPHINE 4 MG/ML 1ML VIAL/SYRINGE (J2270) IV ONE ×2 (20:00→21:00)
[2019-07-31 20:34] LABS: HEMATOCRIT 43.3 % (36.0-47.0); HEMOGLOBIN 14.6 g/dl (12.0-15.5); MEAN CORPUSCULAR HEMOGLOBIN 31.1 pg (27.0-33.0); MEAN CORPUSCULAR HGB CONC 33.7 g/dl (32.0-36.5); MEAN CORPUSCULAR VOLUME 92.3 fl (80.0-96.0); PLATELET COUNT, AUTOMATED 312 10^3/uL (150-450); RED BLOOD COUNT 4.69 10^6/uL (4.00-5.40); WHITE BLOOD COUNT 10.1 10^3/uL (4.0-10.0)
[2019-07-31 20:46] LABS: INR 0.9; PROTHROMBIN TIME 11.9 SECONDS (11.8-14.0)
[2019-07-31 20:47] LABS: PARTIAL THROMBOPLASTIN TIME 24.7 SECONDS (25.0-38.4)
[2019-07-31] MEDS ORDERED: ONDANSETRON 4MG/2ML VIAL IV ONE (21:00)
[2019-07-31 21:02] LABS: ERYTHROCYTE SEDIMENTATION RATE 5 mm/hr (0-30)
[2019-07-31 21:05] LABS: ATYPICAL LYMPH 5 % (0-5); EOSINOPHILS 2 % (0-3); LYMPHOCYTES 35 % (16-44); MONOCYTES 3 % (0-5); NEUTROPHILS 55 % (28-66); PLATELET ESTIMATE NORMAL (NORMAL)
[2019-07-31 21:10] LABS: ALBUMIN 4.1 GM/DL (3.2-5.2); ALT/SGPT 34 U/L (12-78); BILIRUBIN,DIRECT < 0.1 MG/DL (0.0-0.2); BILIRUBIN,TOTAL 0.3 MG/DL (0.2-1.0); C REACTIVE PROTEIN QUANTITATIV < 0.30 MG/DL (0.00-0.30); CK-MB VALUE MASS < 1.0 NG/ML (<3.6); CPK CREATINE PHOSPHOKINASE 91 U/L (26-192); LIPASE 148 U/L (73-393); TOTAL PROTEIN 7.2 GM/DL (6.4-8.2); TROPONIN I < 0.02 NG/ML (< 0.10)
--- NOTE | 2019-07-31 22:37 | REPVR ---
PROCEDURE INFORMATION: Exam: CT Lumbar Spine Without Contrast Exam date and time: 07/31/2019 10:12 PM Age: 53 years old Clinical indication: Low back pain; Additional info: Fell 1 week ago/inc pain/weakness TECHNIQUE: Imaging protocol: Computed tomography images of the lumbar spine without contrast. Radiation optimization: All CT scans at this facility use at least one of these dose optimization techniques: automated exposure control; mA and/or kV adjustment per patient size (includes targeted exams where dose is matched to clinical indication); or iterative reconstruction. COMPARISON: CT Spine, lumbar w/o contrast 04/14/2019 11:51 PM FINDINGS: Vertebrae: There is a grade 2 anterior spondylolisthesis of L5 on S1 secondary to bilateral L5 spondylolysis. Discs/Spinal canal/Neural foramina: Moderate central spinal stenosis L3-L4 and L4-L5. Soft tissues: Unremarkable. IMPRESSION: 1. There is a grade 2 anterior spondylolisthesis of L5 on S1 secondary to bilateral L5 spondylolysis. 2. Moderate central spinal stenosis L3-L4 and L4-L5. 3. No acute findings. Electronically signed by: Camilo Potts On 07/31/2019 22:34:57 PM
[2019-07-31] MEDS ORDERED: methocarbamoL 750 MG TAB PO ONE (23:00)
[2019-08-01 00:21] VITALS: BP 169/73
[2019-08-01] MEDS ORDERED: CYCL5TAB PO (00:36)
[2019-08-01] MEDS ORDERED: NORC1TAB7 PO (00:36)
[2019-08-01] MEDS ORDERED: NORCO 5/325MG TABLET (BULK FOR ED) PO ONE (00:45)
== END 2019-08-01 00:55 | disposition home or self-care (01) ==
LOC: M ED 18:41
DX: M43.17 Spondylolisthesis, lumbosacral region (principal); M48.061 Spinal stenosis, lumbar region without neurogenic claudication; E11.9 Type 2 diabetes mellitus without complications; I10 Essential (primary) hypertension; E78.5 Hyperlipidemia, unspecified; F17.210 Nicotine dependence, cigarettes, uncomplicated; K21.9 Gastro-esophageal reflux disease without esophagitis; Z79.51 Long term (current) use of inhaled steroids; Z79.82 Long term (current) use of aspirin; Z79.84 Long term (current) use of oral hypoglycemic drugs; Z88.0 Allergy status to penicillin; Z88.1 Allergy status to other antibiotic agents; Z88.6 Allergy status to analgesic agent; Z88.8 Allergy status to other drugs, medicaments and biological substances; Z90.710 Acquired absence of both cervix and uterus; Z96.82 Presence of neurostimulator
CPT/HCPCS: 36415; 72131; 80047; 80076; 82550; 82553; 83690; 85025; 85610; 85652; 85730; 86140; 93041; 96361; 96374; 96375; 99284; J2270; J2405

== ENCOUNTER → 2019-08-17 | Outpatient (CLI) | payer OTHER ==
[~2019-08-17] MED LIST changes: +ALB2.5NEB INH; -AMLO1TAB24 PO; +AMLO5TAB6 PO; +ASPI81TA85 PO; -ASPI81TA86 PO; +ATOR40TA75 PO; +CYCL5TAB PO; +FLON1SPR NARES; -GABA-282 PO; +GABA-843 PO; +GABA600T4 PO; +HYDR1CAP25 PO; +LABE100T36 PO; +LISI-538 PO; -LISI10TA22 PO; +LISI10TA4 PO; -LISI20TA33 PO; +NORC1TAB7 PO; +PEG1POW PO; +SUCR1TAB56 PO; +SYST1SOL4 OU; +TRAZ-252 PO; +ZOFR4TAB16 PO
[2019-08-17 12:26] LABS: BASO % 0.5 % (0.0-1.0); EOS # 0.2 10^3/uL (0.0-0.5); EOS % 2.6 % (0.0-3.0); HEMATOCRIT 41.4 % (36.0-47.0); HEMOGLOBIN 13.5 g/dl (12.0-15.5); LYMPH # 2.3 10^3/uL (1.5-5.0); LYMPH % 40.7 % (24.0-44.0); MEAN CORPUSCULAR HGB CONC 32.6 g/dl (32.0-36.5); MONO # 0.3 10^3/uL (0.0-0.8); MONO % 5.9 % (0.0-5.0); NEUTROPHILS # 2.9 10^3/uL (1.5-8.5); PLATELET COUNT, AUTOMATED 248 10^3/uL (150-450); RED BLOOD COUNT 4.36 10^6/uL (4.00-5.40); WHITE BLOOD COUNT 5.8 10^3/uL (4.0-10.0)
[2019-08-17 12:49] LABS: ALBUMIN 3.6 GM/DL (3.2-5.2); ALT/SGPT 25 U/L (12-78); BILIRUBIN,TOTAL 0.5 MG/DL (0.2-1.0); BLOOD UREA NITROGEN 12 MG/DL (7-18); C REACTIVE PROTEIN QUANTITATIV < 0.30 MG/DL (0.00-0.30); CALCIUM LEVEL 9.3 MG/DL (8.5-10.1); CARBON DIOXIDE LEVEL 29 MEQ/L (21-32); CHLORIDE LEVEL 109 MEQ/L (98-107); CREATININE FOR GFR 0.78 MG/DL (0.55-1.30); GLOMERULAR FILTRATION RATE > 60.0 (>51); GLUCOSE, FASTING 81 MG/DL (70-100); POTASSIUM SERUM 4.4 MEQ/L (3.5-5.1); SODIUM LEVEL 144 MEQ/L (136-145); TOTAL PROTEIN 6.4 GM/DL (6.4-8.2)
[2019-08-17 13:25] LABS: ERYTHROCYTE SEDIMENTATION RATE 8 mm/hr (0-30)
== END ==
LOC: M LAB 10:50
PROVIDERS: ATTEND Physician Assistant
DX: Z79.2 Long term (current) use of antibiotics (principal); T84.7XXD Infection and inflammatory reaction due to other internal orthopedic prosthetic devices, implants and grafts, subsequent encounter

== ENCOUNTER → 2019-08-17 | Outpatient (CLI) | payer OTHER ==
[2019-08-17 12:39] LABS: INR 0.98; PROTHROMBIN TIME 12.7 SECONDS (11.8-14.0)
[2019-08-17 12:40] LABS: PARTIAL THROMBOPLASTIN TIME 25.6 SECONDS (25.0-38.4)
[2019-08-17 12:45] LABS: COLLAGEN EPINEPHRINE 81 SECONDS (74-162)
== END ==
LOC: M LAB 10:55
PROVIDERS: ATTEND Physician Assistant
DX: M47.817 Spondylosis without myelopathy or radiculopathy, lumbosacral region (principal)

== ENCOUNTER 2019-08-24 16:57 | Observation (INO) | payer OTHER ==
[~2019-08-24] VITALS: Ht 157.5 cm; Wt 83.4 kg
[~2019-08-24 16:57] MED LIST changes: -ALB2.5NEB INH; +AMLO1TAB24 PO; -AMLO5TAB6 PO; -ASPI81TA85 PO; +ASPI81TA86 PO; -ATOR40TA75 PO; -FLON1SPR NARES; +GABA-282 PO; -GABA-843 PO; -GABA600T4 PO; -LABE100T36 PO; -LISI-538 PO; +LISI10TA22 PO; -LISI10TA4 PO; +LISI20TA33 PO; -PEG1POW PO; -SUCR1TAB56 PO; -SYST1SOL4 OU; -TRAZ-252 PO; -ZOFR4TAB16 PO
[2019-08-24] MEDS ORDERED: MORPHINE 4 MG/ML 1ML VIAL/SYRINGE (J2270) IV ONE (17:45)
[2019-08-24] MEDS ORDERED: NS 1,000 ML IV ONE (17:45)
--- NOTE | 2019-08-24 17:58 | REPVR ---
PROCEDURE INFORMATION: Exam: CT Head Without Contrast Exam date and time: 08/24/2019 5:48 PM Age: 53 years old Clinical indication: Pain; Headache; Additional info: Headache with left sided numbness TECHNIQUE: Imaging protocol: Computed tomography of the head without contrast. Radiation optimization: All CT scans at this facility use at least one of these dose optimization techniques: automated exposure control; mA and/or kV adjustment per patient size (includes targeted exams where dose is matched to clinical indication); or iterative reconstruction. COMPARISON: CT Head without contrast 06/11/2019 12:01 AM FINDINGS: Brain: Small hyperdensity demonstrated in the genu of the left internal capsule may represent a focus of calcification although a small hemorrhagic infarct is not excluded. Correlation with MRI including diffusion-weighted imaging is suggested. Ventricles: Normal. No ventriculomegaly. Bones/joints: Unremarkable. No acute fracture. Sinuses: Inflammatory changes in the ethmoid sinuses. Mastoid air cells: Visualized mastoid air cells are well aerated. Soft tissues: Unremarkable. IMPRESSION: Small hyperdensity demonstrated in the genu of the left internal capsule may represent a focus of calcification although a small hemorrhagic infarct is not excluded. Correlation with MRI including diffusion-weighted imaging is suggested. Electronically signed by: Camilo Potts On 08/24/2019 17:57:43 PM
[2019-08-24 18:19] LABS: BASO % 0.3 % (0.0-1.0); EOS # 0.1 10^3/uL (0.0-0.5); EOS % 0.9 % (0.0-3.0); HEMATOCRIT 40.9 % (36.0-47.0); HEMOGLOBIN 13.9 g/dl (12.0-15.5); LYMPH # 2.6 10^3/uL (1.5-5.0); LYMPH % 30.6 % (24.0-44.0); MEAN CORPUSCULAR HEMOGLOBIN 31.3 pg (27.0-33.0); MEAN CORPUSCULAR VOLUME 92.1 fl (80.0-96.0); MONO # 0.5 10^3/uL (0.0-0.8); MONO % 5.2 % (0.0-5.0); NEUTROPHILS # 5.4 10^3/uL (1.5-8.5); NEUTROPHILS % 62.7 % (36.0-66.0); PLATELET COUNT, AUTOMATED 237 10^3/uL (150-450); RED BLOOD COUNT 4.44 10^6/uL (4.00-5.40); WHITE BLOOD COUNT 8.6 10^3/uL (4.0-10.0)
[2019-08-24 18:30] LABS: INR 0.9; PARTIAL THROMBOPLASTIN TIME 24.6 SECONDS (25.0-38.4); PROTHROMBIN TIME 11.9 SECONDS (11.8-14.0)
[2019-08-24] MEDS ORDERED: ISOVUE-370 76% 100ML VIAL As Ordered ONE (18:34)
[2019-08-24 18:44] LABS: AMPHETAMINES LEVEL URINE NEGATIVE (NEGATIVE); BARBITURATES URINE NEGATIVE (NEGATIVE); BENZODIAZEPINES URINE NEGATIVE (NEGATIVE); CANNABINOIDS URINE NEGATIVE (NEGATIVE); COCAINE METABOLITE URINE NEGATIVE (NEGATIVE); METHADONE URINE NEGATIVE (NEGATIVE); OPIATES URINE NEGATIVE (NEGATIVE); PHENCYCLIDINE URINE NEGATIVE (NEGATIVE)
[2019-08-24 18:53] LABS: CK-MB VALUE MASS 1.1 NG/ML (<3.6); CPK CREATINE PHOSPHOKINASE 83 U/L (26-192); MB/CK RELATIVE INDEX 1.33 (< OR =4); TROPONIN I < 0.02 NG/ML (< 0.10)
--- NOTE | 2019-08-24 18:56 | REPVR ---
PROCEDURE INFORMATION: Exam: CT Angiography Head With Contrast Exam date and time: 08/24/2019 6:49 PM Age: 53 years old Clinical indication: Abnormal findings; Abnormal CT of the head; Additional info: Abnormal CT, stroke symptoms, unable to have mri TECHNIQUE: Imaging protocol: Computed tomography angiography of the head with intravenous contrast. 3D rendering: MIP and/or 3D reconstructed images were created by the technologist. Radiation optimization: All CT scans at this facility use at least one of these dose optimization techniques: automated exposure control; mA and/or kV adjustment per patient size (includes targeted exams where dose is matched to clinical indication); or iterative reconstruction. Contrast material: ISOVUE 370; Contrast volume: 75 ml; Contrast route: INTRAVENOUS (IV); COMPARISON: CT Head without contrast 08/24/2019 5:39 PM FINDINGS: Anterior cerebral arteries: No occlusion or significant stenosis. No aneurysm. Right internal carotid artery: Intracranial segment is patent with no significant stenosis or occlusion. No aneurysm. Right middle cerebral artery: No occlusion or significant stenosis. No aneurysm. Right posterior cerebral artery: No occlusion or significant stenosis. No aneurysm. Right vertebral artery: No occlusion or significant stenosis. No aneurysm. Left internal carotid artery: Intracranial segment is patent with no significant stenosis or occlusion. No aneurysm. Left middle cerebral artery: No occlusion or significant stenosis. No aneurysm. Left posterior cerebral artery: No occlusion or significant stenosis. No aneurysm. Left vertebral artery: No occlusion or significant stenosis. No aneurysm. Basilar artery: No occlusion or significant stenosis. No aneurysm. IMPRESSION: No large vessel stenosis or occlusion. Electronically signed by: Camilo Potts On 08/24/2019 18:55:52 PM
[2019-08-24] MEDS ORDERED: LABETALOL 100MG/20ML VIAL IV STA (19:26)
[2019-08-24] MEDS ORDERED: LISI20TA33 PO (20:42)
[2019-08-24] MEDS ORDERED: GABA600T4 PO (20:45)
[2019-08-24] MEDS ORDERED: SYST1SOL4 OU (20:45)
[2019-08-24] MEDS ORDERED: GABA-282 PO (20:45)
[2019-08-24] MEDS ORDERED: ZOFR4TAB16 PO (20:51)
[2019-08-24] MEDS ORDERED: ALB2.5NEB INH (20:51)
[2019-08-24] MEDS ORDERED: FLON1SPR NARES (20:51)
[2019-08-24] MEDS ORDERED: PEG1POW PO (20:51)
[2019-08-24] MEDS ORDERED: TRAZ-252 PO (20:51)
[2019-08-24] MEDS ORDERED: SUCR1TAB56 PO (20:51)
[2019-08-24] MEDS ORDERED: ATOR40TA75 PO (20:54)
[2019-08-24] MEDS ORDERED: FLUTICASONE PROP 0.05% NASAL SPRAY 16 GM (FLONASE) NARES SCH (21:00)
[2019-08-24] MEDS ORDERED: MELOXICAM (MOBIC) 7.5 MG TAB PO SCH (21:00)
[2019-08-24] MEDS ORDERED: traZODone 50 MG TAB PO SCH (21:00)
[2019-08-24] MEDS ORDERED: DOXYCYCLINE HYCLATE 100MG TABLET PO SCH (21:00)
[2019-08-24] MEDS ORDERED: HumaLOG INSULIN (NovoLOG) PER UNIT SC SCH (21:00)
[2019-08-24] MEDS ORDERED: CETIRIZINE (ZyrTEC) 5 MG/5 ML UDC DYE FREE PO SCH (21:00)
[2019-08-24] MEDS ORDERED: ASPIRIN 81 MG ENTERIC TAB PO SCH (21:00)
[2019-08-24] MEDS ORDERED: GABAPENTIN 300 MG CAP PO SCH (21:00)
--- NOTE | 2019-08-24 22:12 | REPVR ---
PROCEDURE INFORMATION: Exam: US Duplex Bilateral Extracranial Arteries Exam date and time: 08/24/2019 10:03 PM Age: 53 years old Clinical indication: Other: TIA; Additional info: CVA TECHNIQUE: Imaging protocol: Real-time Duplex ultrasound scan of the bilateral carotid and vertebral arteries combining sahu scale, color Doppler and spectral waveform analysis. Bilateral exam. COMPARISON: CT Head without contrast 08/24/2019 5:39 PM FINDINGS: Right common carotid artery: Unremarkable. No occlusion or stenosis. Waveforms are normal. Right internal carotid artery: Unremarkable. No occlusion or stenosis. Waveforms are normal. Right ICA/CCA ratio: Within normal limits. Right external carotid artery: No stenosis in the origin. Right vertebral artery: Unremarkable. Antegrade flow. Left common carotid artery: Unremarkable. No occlusion or stenosis. Waveforms are normal. Left internal carotid artery: Unremarkable. No occlusion or stenosis. Waveforms are normal. Left ICA/CCA ratio: Within normal limits. Left external carotid artery: No stenosis in the origin. Left vertebral artery: Unremarkable. Antegrade flow. IMPRESSION: No carotid arterial stenosis. REFERENCES: SRU CRITERIA. The degree of internal carotid artery stenosis is based on criteria defined by the Society of Radiologists in Ultrasound (SRU). Normal is no stenosis. Mild is less than 50% stenosis. Moderate is 50-69% stenosis. Severe is greater than 69% stenosis to near occlusion. Near occlusion is a markedly narrowed lumen. Total occlusion is no detectable patent lumen. Electronically signed by: Camilo Potts On 08/24/2019 22:11:45 PM
[2019-08-24 22:30] VITALS: BP 157/93
[2019-08-24] MEDS ORDERED: GLUCOSE 4GM CHEW TABLET PO PRN (23:00)
[2019-08-24] MEDS ORDERED: ALBUTEROL 90 MCG/ACT 8GM HFA INHALER INH PRN (23:00)
[2019-08-24] MEDS ORDERED: NORCO, ANEXSIA 5/325MG TABLET (HYDROcodone/ACETAMINOPHEN) PO PRN (23:00)
[2019-08-24] MEDS ORDERED: DEXTROSE 50% 50 ML SYRINGE IV PRN (23:00)
[2019-08-24] MEDS ORDERED: ALBUTEROL SULFATE 2.5 MG/0.5 ML INH NEB SOLN INH PRN (23:00)
[2019-08-24] MEDS ORDERED: GLUCAGON INJ 1MG VIAL SC PRN (23:00)
[2019-08-24] MEDS ORDERED: ONDANSETRON 4 MG TAB PO PRN (23:00)
[2019-08-25] VITALS (7 sets, daily range): BP systolic 134–147; BP diastolic 71–94
[2019-08-25] MEDS: OMEPRAZOLE 20 MG CAP PO SCH ×2 (00:23→08:02)
[2019-08-25] MEDS: busPIRone 5 MG TAB PO SCH ×2 (00:24→08:00)
--- NOTE | 2019-08-25 01:33 | HPEPDOC ---
[facility] Medical History & Physical Date of Admission Aug 24, 2019 Date of Service: Aug 24, 2019 Other Provider PCP: Kuldeep Ocasio Attending Physician: HENRIQUE HERNANDEZ DO History and Physical CHIEF COMPLAINT: Headache, right-sided face and arm paresthesia, right arm weakness. HISTORY OF PRESENT ILLNESS: Mrs. Graham is a 53-year-old female who states that she was at home when she suddenly developed paresthesias of her right face and arm. She states that she checked her blood glucose level at home, and found it to be within normal limits. She then checked her blood pressure and it was 213/121, and she said that it dropped very low after that time, and her monitor read and 62/26, but her symptoms have not changed at that time. She knew something was wrong therefore she called the ambulance and came to the emergency department for further evaluation. CODE STATUS: Full code PAST MEDICAL HISTORY: Chronic back pain with placement of a dorsal column stimulator Diabetes mellitus type 2 Hypertension Hyperlipidemia Reflex sympathetic dystrophy "it's switched from my left arm to my right" GERD Seasonal allergies Depression Anxiety Neuropathy Sciatica Anemia COPD PAST SURGICAL HISTORY: Hysterectomy Dorsal column stimulator Right carpal tunnel SOCIAL HISTORY: Current Smoker, no alcohol or illicit drug use. FAMILY HISTORY: No family history of stroke REVIEW OF SYSTEMS: Constitutional: Patient denies fevers, chills, night sweats, recent weight gain/loss. HEENT: Patient denies blurred or double vision, transient visual disturbances, postnasal drip, epistaxis, sore throat, difficulty chewing or swallowing food. Cardiovascular: Patient denies chest discomfort/pain, palpitations, exertional dyspnea, orthopnea, edema of the extremities, claudication. Respiratory: Patient denies dyspnea, wheezing, cough, hemoptysis, sputum produ ction. Gastrointestinal: Patient denies nausea, vomiting, diarrhea, constipation, abdominal pain, melena, hematochezia, hematemesis, jaundice. Neuro: Admits to paresthesias of the right face, right arm, and weakness of the right arm. PHYSICAL EXAMINATION: General: Awake, alert, oriented 3. HEENT: Head normocephalic atraumatic, conjunctiva are pink, sclera are nonicteric, buccal mucosa is pink and moist with no lesions in the oropharynx. Hearing is grossly intact to conversation. Respiratory: Clear to auscultation bilaterally with no wheezes, rales, or rhonchi. Cardiovascular: Regular rate and rhythm, with no rubs, gallops, or murmur. Abdomen: Soft, nontender, nondistended, no hepatosplenomegaly appreciated. Bowel sounds present. Extremities: 2+ pulses in the radial and dorsalis pedis bilaterally. No evidence of clubbing or cyanosis. Neuro: She does not have any difficulty with word finding a word substitution. She does have paresthesias to light touch of the right face including the forehead and the jaw, and the right arm. Apparently she does not the pa resthesias in her right neck or clavicle. Muscle strength is 4/5 in the right upper extremity, 5/5 in the left upper extremity. Muscle strength is 5/5 in the bilateral lower extremities. She does not have any paresthesias in the bilateral lower extremities. Finger to nose is coordinated bilaterally. Extraocular movements are intact. Visual saldana are intact to confrontation. IMAGING: -CT of the head shows "small hyperdensity in the genuine of the left internal capsule which may represent a focus of calcification although a small hemorrhagic infarct is not excluded." -She is unable to have an MRI because of her dorsal columns stimulator -CTA is essentially unremarkable, please see report for full details. -Carotid Doppler ultrasound demonstrates no arterial stenosis ASSESSMENT/PLAN: Suspicion for acute hemorrhagic CVA -Admit to PCU, neurochecks every 2 hours, repeat CT scan in the morning. We will attempt to keep her blood pressure at a target of 1:30/80. She received a dose of IV labetalol in the ED, and her blood pressure came down nicely. Will try to maintain with PO labetalol 200 mg every 8 hours with hold parameters for SBP less than 130, and will continue with her home dose of lisinopril. Continue home dose of atorvastatin. Hypertension -Continue home dose of lisinopril, and by mouth labetalol as indicated above. Diabetes mellitus type 2 -Hold home PO meds. Started on sliding scale insulin before meals and at bedtime Chronic pain with placement of dorsal column stimulator, and RSD -The patient is on chronic daily doxycycline as she previously had an infection of her dorsal column stimulator. -Continue with home dose of [place], Bentyl, gabapentin, meloxicam Chronic abdominal pain with intermittent nausea -Continue home dose of Bentyl and Zofran, with PRN polyethylene glycol for constipation Depression and anxiety -Continue with home dose of buspirone, duloxetine, trazodone Seasonal allergies -Continue home dose of azelastine nasal spray PRN, Flonase PRN, and cetirizine GERD -Continue with home dose of sucralfate, omeprazole DVT prophylaxis -Teds and sequentials Vital Signs Vital Signs Date Time Temp Pulse Resp B/P (MAP) Pulse Ox O2 Delivery O2 Flow Rate FiO2 08/25/19 00:53 4 08/24/19 22:30 96.6 90 157/93 (114) 100 Room Air Laboratory Data Labs 24H Laboratory Tests 2 08/24/19 17:55: Immature Granulocyte % (Auto) 0.3, Neutrophils (%) (Auto) 62.7, Lymphocytes (%) (Auto) 30.6, Monocytes (%) (Auto) 5.2H, Eosinophils (%) (Auto) 0.9, Basophils (%) (Auto) 0.3, Neutrophils # (Auto) 5.4, Lymphocytes # (Auto) 2.6, Monocytes # (Auto) 0.5, Eosinophils # (Auto) 0.1, Basophils # (Auto) 0.0, Nucleated Red Blood Cells % (auto) 0.0, Prothrombin Time 11.9, Prothromb Time International Ratio 0.90, Activated Partial Thromboplast Time 24.6L, Urine Color STRAW, Urine Appearance CLEAR, Urine pH 7.0, Urine Specific [place] 1.003, Urine Protein NEGATIVE, Urine Glucose (UA) NEGATIVE, Urine Ketones TRACEH, Urine Blood NEGATIVE, Urine Nitrite NEGATIVE, Urine Bilirubin NEGATIVE, Urine Urobilinogen 0.2, Urine Leukocyte Esterase NEGATIVE, Urine WBC (Auto) 0, Urine RBC (Auto) 1, Urine Hyaline Casts (Auto) 0, Urine Bacteria (Auto) NEGATIVE, Urine Squamous Epithelial Cells 1, Urine Sperm (Auto) , Total Creatine Kinase 83, Creatine Kinase MB 1.1, Creatine Kinase MB Relative Index 1.33, Troponin I < 0.02, Urine Opiates Screen NEGATIVE, Urine Methadone Screen NEGATIVE, Urine Barbiturates Screen NEGATIVE, Urine Phencyclidine Screen NEGATIVE, Urine Amphetamines Screen NEGATIVE, Urine Benzodiazepines Screen NEGATIVE, Urine Cocaine Metabolite Screen NEGATIVE, Urine Cannabinoids Screen NEGATIVE 08/24/19 18:22: POC Glucose (Misc Panel) 86, POC Sodium (Misc Panel) 142, POC Potassium (Misc Panel) 3.7, POC Chloride (Misc Panel) 105, POC Total CO2 (Misc Panel) 22.0L, POC Blood Urea Nitrogen (Misc Panel 6L, POC Ionized Calcium (Misc Panel) 4.4L, POC Creatinine (Misc Panel) 0.6, POC Hematocrit (Misc Panel) 41.0 08/25/19 00:16: Bedside Glucose (Misc Panel) 152H CBC/BMP Laboratory Tests 08/24/19 17:55 Home Medications Scheduled Aspirin (Aspir 81) 81 Mg Tab, 162 MG PO QHS Atorvastatin Calcium (Atorvastatin Calcium) 40 Mg Tablet, 40 MG PO DAILY Azelastine HCl (Azelastine HCl) 137 Mcg/0.137 Ml [place].pump, 2 SPRAYS NA DAILY Buspirone HCl (Buspirone HCl) 15 Mg Tablet, 15 MG PO TID Cetirizine HCl (Cetirizine HCl) 10 Mg Chw, 10 MG PO QHS Dicyclomine HCl (Dicyclomine HCl) 10 Mg Capsule, 10 MG PO TID TAKE BEFORE MEALS Doxycycline Monohydrate (Doxycycline Monohydrate) 100 Mg Capsule, 100 MG PO QHS Duloxetine Hcl (Duloxetine HCl) 60 Mg Capsule.dr, 60 MG PO DAILY Ferrous Sulfate (Ferrous Sulfate) 324 Mg Tab, 324 MG PO DAILY TAKES AT NOON Fluticasone Propionate (Flonase Allergy Relief) 9.9 Ml [place].susp, 1 SPRAY NARES QHS Fluticasone/Vilanterol (Breo Ellipta 200-25 Mcg INH) 1 Inh Inh, 1 PUFF INH DAILY Gabapentin (Gabapentin) 300 Mg Capsule, 300 MG PO TID Gabapentin (Gabapentin) 600 Mg Tablet, 600 MG PO QHS TAKES WITH 300MG FOR TOTAL OF 900MG QHS, NEW MEDICATION HAS NOT STARTED THIS QHS DOSE Lisinopril (Lisinopril) 20 Mg Tablet, 20 MG PO DAILY Meloxicam (Meloxicam) 7.5 Mg Tablet, 7.5 MG PO QPM Metformin HCl (Metformin HCl) 500 Mg Tab, 500 MG PO BID Omeprazole (Omeprazole) 40 Mg Cap, 40 MG PO BID Polyethylene Glycol 3350 (Polyethylene Glycol 3350) 17 Gm Powd.pack, 17 GRAM PO DAILY for constipation Raloxifene HCl (Raloxifene HCl) 60 Mg Tablet, 60 MG PO DAILY Sucralfate (Sucralfate) 1 Gm Tablet, 1 GM PO BID Trazodone HCl (Trazodone HCl) 50 Mg Tablet, 50 MG PO QHS Scheduled PRN Albuterol Sulfate (Ventolin Hfa) 108 Mcg/Act Aer, 2 PUFFS INH Q6H PRN for COUGH Albuterol Sulfate (Albuterol Sulfate) 2.5 Mg/0.5 Ml Vial.neb, 2.5 MG INH Q6H PRN for SHORTNESS OF BREATH Hydrocodone/Acetaminophen ([place] 5-325 Tablet) 1 Each Tablet, 1 TAB PO TIDP PRN for pain Ondansetron HCl (Zofran) 4 Mg Tablet, 4 MG PO TID PRN for NAUSEA Propylene Glycol/Peg 400/Pf (Systane 0.3-0.4% Eye Drop) 1 Each Droperette, 1 DROP OU QID PRN for DRY EYES Allergies Coded Allergies: Penicillins (Verified Allergy, Intermediate, rash/hives, 05/17/19) Quinolones (Verified Allergy, Mild, RASH, 10/29/18) cefoxitin (Verified Allergy, Mild, rash, 05/17/19) clindamycin (Verified Allergy, Mild, RASH, 10/29/18) gentamicin (Verified Allergy, Mild, rash, 05/17/19) povidone-iodine (Verified Allergy, Mild, RASH/BLISTERS, 10/29/18) carisoprodol (Verified Allergy, Unknown, 10/29/18) fluticasone (Verified Adverse Reaction, Intermediate, THROAT BLISTERS, 05/17/19) salmeterol (Verified Adverse Reaction, Intermediate, THROAT BLISTERS, ) epinephrine (Verified Adverse Reaction, Mild, tachycardia, 05/17/19) AN EXPECTED REACTION meperidine (Verified Adverse Reaction, Mild, tachycardia, 05/17/19) zolpidem (Verified Adverse Reaction, Mild, BLISTERS, 10/29/18) A-FIB/CHADSVASC A-FIB History Current/History of A-Fib/PAF?: No Current PO Anticoag Therapy: HENRIQUE Malin DO Aug 25, 2019 01:33
[2019-08-25 05:08] LABS: HEMATOCRIT 36.8 % (36.0-47.0); HEMOGLOBIN 12.1 g/dl (12.0-15.5); MEAN CORPUSCULAR HEMOGLOBIN 30.9 pg (27.0-33.0); MEAN CORPUSCULAR HGB CONC 32.9 g/dl (32.0-36.5); MEAN CORPUSCULAR VOLUME 94.1 fl (80.0-96.0); PLATELET COUNT, AUTOMATED 209 10^3/uL (150-450); RED BLOOD COUNT 3.91 10^6/uL (4.00-5.40); WHITE BLOOD COUNT 6.4 10^3/uL (4.0-10.0)
[2019-08-25 05:30] LABS: BLOOD UREA NITROGEN 10 MG/DL (7-18); CALCIUM LEVEL 8.7 MG/DL (8.5-10.1); CARBON DIOXIDE LEVEL 26 MEQ/L (21-32); CHLORIDE LEVEL 111 MEQ/L (98-107); CREATININE FOR GFR 0.83 MG/DL (0.55-1.30); GLOMERULAR FILTRATION RATE > 60.0 (>51); GLUCOSE, FASTING 101 MG/DL (70-100); POTASSIUM SERUM 3.8 MEQ/L (3.5-5.1); SODIUM LEVEL 145 MEQ/L (136-145)
[2019-08-25] MEDS: LABETALOL 200 MG TAB PO SCH ×2 (05:56→14:30)
[2019-08-25] MEDS: HumaLOG INSULIN (NovoLOG) PER UNIT SC SCH ×3 (07:30→12:42)
[2019-08-25] MEDS: DICYCLOMINE 10 MG CAP PO SCH ×2 (08:00→12:42)
[2019-08-25] MEDS ORDERED: SUCRALFATE 1 GM TAB PO SCH (08:00)
--- NOTE | 2019-08-25 08:20 | REPVR ---
PROCEDURE INFORMATION: Exam: CT Head Without Contrast Exam date and time: 08/25/2019 6:00 AM Age: 53 years old Clinical indication: Pain; Weakness, extremity; Left; Headache; Patient HX: Follow-up; Additional info: CVA TECHNIQUE: Imaging protocol: Computed tomography of the head without contrast. Radiation optimization: All CT scans at this facility use at least one of these dose optimization techniques: automated exposure control; mA and/or kV adjustment per patient size (includes targeted exams where dose is matched to clinical indication); or iterative reconstruction. COMPARISON: 1. CT Head without contrast 08/24/2019 5:[address] Head without contrast 06/11/2019 12:01:54 AM FINDINGS: Brain: Subtle hyperdensity in the region of the genu of the left internal capsule appears less conspicuous on the axial images and stable on the coronal images and also appears stable when compared to an older head CT of 06/11/2019. This is most consistent with minimal physiologic calcification. There is no evidence of acute intracranial hemorrhage or mass effect. There is preservation of the sahu-white matter differentiation. The ventricles and extra-axial CSF spaces are stable in size. Ventricles: Unremarkable. No ventriculomegaly. Bones/joints: Bones are stable. No acute fracture. Sinuses: Small retention cyst along the posterior wall of the left maxillary sinus. Opacification of an ethmoid air cell on the left. No acute air-fluid levels. Mastoid air cells: Visualized mastoid air cells are well aerated. Soft tissues: Unremarkable. IMPRESSION: Essentially stable head CT. Subtle hyperdensity in the region of the genu of the left internal capsule appears to represent minimal physiologic calcification. No evidence of acute intracranial hemorrhage or mass effect. Electronically signed by: Luis Ahn On 08/25/2019 08:19:31 AM
[2019-08-25] MEDS ORDERED: ATORVASTATIN 20 MG TAB PO SCH (09:00)
[2019-08-25] MEDS ORDERED: DULoxetine 30 MG CAP (CYMBALTA) PO SCH (09:00)
[2019-08-25] MEDS ORDERED: ENOXAPARIN 40MG/0.4ML SYRINGE (J1650 PER 10MG) SC SCH (09:00)
[2019-08-25] MEDS ORDERED: AZELASTINE 137MCG NASAL SPY 30 ML (ASTELIN) SCH (09:00)
[2019-08-25] MEDS ORDERED: MIRALAX *UNIT DOSE* 17GM PACKET PO SCH (09:00)
[2019-08-25] MEDS ORDERED: GABAPENTIN 300 MG CAP PO SCH (09:00)
[2019-08-25] MEDS ORDERED: SLF 3 ML SYR IV PRN (12:00)
[2019-08-25] MEDS ORDERED: SLF 3 ML SYR IV SCH (14:00)
--- NOTE | 2019-08-25 15:22 | ECHO ---
DATE OF PROCEDURE: 08/25/2019 REFERRING PHYSICIAN: Dr. Yan INDICATION: Cerebrovascular accident HEIGHT: 157 cm. WEIGHT: 83 kg. DIMENSIONS: IVS - 0.8 LV - 4.6 LVPW - 1.0 LA - 3.4 Aorta - 2.6 IVC - 1.5 Mitral E wave velocity - 102, A-wave - 90. E prime septal - 8.7 E prime lateral - 12.6 FINDINGS: The study is of acceptable technical quality. The patient is in sinus rhythm. Normal LV size with preserved LV systolic function, estimated LVEF around 60-65%. No segmental wall motion abnormalities are appreciated. Right ventricle is also normal size and systolic function. Both atria appear normal. All four cardiac valves were reasonably well seen and appear normal. No pericardial effusion is present. Inferior vena cava is of normal caliber and appropriately collapses with inspiration indicative of normal central venous pressure. Aortic root, aortic arch and visualized segment of abdominal aorta all appear normal. Doppler interrogation reveals competent aortic and mitral valves. There is trace tricuspid insufficiency. Calculated pulmonary artery pressure is in high 20s, which is on upper limits of normal values. Pulmonic valve is functionally competent. Mitral inflow pattern and tissue Doppler imaging of mitral annulus revealed a normal diastolic functional left ventricle. Injection of agitated saline through peripheral vein indicates no evidence for shunt across atrial or ventricular septum. CONCLUSION: 1. Study is of acceptable technical quality, the patient is in sinus rhythm. 2. Normal LV size, systolic and diastolic function. 3. No significant valvular disease. 4. Normal central venous pressure and normal pulmonary artery pressure. 5. Negative "bubble study." COMMENTS: Subacute bacterial endocarditis (SBE) prophylaxis is not indicated. No findings to explain etiology of cerebrovascular accident (CVA).
--- NOTE | 2019-08-25 15:39 | DS.PDOC ---
Discharge Summary General Date of Admission Aug 24, 2019 at 16:58 Date of Discharge 08/25/2019 Discharge Summary PROCEDURES PERFORMED DURING STAY: [None]. ADMITTING DIAGNOSES: 1. Suspicion for acute hemorrhagic CVA 2. Hypertension 3. Diabetes mellitus type 2 4. Chronic pain with placement of dorsal column stimulator, and RSD 5. Chronic abdominal pain with intermittent nausea 6. Depression and anxiety 7. Seasonal allergies 8. GERD DISCHARGE DIAGNOSES: 1. TIA 2. Hypertension 3. Diabetes mellitus type 2 4. Chronic pain with placement of dorsal column stimulator, and RSD 5. Chronic abdominal pain with intermittent nausea 6. Depression and anxiety 7. Seasonal allergies 8. GERD COMPLICATIONS/CHIEF COMPLAINT: CVA. HISTORY OF PRESENT ILLNESS: Patient is a 53 yo female who reported sudden onset paresthesias of her right face and arm on 08/24/2019. It was noted that she checked her blood glucose at that time which was wnl. She reported that her blood pressure at that time was 213/121 but it dropped very low after that time with BP 62/26 without symptom changes. Pt was noted to called the ambulance and came to [facility] ER for further evaluation. HOSPITAL COURSE: Her CT head upon admission showed a small hyperdensity in left internal capsule genu which may represent a focus of calcification but a small hemorrhagic infarct is not excluded. In ED first recorded BP was 179/80. She received IV labetalol in ED and her blood pressure was noted to come down nicely. Patient was admitted with neuro checks every 2 hours, PO labetalol to keep blood pressure at a target of 130/80 with holding parameters SBP<130; home lisinopril was continued, atorvastatin, and aspirin was continued. She was noted to have +4/5 in RUE upon admission. She reported that she never had similar symptoms prior. Reported had 7 spinal column stimulator placed/replacement with last one placed 3 years ago which she reported has been working well without problems. Reported her right face and arm felt like she was injected with novocaine as in dental office which started around 3:30PM on 08/24/2019. Pt denies any arrhythmia or heart history besides hypertension. Repeat CT head 08/25/2019 showed physiologic calcification in left internal capsule genu region. Pt reported complete resolution of symptoms; denies any vision field loss/vision changes, hearing changes, numbness, tingling, loss of sensation, or extremity weakness. Echo was done. Discussed with Dr. Nova 08/25/2019 PM, patient will be discharged home and continue atorvastatin and start labetalol low dose with blood pressure goal lower than 130/80. It was determined that patient is stable for discharge with outpatient referral to Dr. Nova and continue home med aspirin and atorvastatin. DISCHARGE MEDICATIONS: Please see below. ALLERGIES: Please see below. PHYSICAL EXAMINATION ON DISCHARGE: VITAL SIGNS: Please see below. GENERAL: Alert and awake, not in acute distress HEENT: Head normocephalic atraumatic, no sclera icterus, mucosa is pink and moist. Hearing grossly intact. EOMI. No obvious facial palsy. NECK: supple CARDIOVASCULAR EXAMINATION: RRR, no murmur, regular S1 and S2 RESPIRATORY EXAMINATION: CTA b/l, no rales, wheezing, or rhonchi. Normal air entry ABDOMINAL EXAMINATION: Soft, mildly obese abdomen, no guarding or distention, no tenderness upon palpation in all 4 quadrants. Bowel sound aus in all 4 quadr ants EXTREMITIES: +5/5 in all 4 extremities. No tremors noted SKIN: normal skin turgor and temperature NEUROLOGICAL EXAMINATION: CN2-12 grossly intact. No dysarthria, dysgraphia, or hemineglect with drawing clock test. No paresthesia noted upon touch in face or extremities. No upper extremity motor drift for 10 seconds b/l. No lower extremity motor drift for 5 seconds b/l. PSYCHIATRIC EXAMINATION: Mood appropriate to situation LABORATORY DATA: Please see below. IMAGING: CT head 08/24/2019 "Small hyperdensity in the genu of left internal capsule may represent a focus of calcification although a small hemorrhagic infarct is not excluded" CTA head 08/24/2019 showed no large vessel stenosis or occlusion Bilateral duplex carotid US 08/24/2019 showed no carotid arterial stenosis CT head 08/25/2019 "Stable head [address]. Subtle hyperdensity in region of left internal capsule genu appears to represent minimal physiologic calcification. No evidence of acute intracranial hemorrhage/mass effect." Echo heart 08/25/2019 showed pt in sinus rhythm. "Normal LV size, systolic and diastolic function. No significant valvular disease. Normal CVP and normal pulmonary artery pressure. Negative bubble study" PROGNOSIS:Good ACTIVITY: [As tolerated]. DIET: [Low fat low cholesterol] DISCHARGE PLAN AND INSTRUCTIONS: 1. Follow up with PCP in 7 days 2. Referred to Dr.Ali as outpatient 3. Return to ER or contact provider if symptoms re-occur ITEMS TO FOLLOWUP ON ON OUTPATIENT: 1. TIA 2. Minimal calcification in the region of left internal capsule genu 3. Echo report result DISCHARGE CONDITION: [Stable]. TIME SPENT ON DISCHARGE: 35 minutes. I have personally evaluated and examined the patient. Discussed with resident/student regarding plan of care and agree with the above assessment and plan. Vital Signs/I&Os Vital Signs Date Time Temp Pulse Resp B/P (MAP) Pulse Ox O2 Delivery O2 Flow Rate FiO2 08/25/19 14:35 96.8 84 18 138/84 (102) 96 Room Air I&O- Last 24 Hours up to 6 AM 08/25/19 06:00 Intake Total 861 ml Balance 861 ml Laboratory Data Labs 24H Laboratory Tests 2 08/24/19 17:55: Immature Granulocyte % (Auto) 0.3, Neutrophils (%) (Auto) 62.7, Lymphocytes (%) (Auto) 30.6, Monocytes (%) (Auto) 5.2H, Eosinophils (%) (Auto) 0.9, Basophils (%) (Auto) 0.3, Neutrophils # (Auto) 5.4, Lymphocytes # (Auto) 2.6, Monocytes # (Auto) 0.5, Eosinophils # (Auto) 0.1, Basophils # (Auto) 0.0, Nucleated Red Blood Cells % (auto) 0.0, Prothrombin Time 11.9, Prothromb Time International Ratio 0.90, Activated Partial Thromboplast Time 24.6L, Urine Color STRAW, Urine Appearance CLEAR, Urine pH 7.0, Urine Specific Julian 1.003, Urine Protein NEGATIVE, Urine Glucose (UA) NEGATIVE, Urine Ketones TRACEH, Urine Blood NEGA TIVE, Urine Nitrite NEGATIVE, Urine Bilirubin NEGATIVE, Urine Urobilinogen 0.2, Urine Leukocyte Esterase NEGATIVE, Urine WBC (Auto) 0, Urine RBC (Auto) 1, Urine Hyaline Casts (Auto) 0, Urine Bacteria (Auto) NEGATIVE, Urine Squamous Epithelial Cells 1, Urine Sperm (Auto) , Total Creatine Kinase 83, Creatine Kinase MB 1.1, Creatine Kinase MB Relative Index 1.33, Troponin I < 0.02, Urine Opiates Screen NEGATIVE, Urine Methadone Screen NEGATIVE, Urine Barbiturates Screen NEGATIVE, Urine Phencyclidine Screen NEGATIVE, Urine Amphetamines Screen NEGATIVE, Urine Benzodiazepines Screen NEGATIVE, Urine Cocaine Metabolite Screen NEGATIVE, Urine Cannabinoids Screen NEGATIVE 08/24/19 18:22: POC Glucose (Misc Panel) 86, POC Sodium (Misc Panel) 142, POC Potassium (Misc Panel) 3.7, POC Chloride (Misc Panel) 105, POC Total CO2 (Misc Panel) 22.0L, POC Blood Urea Nitrogen (Misc Panel 6L, POC Ionized Calcium (Misc Panel) 4.4L, POC Creatinine (Misc Panel) 0.6, POC Hematocrit (Misc Panel) 41.0 08/25/19 00:16: Bedside Glucose (Misc Panel) 152H 08/25/19 04:45: Nucleated Red Blood Cells % (auto) 0.0, Anion Gap 8, Glomerular Filtration Rate > 60.0, Calcium Level 8.7 08/25/19 12:39: Bedside Glucose (Misc Panel) 129H CBC/BMP Laboratory Tests 08/24/19 17:55 08/25/19 04:45 FSBS Laboratory Tests Test 08/25/19 00:16 08/25/19 12:39 Range/Units Bedside Glucose (Misc Panel) 152 129 70-105 MG/DL Discharge Medications Scheduled Aspirin (Aspir 81) 81 Mg Tab, 162 MG PO QHS, (Reported) Atorvastatin Calcium (Atorvastatin Calcium) 40 Mg Tablet, 40 MG PO DAILY, (Reported) Azelastine HCl (Azelastine HCl) 137 Mcg/0.137 Ml [place].pump, 2 SPRAYS NA DAILY, (Reported) Buspirone HCl (Buspirone HCl) 15 Mg Tablet, 15 MG PO TID, (Reported) Cetirizine HCl (Cetirizine HCl) 10 Mg Chw, 10 MG PO QHS, (Reported) Dicyclomine HCl (Dicyclomine HCl) 10 Mg Capsule, 10 MG PO TID, (Reported) TAKE BEFORE MEALS Doxycycline Monohydrate (Doxycycline Monohydrate) 100 Mg Capsule, 100 MG PO QHS, (Reported) Duloxetine Hcl (Duloxetine HCl) 60 Mg Capsule.dr, 60 MG PO DAILY, (Reported) Ferrous Sulfate (Ferrous Sulfate) 324 Mg Tab, 324 MG PO DAILY, (Reported) TAKES AT NOON Fluticasone Propionate (Flonase Allergy Relief) 9.9 Ml [place].susp, 1 SPRAY NARES QHS, (Reported) Fluticasone/Vilanterol (Breo Ellipta 200-25 Mcg INH) 1 Inh Inh, 1 PUFF INH DAILY, (Reported) Gabapentin (Gabapentin) 300 Mg Capsule, 300 MG PO TID, (Reported) Gabapentin (Gabapentin) 600 Mg Tablet, 600 MG PO QHS, (Reported) TAKES WITH 300MG FOR TOTAL OF 900MG QHS, NEW MEDICATION HAS NOT STARTED THIS QHS DOSE Labetalol HCl (Labetalol HCl) 100 Mg Tablet, 1 TAB PO BID Check blood pressure before taking labetalol. Do not take if systolic blood pressure<130 or diastolic blood pressure<80. Lisinopril (Lisinopril) 20 Mg Tablet, 20 MG PO DAILY, (Reported) Meloxicam (Meloxicam) 7.5 Mg Tablet, 7.5 MG PO QPM, (Reported) Metformin HCl (Metformin HCl) 500 Mg Tab, 500 MG PO BID, (Reported) Omeprazole (Omeprazole) 40 Mg Cap, 40 MG PO BID, (Reported) Polyethylene Glycol 3350 (Polyethylene Glycol 3350) 17 Gm Powd.pack, 17 GRAM PO DAILY for constipation, (Reported) Raloxifene HCl (Raloxifene HCl) 60 Mg Tablet, 60 MG PO DAILY, (Reported) Sucralfate (Sucralfate) 1 Gm Tablet, 1 GM PO BID, (Reported) Trazodone HCl (Trazodone HCl) 50 Mg Tablet, 50 MG PO QHS, (Reported) Scheduled PRN Albuterol Sulfate (Ventolin Hfa) 108 Mcg/Act Aer, 2 PUFFS INH Q6H PRN for COUGH, (Reported) Albuterol Sulfate (Albuterol Sulfate) 2.5 Mg/0.5 Ml Vial.neb, 2.5 MG INH Q6H PRN for SHORTNESS OF BREATH, (Reported) Hydrocodone/Acetaminophen ([place] 5-325 Tablet) 1 Each Tablet, 1 TAB PO TIDP PRN for pain Ondansetron HCl (Zofran) 4 Mg Tablet, 4 MG PO TID PRN for NAUSEA, (Reported) Propylene Glycol/Peg 400/Pf (Systane 0.3-0.4% Eye Drop) 1 Each [place], 1 DROP OU QID PRN for DRY EYES, (Reported) Allergies Coded Allergies: Penicillins (Verified Allergy, Intermediate, rash/hives, 05/17/19) Quinolones (Verified Allergy, Mild, RASH, 10/29/18) cefoxitin (Verified Allergy, Mild, rash, 05/17/19) clindamycin (Verified Allergy, Mild, RASH, 10/29/18) gentamicin (Verified Allergy, Mild, rash, 05/17/19) povidone-iodine (Verified Allergy, Mild, RASH/BLISTERS, 10/29/18) carisoprodol (Verified Allergy, Unknown, 10/29/18) fluticasone (Verified Adverse Reaction, Intermediate, THROAT BLISTERS, 05/17/19) salmeterol (Verified Adverse Reaction, Intermediate, THROAT BLISTERS, 05/17/19) epinephrine (Verified Adverse Reaction, Mild, tachycardia, 05/17/19) AN EXPECTED REACTION meperidine (Verified Adverse Reaction, Mild, tachycardia, 05/17/19) zolpidem (Verified Adverse Reaction, Mild, BLISTERS, 10/29/18) ISAMAR LOVE DO Aug 25, 2019 15:39 CHRISSY REYES MD Sep 10, 2019 08:03
[2019-08-25] MEDS ORDERED: LABE100T36 PO (16:29)
--- NOTE | 2019-08-26 18:58 | CR ---
DATE OF CONSULTATION: 08/25/2019 REFERRING PHYSICIAN: Dr. Luis Manuel Hernandez. REASON FOR CONSULTATION: Headache, right-sided facial and arm numbness, tingling and right arm weakness. HISTORY OF PRESENT ILLNESS: Gaby Graham is a 53-year-old woman who was at her baseline state of health until yesterday, when she developed severe thumping, right frontal 10/10 headache, and that happens only when her blood pressure is high. At home, her blood pressure was 213/121. She also felt tingling. numbness of right arm and face and subjective weakness of right arm. Her blood glucose at home was normal. She came to emergency department after calling 10-29-. CT scan of her head in the emergency department was reported as pulse possible left genu of internal capsule calcification versus hemorrhage. She was admitted for observation and repeat CT scan of her head in the morning. Her blood pressures have improved since then and the patient was started on labetalol tablets in addition to her lisinopril. This morning, the patient feels back to her normal self. Her symptoms have completely resolved. He patient cannot have MRI scan of her brain due to her spinal stimulator placed by neurosurgery and the patient follows with orthopedics and neurosurgery for her chronic back pain. She denies any headaches, usually except when her blood pressure is very high. She denies any seizures, dysphagia, dysarthria, diplopia or urinary incontinence. PAST MEDICAL HISTORY: 1. Chronic back pain and the patient has a dorsal column stimulator placed. 2. Type 2 diabetes. 3. Hypertension. 4. Dyslipidemia. 5. RFD which switched from her left arm to right arm. 6. Acid reflux. 7. Seasonal allergies. 8. Anxiety/depression. 9. Neuropathy. 10. Sciatica. 11. Anemia. 12. Chronic obstructive pulmonary disease (COPD). 13. Hysterectomy. 14. Right carpal tunnel surgery. SOCIAL HISTORY: She smokes tobacco but denies any alcohol or illicit drugs. FAMILY HISTORY: There is no family history of stroke. REVIEW OF SYSTEMS: All systems were reviewed and found to be noncontributory except as mentioned in history of present illness. HOME MEDICATIONS: - aspirin 81 mg by mouth daily - Lipitor 40 mg by mouth daily - BuSpar 15 mg by mouth three times a day - cetirizine 10 mg by mouth daily - dicyclomine 10 mg by mouth three times a day - doxycycline 100 mg by mouth daily - Cymbalta 60 mg by mouth daily - ferrous sulfate 324 mg by mouth daily - Flonase nasal spray - Breo Ellipta 1 inhalation daily - gabapentin 300 mg by mouth three times a day and 600 mg by mouth at bedtime - lisinopril 20 mg by mouth daily - meloxicam 7.5 mg by mouth daily - metformin 500 mg by mouth twice a day - [id number] mg twice a day - Raloxifene 60 mg by mouth daily - sucralfate 1 gram by mouth twice a day - trazodone 50 mg by mouth daily - albuterol inhaler as needed - Vicodin 5/325 mg by mouth three times a day - Zofran 4 mg by mouth three times a day as needed ALLERGIES: PENICILLIN, CEFOXITIN, QUINOLONES, CLINDAMYCIN, GENTAMICIN, IODINE, <<4:41>> ALBUTEROL, EPINEPHRINE, DEMEROL, AMBIEN. PHYSICAL EXAMINATION Temperature 97.8, pulse 76, respiratory rate 16, blood pressure 134/82. HEART: Regular rate and rhythm. LUNGS: Clear to auscultation. ABDOMEN: Soft, nontender, nondistended. No pedal edema. No musculoskeletal abnormalities. No rash. No signs of meningeal irritation. The patient is awake, alert, oriented to place, person and time. Normal speech comprehension and repetition. Extraocular muscles are intact. No facial weakness. Tongue and uvula are midline. 5/5 strength in all of four extremities. Deep tendon flexes are 1+ throughout. Normal sensation throughout. Gait is normal. No dysmetria. DIAGNOSTIC STUDIES: CT scan of head was repeated this morning and was reported as benign. Calcification in left internal capsule genu. No evidence of intracranial bleeding. Carotid ultrasound was unremarkable. ASSESSMENT: 1. Hypertensive urgency causing headaches and right-sided facial and arm paresthesias 2. Benign calcification in of genu left internal capsule. PLAN: 1. Long-term goal for her hypertension should be less than 130/80, blood pressure. 2. She has been started on labetalol 200 mg by mouth twice a day in addition to her lisinopril 20 mg by mouth daily. She should hold labetalol if her blood pressure is running below 120 systolic and pulse below 60. She will followup with her primary care physician and project coordinator rn for further management of her hypertension. 3. Follow with our office in 1-2 weeks after hospital discharge.
== END 2019-08-25 16:46 | disposition home or self-care (01) ==
LOC: EDBD 16:57 → M ED 16:57 → M ED INP 16:58 → ENRESERV 21:00 → M PCU 22:23
PROVIDERS: ADMIT Neuromusculoskeletal Medicine & OMM; ATTEND Neuromusculoskeletal Medicine & OMM
DX: G45.9 Transient cerebral ischemic attack, unspecified (principal); I10 Essential (primary) hypertension; E11.9 Type 2 diabetes mellitus without complications; G89.29 Other chronic pain; Z96.82 Presence of neurostimulator; J44.9 Chronic obstructive pulmonary disease, unspecified; F41.9 Anxiety disorder, unspecified; F32.9 Major depressive disorder, single episode, unspecified; K21.9 Gastro-esophageal reflux disease without esophagitis; Z79.82 Long term (current) use of aspirin; Z79.84 Long term (current) use of oral hypoglycemic drugs; Z79.899 Other long term (current) drug therapy; D64.9 Anemia, unspecified; Z88.0 Allergy status to penicillin; Z88.8 Allergy status to other drugs, medicaments and biological substances; F17.218 Nicotine dependence, cigarettes, with other nicotine-induced disorders
CPT/HCPCS: 36415; 70450; 70496; 80047; 80048; 80307; 81001; 82550; 82553; 85025; 85027; 85610; 85730; 93306; 93880; 96361; 96374; 96375; 99285; J2270; Q9967

== ENCOUNTER → 2019-08-30 | Outpatient (REF) | payer OTHER, MEDICAID ==
[~2019-08-30] MED LIST changes: +ALB2.5NEB INH; -AMLO1TAB24 PO; +AMLO5TAB6 PO; +ASPI81TA85 PO; -ASPI81TA86 PO; +ATOR40TA75 PO; +FLON1SPR NARES; -GABA-282 PO; +GABA-843 PO; +GABA600T4 PO; +LABE100T36 PO; +LISI-538 PO; -LISI10TA22 PO; +LISI10TA4 PO; -LISI20TA33 PO; +PEG1POW PO; +SUCR1TAB56 PO; +SYST1SOL4 OU; +TRAZ-252 PO; +ZOFR4TAB16 PO
[2019-08-30 17:58] LABS: ALBUMIN 3.8 GM/DL (3.2-5.2); ALT/SGPT 26 U/L (12-78); BILIRUBIN,TOTAL 0.6 MG/DL (0.2-1.0); BLOOD UREA NITROGEN 16 MG/DL (7-18); CALCIUM LEVEL 9.1 MG/DL (8.5-10.1); CARBON DIOXIDE LEVEL 28 MEQ/L (21-32); CHLORIDE LEVEL 111 MEQ/L (98-107); CHOLESTEROL LEVEL 173 MG/DL (<200); CHOLESTEROL RISK RATIO 3.392 (<5); CREATININE FOR GFR 0.74 MG/DL (0.55-1.30); GLOMERULAR FILTRATION RATE > 60.0 (>51); GLUCOSE, FASTING 94 MG/DL (70-100); HDL CHOLESTEROL 51 MG/DL (>40); LDL CHOLESTEROL 96 MG/DL (<100); NON-HDL-C 122 MG/DL; POTASSIUM SERUM 4.8 MEQ/L (3.5-5.1); SODIUM LEVEL 144 MEQ/L (136-145); TOTAL 25(OH) VITAMIN D 33.9 NG/ML (30.0-100.0); TOTAL PROTEIN 6.7 GM/DL (6.4-8.2); TRIGLYCERIDES LEVEL 129 MG/DL (<150)
[2019-08-30 17:59] LABS: BASO % 0.5 % (0.0-1.0); EOS # 0.2 10^3/uL (0.0-0.5); HEMATOCRIT 41.8 % (36.0-47.0); HEMOGLOBIN 13.9 g/dl (12.0-15.5); LYMPH # 2.7 10^3/uL (1.5-5.0); LYMPH % 43.2 % (24.0-44.0); MEAN CORPUSCULAR HEMOGLOBIN 31.2 pg (27.0-33.0); MEAN CORPUSCULAR HGB CONC 33.3 g/dl (32.0-36.5); MEAN CORPUSCULAR VOLUME 93.7 fl (80.0-96.0); MONO # 0.4 10^3/uL (0.0-0.8); MONO % 5.6 % (0.0-5.0); NEUTROPHILS # 2.9 10^3/uL (1.5-8.5); NEUTROPHILS % 47.1 % (36.0-66.0); PLATELET COUNT, AUTOMATED 263 10^3/uL (150-450); RED BLOOD COUNT 4.46 10^6/uL (4.00-5.40); WHITE BLOOD COUNT 6.3 10^3/uL (4.0-10.0)
[2019-08-30 18:01] LABS: HEMOGLOBIN A1c 6.3 %
== END ==
LOC: M LAB REF 17:02
PROVIDERS: ATTEND Family Medicine Addiction Medicine
DX: I10 Essential (primary) hypertension (principal)

== ENCOUNTER → 2019-09-06 | Outpatient (CLI) | payer OTHER ==
[~2019-09-06] MED LIST changes: +AMLO1TAB24 PO; -AMLO5TAB6 PO; -ASPI81TA85 PO; +ASPI81TA86 PO
== END ==
LOC: M LABSMTC 10:55
PROVIDERS: ATTEND Physical Medicine & Rehabilitation
DX: Z01.812 Encounter for preprocedural laboratory examination (principal); Z11.59 Encounter for screening for other viral diseases; Z20.828 Contact with and (suspected) exposure to other viral communicable diseases

== ENCOUNTER → 2019-12-05 | Outpatient (CLI) | payer OTHER | LOC: M LABSMTC 10:56 | PROVIDERS: ATTEND Physical Medicine & Rehabilitation | DX: Z01.812 Encounter for preprocedural laboratory examination (principal); Z20.828 Contact with and (suspected) exposure to other viral communicable diseases ==

== ENCOUNTER 2020-02-13 17:45 | Emergency (ER) | payer OTHER ==
[~2020-02-13] VITALS: Ht 157.5 cm; Wt 87.5 kg
[2020-02-13] MEDS ORDERED: ROPI0.253 PO (18:31)
[2020-02-13] MEDS ORDERED: AMLO1TAB24 PO (18:31)
[2020-02-13] MEDS ORDERED: ONDANSETRON 4MG/2ML VIAL IV ONE (19:30)
[2020-02-13] MEDS ORDERED: MELOXICAM (MOBIC) 7.5 MG TAB PO STA (19:52)
[2020-02-13] MEDS ORDERED: GABAPENTIN 300 MG CAP PO ONE (20:00)
--- NOTE | 2020-02-13 20:54 | REPVR ---
PROCEDURE INFORMATION: Exam: CT Lumbar Spine Without Contrast Exam date and time: 02/13/2020 8:31 PM Age: 54 years old Clinical indication: Low back pain; Additional info: Fall yest, chronic back pain, severe lumbar TECHNIQUE: Imaging protocol: Computed tomography images of the lumbar spine without contrast. Radiation optimization: All CT scans at this facility use at least one of these dose optimization techniques: automated exposure control; mA and/or kV adjustment per patient size (includes targeted exams where dose is matched to clinical indication); or iterative reconstruction. COMPARISON: CT Spine, lumbar w/o contrast 07/31/2019 9:26 PM FINDINGS: Vertebrae: Bilateral pars defects at L5-S1 with grade 1 anterolisthesis. Otherwise normal alignment. No compression fracture or bone lesions. Discs/Spinal canal/Neural foramina: Advanced disc degeneration at L5-S1 with severe bilateral foraminal stenosis. Mild discogenic degenerative changes and facet DJD at other levels. Sacrum/coccyx: Mild SI joint DJD. Soft tissues: Unremarkable. IMPRESSION: 1. No acute fracture. 2. Degenerative spondylosis as above. Bilateral pars defects with grade 1 anterolisthesis and foraminal stenosis at L5-S1. Electronically signed by: Hong De La Fuente On 02/13/2020 20:54:14 PM
[2020-02-13] MEDS ORDERED: diazePAM 10MG/2ML SYRINGE (J3360 PER 5MG) IV ONE (21:00)
[2020-02-13] MEDS ORDERED: MORPHINE 4 MG/ML 1ML VIAL/SYRINGE (J2270) IV ONE (21:00)
[2020-02-13 21:48] VITALS: BP 138/68
== END 2020-02-13 21:50 | disposition home or self-care (01) ==
LOC: M ED 17:45
DX: M43.17 Spondylolisthesis, lumbosacral region (principal); G89.29 Other chronic pain; I10 Essential (primary) hypertension; E78.5 Hyperlipidemia, unspecified; Z88.0 Allergy status to penicillin; Z88.8 Allergy status to other drugs, medicaments and biological substances; Z88.6 Allergy status to analgesic agent; Z88.1 Allergy status to other antibiotic agents
CPT/HCPCS: 72131; 96374; 96375; 99284; J2270; J2405; J3360

== ENCOUNTER → 2020-03-13 | Outpatient (CLI) | payer OTHER ==
[~2020-03-13] MED LIST changes: +GABA-282 PO; -GABA-843 PO; +ROPI0.253 PO
[2020-03-13 09:46] LABS: BASO % 0.5 % (0.0-1.0); EOS # 0.1 10^3/uL (0.0-0.5); EOS % 2.4 % (0.0-3.0); HEMATOCRIT 41.1 % (36.0-47.0); HEMOGLOBIN 13.8 g/dl (12.0-15.5); LYMPH # 2.1 10^3/uL (1.5-5.0); LYMPH % 38.6 % (24.0-44.0); MEAN CORPUSCULAR HEMOGLOBIN 32.5 pg (27.0-33.0); MEAN CORPUSCULAR HGB CONC 33.6 g/dl (32.0-36.5); MEAN CORPUSCULAR VOLUME 96.7 fl (80.0-96.0); MONO # 0.4 10^3/uL (0.0-0.8); MONO % 6.9 % (0.0-5.0); NEUTROPHILS # 2.8 10^3/uL (1.5-8.5); NEUTROPHILS % 51.4 % (36.0-66.0); PLATELET COUNT, AUTOMATED 215 10^3/uL (150-450); RED BLOOD COUNT 4.25 10^6/uL (4.00-5.40); WHITE BLOOD COUNT 5.5 10^3/uL (4.0-10.0)
[2020-03-13 10:13] LABS: ERYTHROCYTE SEDIMENTATION RATE 5 mm/hr (0-30)
[2020-03-13 10:17] LABS: ALBUMIN 3.7 GM/DL (3.2-5.2); ALT/SGPT 30 U/L (12-78); BILIRUBIN,TOTAL 0.4 MG/DL (0.2-1.0); BLOOD UREA NITROGEN 13 MG/DL (7-18); CALCIUM LEVEL 8.9 MG/DL (8.5-10.1); CARBON DIOXIDE LEVEL 26 MEQ/L (21-32); CHLORIDE LEVEL 110 MEQ/L (98-107); CREATININE FOR GFR 0.78 MG/DL (0.55-1.30); GLOMERULAR FILTRATION RATE > 60.0 (>51); GLUCOSE, FASTING 106 MG/DL (70-100); POTASSIUM SERUM 4.3 MEQ/L (3.5-5.1); SODIUM LEVEL 141 MEQ/L (136-145); TOTAL PROTEIN 6.1 GM/DL (6.4-8.2)
== END ==
LOC: M LAB 08:16
PROVIDERS: ATTEND Physician Assistant
DX: T84.7XXD Infection and inflammatory reaction due to other internal orthopedic prosthetic devices, implants and grafts, subsequent encounter (principal); Z96.9 Presence of functional implant, unspecified; Z79.2 Long term (current) use of antibiotics

== ENCOUNTER → 2020-03-21 | Outpatient (CLI) | payer OTHER ==
[~2020-03-21] MED LIST changes: -LISI-538 PO; +LISI10TA22 PO; -LISI10TA4 PO; +LISI20TA33 PO
--- NOTE | 2020-03-21 09:00 | REP ---
INDICATION: NICOTINE DEPENDENCE COMPARISON: 06/11/2019 TECHNIQUE: Axial noncontrast images from the thoracic inlet to the upper abdomen using low-dose lung screening technique (LDCT). FINDINGS: Bilateral lung saldana are well aerated and clear. No consolidation, suspicious nodule or mass lesion. No pleural effusion. No pneumothorax. Tracheobronchial tree is patent. IMPRESSION: Lung-RADS category 1. Management recommendations include annual low-dose CT surveillance. <Electronically signed by Luis Chavez > 03/21/20 [id number]
== END ==
LOC: M RAD 08:38
PROVIDERS: ATTEND Internal Medicine Pulmonary Disease
DX: F17.218 Nicotine dependence, cigarettes, with other nicotine-induced disorders (principal)

== ENCOUNTER 2020-07-19 16:05 | Emergency (ER) | payer OTHER ==
[~2020-07-19] VITALS: Ht 157.5 cm; Wt 93.0 kg
[~2020-07-19 16:05] MED LIST changes: -LABE100T36 PO; +LABE100T5 PO; -PEG1POW PO; +POLY17PO18 PO; -SIME180C PO; +SIME180C25 PO
[2020-07-19] MEDS ORDERED: GI COCKTAIL 50ML BTL(HYOSCYAMINE/MAALOX/LIDOCAINE VISCOUS)(1:3:1) PO ONE (16:35)
[2020-07-19 17:01] LABS: HEMATOCRIT 42.8 % (36.0-47.0); HEMOGLOBIN 14.4 g/dl (12.0-15.5); MEAN CORPUSCULAR HEMOGLOBIN 32.8 pg (27.0-33.0); MEAN CORPUSCULAR HGB CONC 33.6 g/dl (32.0-36.5); MEAN CORPUSCULAR VOLUME 97.5 fl (80.0-96.0); PLATELET COUNT, AUTOMATED 235 10^3/uL (150-450); RED BLOOD COUNT 4.39 10^6/uL (4.00-5.40); WHITE BLOOD COUNT 6.8 10^3/uL (4.0-10.0)
[2020-07-19] MEDS ORDERED: ISOVUE-370 76% 100ML VIAL As Ordered ONE (17:20)
[2020-07-19 17:38] LABS: ATYPICAL LYMPH 14 % (0-5); BASOPHILS 1 % (0-1); EOSINOPHILS 3 % (0-3); LYMPHOCYTES 28 % (16-44); MONOCYTES 3 % (0-5); NEUTROPHILS 51 % (28-66); PLATELET ESTIMATE NORMAL (NORMAL)
[2020-07-19 17:40] LABS: ALBUMIN 3.9 GM/DL (3.2-5.2); BILIRUBIN,DIRECT 0.1 MG/DL (0.0-0.2); BILIRUBIN,TOTAL 0.4 MG/DL (0.2-1.0); TOTAL PROTEIN 6.6 GM/DL (6.4-8.2)
--- NOTE | 2020-07-19 18:03 | REPVR ---
PROCEDURE INFORMATION: Exam: CT Abdomen And Pelvis With Contrast Exam date and time: 07/19/2020 5:29 PM Age: 54 years old Clinical indication: Abdominal pain; Localized; Upper; Additional info: Ruq/epigastric abdominal pain TECHNIQUE: Imaging protocol: Computed tomography of the abdomen and pelvis with contrast. Radiation optimization: All CT scans at this facility use at least one of these dose optimization techniques: automated exposure control; mA and/or kV adjustment per patient size (includes targeted exams where dose is matched to clinical indication); or iterative reconstruction. Contrast material: ISOVUE 370; Contrast volume: 100 ml; Contrast route: INTRAVENOUS (IV); COMPARISON: CT ABD/PEL W/IV CONTRAST ONLY 06/11/2019 12:04 AM FINDINGS: Liver: There is a diffuse decrease in hepatic parenchymal density, consistent with steatosis. Gallbladder and bile ducts: The gallbladder is incompletely distended. This is most likely related to incomplete fasting. Clinical correlation to exclude gallbladder pathology suggested. Pancreas: Normal. No ductal dilation. Spleen: Normal. No splenomegaly. Adrenal glands: Normal. No mass. Kidneys and ureters: Normal. No hydronephrosis. Stomach and bowel: There is poor distention and thickening of the aguilar of the stomach most likely related to incomplete distention with oral contrast media or water. If there is any suspicion for infiltrative pathology further evaluation suggested. Appendix: No evidence of appendicitis. Intraperitoneal space: Unremarkable. No free air. No significant fluid collection. Vasculature: The aortoiliac vessels demonstrate mild atherosclerotic calcification. Lymph nodes: Unremarkable. No enlarged lymph nodes. Urinary bladder: Unremarkable as visualized. Reproductive: There has been a hysterectomy. Bones/joints: There is a grade 2 anterior spondylolisthesis of L5 on S1 secondary to bilateral L5 spondylolysis. Moderate central spinal stenosis L3-L4 and L4-L5. Soft tissues: Unremarkable. IMPRESSION: 1. There is a grade 2 anterior spondylolisthesis of L5 on S1 secondary to bilateral L5 spondylolysis. 2. There is a diffuse decrease in hepatic parenchymal density, consistent with steatosis. 3. The gallbladder is incompletely distended. This is most likely related to incomplete fasting. Clinical correlation to exclude gallbladder pathology suggested. 4. There has been a hysterectomy. Electronically signed by: Camilo Potts On 07/19/2020 18:02:31 PM
--- NOTE | 2020-07-19 19:24 | REP ---
INDICATION: RUQ abd pain. COMPARISON: Comparison is made with CT study of the abdomen and pelvis from the earlier this date.. TECHNIQUE: Right upper quadrant sonography. FINDINGS: Scanning through the right upper quadrant of the abdomen demonstrates a normal sized, thin-walled gallbladder without evidence of stone or polyp. Common bile duct is normal measuring 0.3 cm in greatest diameter. There is evidence of fatty infiltration of the liver. Area of sparing near the gallbladder. No focal liver lesion is seen. Liver size is normal. No pancreatic abnormality is observed. No right renal abnormality is seen. There is no evidence of ascites. The right kidney measures 9.9 x 4.7 x 3.8 cm. IMPRESSION: There is evidence of fatty infiltration of the liver with areas of sparing near the gallbladder. Otherwise negative right upper quadrant sonography.. <Electronically signed by Javier Dutton > 07/19/201919
[2020-07-19 19:32] VITALS: BP 140/85
== END 2020-07-19 19:51 | disposition home or self-care (01) ==
LOC: M ED 16:05
DX: R10.11 Right upper quadrant pain (principal); M54.5 Low back pain; M43.17 Spondylolisthesis, lumbosacral region; K21.9 Gastro-esophageal reflux disease without esophagitis; K58.8 Other irritable bowel syndrome; Z88.0 Allergy status to penicillin; Z88.1 Allergy status to other antibiotic agents; Z88.8 Allergy status to other drugs, medicaments and biological substances; Z79.899 Other long term (current) drug therapy; Z90.711 Acquired absence of uterus with remaining cervical stump
CPT/HCPCS: 36415; 74177; 76705; 80047; 80076; 81001; 83605; 83690; 85025; 99284; Q9967

== ENCOUNTER 2020-08-04 14:18 | Emergency (ER) | payer OTHER ==
[~2020-08-04] VITALS: Ht 154.9 cm; Wt 92.1 kg
[2020-08-04 14:18] VITALS: BP 138/88
== END 2020-08-04 15:40 | disposition left against medical advice (07) ==
LOC: M ED 14:18
DX: Z53.21 Procedure and treatment not carried out due to patient leaving prior to being seen by health care provider (principal)

== ENCOUNTER 2020-08-13 13:13 | Emergency (ER) | payer OTHER ==
[~2020-08-13] VITALS: Ht 157.5 cm; Wt 92.0 kg
[~2020-08-13 13:13] MED LIST changes: -DOXY100C37 PO; +DOXY1CAP62 PO; +ERGO500029 PO; +OMEP40CA4 PO; -OMEP40CA97 PO; -VITA50005 PO
[2020-08-13] MEDS ORDERED: LIDOCAINE 2% MDV 20ML VIAL SC ONE (15:15)
[2020-08-13] MEDS ORDERED: BOOSTRIX/ADACEL VACCINE (DIPHTH/PERTUSS/ACELL/TETANUS) 0.5ML SYR IM ONE (15:50)
[2020-08-13] MEDS ORDERED: BACTRIM 160MG/800MG DS TAB As Ordered ONE (15:56)
[2020-08-13] MEDS ORDERED: BACT800T5 PO (16:08)
[2020-08-13] MEDS ORDERED: BACTRIM 160MG/800MG DS TAB PO ONE (16:10)
[2020-08-13 16:34] VITALS: BP 140/92
== END 2020-08-13 16:34 | disposition home or self-care (01) ==
LOC: M ED 13:13
DX: S61.243A Puncture wound with foreign body of left middle finger without damage to nail, initial encounter (principal); W45.8XXA Other foreign body or object entering through skin, initial encounter; Y92.019 Unspecified place in single-family (private) house as the place of occurrence of the external cause; Y93.9 Activity, unspecified; Y99.9 Unspecified external cause status; Z88.0 Allergy status to penicillin; Z88.1 Allergy status to other antibiotic agents; Z88.8 Allergy status to other drugs, medicaments and biological substances; Z79.899 Other long term (current) drug therapy

== ENCOUNTER → 2020-10-20 | Outpatient (CLI) | payer OTHER ==
[~2020-10-20] MED LIST changes: +BACT800T5 PO
[2020-10-20 13:37] LABS: BASO % 0.5 % (0.0-1.0); EOS # 0.1 10^3/uL (0.0-0.5); EOS % 1.7 % (0.0-3.0); HEMOGLOBIN 14.4 g/dl (12.0-15.5); LYMPH # 2.6 10^3/uL (1.5-5.0); LYMPH % 46.2 % (24.0-44.0); MEAN CORPUSCULAR HEMOGLOBIN 32.2 pg (27.0-33.0); MEAN CORPUSCULAR HGB CONC 33.5 g/dl (32.0-36.5); MEAN CORPUSCULAR VOLUME 96.2 fl (80.0-96.0); MONO # 0.4 10^3/uL (0.0-0.8); MONO % 7.2 % (2.0-8.0); NEUTROPHILS # 2.5 10^3/uL (1.5-8.5); NEUTROPHILS % 44.1 % (36.0-66.0); PLATELET COUNT, AUTOMATED 271 10^3/uL (150-450); RED BLOOD COUNT 4.47 10^6/uL (4.00-5.40); WHITE BLOOD COUNT 5.7 10^3/uL (4.0-10.0)
[2020-10-20 14:10] LABS: ALBUMIN 3.8 GM/DL (3.2-5.2); ALT/SGPT 52 U/L (12-78); BILIRUBIN,TOTAL 0.6 MG/DL (0.2-1.0); BLOOD UREA NITROGEN 9 MG/DL (7-18); CALCIUM LEVEL 8.8 MG/DL (8.5-10.1); CARBON DIOXIDE LEVEL 28 MEQ/L (21-32); CHLORIDE LEVEL 109 MEQ/L (98-107); CREATININE FOR GFR 0.69 MG/DL (0.55-1.30); GLOMERULAR FILTRATION RATE > 60.0 (>51); GLUCOSE, FASTING 97 MG/DL (70-100); POTASSIUM SERUM 4.6 MEQ/L (3.5-5.1); SODIUM LEVEL 141 MEQ/L (136-145); TOTAL PROTEIN 6.7 GM/DL (6.4-8.2)
[2020-10-20 14:33] LABS: ERYTHROCYTE SEDIMENTATION RATE 7 mm/hr (0-30)
== END ==
LOC: M PLALAB 09:47
PROVIDERS: ATTEND Physician Assistant
DX: T84.7XXD Infection and inflammatory reaction due to other internal orthopedic prosthetic devices, implants and grafts, subsequent encounter (principal); Y83.1 Surgical operation with implant of artificial internal device as the cause of abnormal reaction of the patient, or of later complication, without mention of misadventure at the time of the procedure

== ENCOUNTER → 2020-10-20 | Outpatient (CLI) | payer OTHER ==
--- NOTE | 2020-10-20 13:00 | REPVR ---
PROCEDURE INFORMATION: Exam: CT Maxillofacial Without Contrast, Sinus Exam date and time: 10/20/2020 10:23 AM Age: 54 years old Clinical indication: Sinusitis; Chronic; Additional info: Chronic pansinusitis- lab first TECHNIQUE: Imaging protocol: CT Maxillofacial without contrast. Focus on the sinuses. Radiation optimization: All CT scans at this facility use at least one of these dose optimization techniques: automated exposure control; mA and/or kV adjustment per patient size (includes targeted exams where dose is matched to clinical indication); or iterative reconstruction. COMPARISON: CT Head without contrast 08/25/2019 7:26 AM FINDINGS: Frontal sinuses: Normal. No air-fluid levels. Ethmoid air cells: Normal. No air-fluid levels. Sphenoid sinuses: Normal. No air-fluid levels. Maxillary sinuses: There is a small flat 7 mm mucous retention cyst within the posterior left maxillary sinus, decreased in size from 11 mm on the prior exam. The right maxillary sinus is clear. There are no air-fluid levels. The ostiomeatal units are patent. Nasal cavity/Septum: There is rightward bowing of the anterior nasal septum and mild leftward bowing of the posterior nasal septum. A leftward directed posterior nasal spur is also present. Orbital cavity: The orbital structures are unremarkable. Bones/joints: Unremarkable. Soft tissues: Unremarkable. IMPRESSION: 1. No acute abnormality. 2. Chronic findings as discussed above. Electronically signed by: Jose Wade On 10/20/2020 12:59:45 PM
== END ==
LOC: M PLAIMG 09:42
PROVIDERS: ATTEND Otolaryngology
DX: J32.4 Chronic pansinusitis (principal)

== ENCOUNTER 2020-11-15 17:39 | Emergency (ER) | payer OTHER ==
[~2020-11-15] VITALS: Ht 154.9 cm; Wt 85.0 kg
[2020-11-15 18:47] LABS: BASO % 0.5 % (0.0-1.0); EOS # 0.1 10^3/uL (0.0-0.5); EOS % 0.9 % (0.0-3.0); HEMATOCRIT 38.7 % (36.0-47.0); HEMOGLOBIN 13.7 g/dl (12.0-15.5); LYMPH # 3.1 10^3/uL (1.5-5.0); LYMPH % 40.9 % (24.0-44.0); MEAN CORPUSCULAR HEMOGLOBIN 32.9 pg (27.0-33.0); MEAN CORPUSCULAR HGB CONC 35.4 g/dl (32.0-36.5); MEAN CORPUSCULAR VOLUME 92.8 fl (80.0-96.0); MONO # 0.4 10^3/uL (0.0-0.8); MONO % 5.3 % (2.0-8.0); NEUTROPHILS % 52.1 % (36.0-66.0); PLATELET COUNT, AUTOMATED 273 10^3/uL (150-450); RED BLOOD COUNT 4.17 10^6/uL (4.00-5.40); WHITE BLOOD COUNT 7.6 10^3/uL (4.0-10.0)
[2020-11-15 19:26] LABS: CK-MB VALUE MASS 2.1 NG/ML (<3.6); CPK CREATINE PHOSPHOKINASE 138 U/L (26-192); FREE T4 0.91 NG/DL (0.76-1.46); MB/CK RELATIVE INDEX 1.52 (< OR =4); NT-PRO BNP 51 PG/ML (<125); TROPONIN I < 0.02 NG/ML (< 0.10)
--- NOTE | 2020-11-15 19:44 | REPVR ---
PROCEDURE INFORMATION: Exam: XR Chest Exam date and time: 11/15/2020 6:52 PM Age: 54 years old Clinical indication: Chest wall pain; Additional info: Chest pain TECHNIQUE: Imaging protocol: XR of the chest. Views: 1 view. COMPARISON: [facility] PORTABLE CHEST X-RAY 05/28/2019 9:56 PM FINDINGS: Lungs: Unremarkable. No consolidation. Pleural spaces: Unremarkable. No pleural effusion. No pneumothorax. Heart/Mediastinum: Unremarkable. No cardiomegaly. Bones/joints: Unremarkable. IMPRESSION: No acute findings. Electronically signed by: Camilo Potts On 11/15/2020 19:44:29 PM
[2020-11-15 20:03] LABS: MONO SCRN NEGATIVE (NEGATIVE)
--- NOTE | 2020-11-15 20:16 | REPVR ---
PROCEDURE INFORMATION: Exam: CT Head Without Contrast Exam date and time: 11/15/2020 7:58 PM Age: 54 years old Clinical indication: Injury or trauma; Fall; Blunt trauma (contusions or hematomas) TECHNIQUE: Imaging protocol: Computed tomography of the head without contrast. Radiation optimization: All CT scans at this facility use at least one of these dose optimization techniques: automated exposure control; mA and/or kV adjustment per patient size (includes targeted exams where dose is matched to clinical indication); or iterative reconstruction. COMPARISON: CT Head without contrast 08/25/2019 7:26 AM FINDINGS: Brain: Normal. No hemorrhage. Unremarkable white matter. No mass effect. Cerebral ventricles: No ventriculomegaly. Paranasal sinuses: Visualized sinuses are unremarkable. No fluid levels. Mastoid air cells: Visualized mastoid air cells are well aerated. Bones/joints: Unremarkable. No acute fracture. Soft tissues: Unremarkable. IMPRESSION: No acute intracranial abnormality. Electronically signed by: Camilo Potts On 11/15/2020 20:16:13 PM
--- NOTE | 2020-11-15 20:21 | REPVR ---
PROCEDURE INFORMATION: Exam: CT Cervical Spine Without Contrast Exam date and time: 11/15/2020 7:58 PM Age: 54 years old Clinical indication: Injury or trauma; Fall; Blunt trauma TECHNIQUE: Imaging protocol: Computed tomography images of the cervical spine without contrast. Radiation optimization: All CT scans at this facility use at least one of these dose optimization techniques: automated exposure control; mA and/or kV adjustment per patient size (includes targeted exams where dose is matched to clinical indication); or iterative reconstruction. COMPARISON: CT Spine,cervical w/o contrast 04/14/2019 11:46 PM FINDINGS: Tubes, catheters and devices: Epidural stimulator leads demonstrated in the cervical spine. Bones/joints: Status post laminectomies at C3 and C4. Discs/Spinal canal/Neural foramina: There are degenerative changes demonstrated in the atlantoaxial joint at C1-C2 with osteophytes and joint space narrowing. The transverse ligament is unremarkable. Mild bilateral foraminal narrowing at C4, mild foraminal narrowing on the right at C5 moderate foraminal narrowing on the right and moderate to severe foraminal narrowing on the left at C6 secondary to osteophytic encroachment. Multilevel disc osteophyte complexes with a posterior disc protrusion at C3-C4 without cord impingement, broad posterior protrusion at C4-C5 with minimal cord impingement, disc osteophyte complex at C5-C6 with mild cord impingement, and disc osteophyte complex and central protrusion at C6-C7 resulting in moderate to severe cord impingement. Lungs: Lung apices are normal. Soft tissues: See "Discs/Spinal canal/Neural foramina" finding. IMPRESSION: Degenerative spondylosis. No acute findings. Electronically signed by: Camilo Potts On 11/15/2020 20:21:14 PM
[2020-11-15 20:47] LABS: APPEARANCE, URINE HAZY (CLEAR); BILIRUBIN, URINE AUTO NEGATIVE (NEGATIVE); BLOOD, URINE BLOOD NEGATIVE (NEGATIVE); COLOR, URINE YELLOW (YELLOW); GLUCOSE, URINE (UA) AUTO NEGATIVE (NEGATIVE); KETONE, URINE AUTO NEGATIVE (NEGATIVE); LEUKOCYTE ESTERASE, URINE AUTO 1+ (NEGATIVE); NITRITE, URINE AUTO NEGATIVE (NEGATIVE); PROTEIN, URINE AUTO NEGATIVE (NEGATIVE); SPECIFIC GRAVITY URINE AUTO 1.014 (1.002-1.035)
[2020-11-15 20:53] LABS: BACTERIA, URINE AUTO NEGATIVE (NEGATIVE); CALCIUM OXALATE CRYSTALS SMALL; RBC, URINE AUTO 2 /HPF (0-3); SQUAMOUS EPITHELIAL CELL UR AU 5 /HPF (0-6); WBC, URINE AUTO 8 /HPF (0-3)
[2020-11-15 20:55] LABS: ALBUMIN 3.6 GM/DL (3.2-5.2); BILIRUBIN,DIRECT 0.1 MG/DL (0.0-0.2); BILIRUBIN,TOTAL 0.4 MG/DL (0.2-1.0); TOTAL PROTEIN 6.3 GM/DL (6.4-8.2)
[2020-11-16 01:14] LABS: CPK CREATINE PHOSPHOKINASE 116 U/L (26-192); MB/CK RELATIVE INDEX 1.72 (< OR =4); TROPONIN I < 0.02 NG/ML (< 0.10)
[2020-11-16 01:45] VITALS: BP 128/84
--- NOTE | 2020-11-16 17:11 | ECGEPIP ---
[facility] - ED Test Date: 2020-11-15 Pat Name: ELI WHITE Department: Room: - Gender: Female Chucker: PINO : 1965 Requested By: VANDANA PORTER PA-C. Order Number: [id number] Reading MD: Vijay Andrade Measurements Intervals [place] Rate: 94 P: 48 SD: 154 QRS: 11 QRSD: 74 T: 25 QT: 356 QTc: 445 Interpretive Statements Normal sinus rhythm Nonspecific ST-T wave abnormalities Baseline artifact Similar to tracing done 06-10-19 with shorter QTc Electronically Signed on 11-16-2020 17:11:14 EDT by Vijay Andrade
[2020-11-17] MEDS ORDERED: ECOT81TA5 PO (11:15)
[2020-11-18 14:08] LABS: Lyme Disease IgG/IgM Antibodie <0.91 ISR (0.00-0.90); Lyme Disease IgM Ab Quantitati <0.80 index (0.00-0.79)
== END 2020-11-16 01:48 | disposition home or self-care (01) ==
LOC: M ED 17:39
DX: F43.0 Acute stress reaction (principal); F41.9 Anxiety disorder, unspecified; E11.9 Type 2 diabetes mellitus without complications; I10 Essential (primary) hypertension; J45.909 Unspecified asthma, uncomplicated; F17.200 Nicotine dependence, unspecified, uncomplicated; F32.9 Major depressive disorder, single episode, unspecified; K76.0 Fatty (change of) liver, not elsewhere classified; Z88.0 Allergy status to penicillin; Z88.1 Allergy status to other antibiotic agents; Z88.8 Allergy status to other drugs, medicaments and biological substances

== ENCOUNTER → 2020-11-26 | Outpatient (CLI) | payer OTHER ==
[~2020-11-26] MED LIST changes: +ECOT81TA5 PO
== END ==
LOC: M LABSMTC 09:50
PROVIDERS: ATTEND Anesthesiology
DX: Z01.812 Encounter for preprocedural laboratory examination (principal); Z20.822 Contact with and (suspected) exposure to COVID-19

== ENCOUNTER 2020-12-01 09:36 | Day surgery (SDC) | payer OTHER ==
[~2020-12-01] VITALS: Ht 154.9 cm; Wt 85.7 kg
[~2020-12-01 09:36] MED LIST changes: +NS 1,000 ML IV ONE
[2020-12-01] MEDS ORDERED: LIDOCAINE 2% MDV 20ML VIAL As Ordered ONE (10:49)
[2020-12-01] MEDS ORDERED: fentaNYL 100 MCG/2 ML INJECTION (J3010) As Ordered ONE (10:50)
[2020-12-01] MEDS ORDERED: propofoL 500 MG/50 ML VIAL As Ordered ONE (10:50)
--- NOTE | 2020-12-01 11:39 | ROOR ---
Patient Name: Gaby Graham Procedure Date: 12/01/2020 11:18 AM Date of : 1965 Age: 55 Room: [facility] Gender: Female Note Status: Finalized Procedure: Upper Endoscopy + Biopsies Indications: Epigastric abdominal pain, Diarrhea Providers: Irwin Bocanegra MD Referring MD: Cyndy Ruvalcaba NP Requesting Provider: Medicines: Monitored Anesthesia Care Complications: No immediate complications. Procedure: Pre-Anesthesia Assessment: - The heart rate, respiratory rate, oxygen saturations, blood pressure, adequacy of pulmonary ventilation, and response to care were monitored throughout the procedure. The Endoscope was introduced through the mouth, and advanced to the second part of duodenum. The upper GI endoscopy was accomplished without difficulty. The patient tolerated the procedure well. Findings: The Z-line was variable and was found 40 cm from the incisors. Multiple biopsies were obtained with cold forceps for evaluation to rule out Wright's Esophagus randomly at the gastroesophageal junction. Localized moderate inflammation characterized by congestion (edema), erosions, erythema and aphthous ulcerations was found on the greater curvature of the stomach. Biopsies were taken with a cold forceps for Helicobacter pylori testing. The exam of the duodenum was otherwise normal. Biopsies for histology were taken with a cold forceps in the first portion of the duodenum for evaluation of celiac disease. The exam was otherwise without abnormality. Impression: - Z-line variable, 40 cm from the incisors. - Mucosal changes suspicious for gastritis. Biopsied. - The examination was otherwise normal. - Multiple biopsies were obtained at the gastroesophageal junction. - Biopsies were taken with a cold forceps for evaluation of celiac disease. - The examination was otherwise normal. Recommendation: - Patient has a contact number available for emergencies. The signs and symptoms of potential delayed complications were discussed with the patient. Return to normal activities tomorrow. Written discharge instructions were provided to the patient. - High fiber diet. - Discharge patient to home. - Continue present medications. - Await pathology results. - Telephone GI clinic for pathology results in 1 week. - Return to referring physician. - The findings and recommendations were discussed with the patient. Procedure Code(s): --- Professional --- 35083, Esophagogastroduodenoscopy, flexible, transoral; with biopsy, single or multiple Diagnosis Code(s): --- Professional --- K22.8, Other specified diseases of esophagus K31.89, Other diseases of stomach and duodenum R10.13, Epigastric pain R19.7, Diarrhea, unspecified CPT copyright 2019 [employer]. All rights reserved. The codes documented in this report are preliminary and upon referral specialist review may be revised to meet current compliance requirements. Irwin Bocanegra MD Irwin Bocanegra MD 12/01/2020 11:39:03 AM Electronically signed by Irwin Bocanegra MD Number of Addenda: 0 Note Initiated On: 12/01/2020 11:18 AM Estimated Blood Loss: Estimated blood loss: none.
--- NOTE | 2020-12-01 11:58 | ROOR ---
Patient Name: Gaby Graham Procedure Date: 12/01/2020 11:19 AM Date of : 1965 Age: 55 Room: [facility] Gender: Female Note Status: Finalized Procedure: Total Colonoscopy to Cecum + ileoscopy + Bx Indications: Lower abdominal pain, Clinically significant diarrhea of unexplained origin Providers: Irwin Bocanegra MD Referring MD: Cyndy Ruvalcaba NP Requesting Provider: Medicines: Monitored Anesthesia Care Complications: No immediate complications. Procedure: Pre-Anesthesia Assessment: - The heart rate, respiratory rate, oxygen saturations, blood pressure, adequacy of pulmonary ventilation, and response to care were monitored throughout the procedure. The Colonoscope was introduced through the anus and advanced to the terminal ileum, with identification of the appendiceal orifice and IC valve. The colonoscopy was performed without difficulty. The patient tolerated the procedure well. The quality of the bowel preparation was excellent. Findings: The perianal and digital rectal examinations were normal. Non-bleeding internal hemorrhoids were found during retroflexion. The hemorrhoids were small and Grade I (internal hemorrhoids that do not prolapse). Scattered small-mouthed diverticula were found in the recto-sigmoid colon, sigmoid colon and descending colon. The terminal ileum appeared normal. Biopsies for histology were taken with a cold forceps from the ascending colon, transverse colon, descending colon and rectosigmoid colon for evaluation of microscopic colitis. The exam was otherwise without abnormality on direct and retroflexion views. Impression: - Non-bleeding internal hemorrhoids. - Diverticulosis in the recto-sigmoid colon, in the sigmoid colon and in the descending colon. - The examined portion of the ileum was normal. - The examination was otherwise normal on direct and retroflexion views. - Biopsies were taken with a cold forceps from the ascending colon, transverse colon, descending colon and rectosigmoid colon for evaluation of microscopic colitis. - The exam was otherwise normal to the cecum. Recommendation: - Patient has a contact number available for emergencies. The signs and symptoms of potential delayed complications were discussed with the patient. Return to normal activities tomorrow. Written discharge instructions were provided to the patient. - High fiber diet. - Discharge patient to home. - Continue present medications. - Await pathology results. - Telephone GI clinic for pathology results in 1 week. - Repeat colonoscopy in 10 years for surveillance based on pathology results. - Return to referring physician. - The findings and recommendations were discussed with the patient. Procedure Code(s): --- Professional --- 19544, Colonoscopy, flexible; with biopsy, single or multiple Diagnosis Code(s): --- Professional --- K64.0, First degree hemorrhoids R10.30, Lower abdominal pain, unspecified R19.7, Diarrhea, unspecified K57.30, Diverticulosis of large intestine without perforation or abscess without bleeding CPT copyright 2019 [employer]. All rights reserved. The codes documented in this report are preliminary and upon relay adjuster review may be revised to meet current compliance requirements. Irwin Bocanegra MD Irwin Bocanegra MD 12/01/2020 11:57:39 AM Electronically signed by Irwin Bocanegra MD Number of Addenda: 0 Note Initiated On: 12/01/2020 11:19 AM Estimated Blood Loss: Estimated blood loss: none.
[2020-12-01 12:25] VITALS: BP 117/73
== END 2020-12-01 12:48 | disposition home or self-care (01) ==
LOC: M OPP 09:36
PROVIDERS: ATTEND Internal Medicine Gastroenterology
DX: K57.30 Diverticulosis of large intestine without perforation or abscess without bleeding (principal); K64.0 First degree hemorrhoids; R10.30 Lower abdominal pain, unspecified; R19.7 Diarrhea, unspecified; K22.89 Other specified disease of esophagus; K31.89 Other diseases of stomach and duodenum; K29.70 Gastritis, unspecified, without bleeding; K20.91 Esophagitis, unspecified with bleeding; R10.13 Epigastric pain; Z86.010 Personal history of colon polyps; F17.210 Nicotine dependence, cigarettes, uncomplicated
CPT/HCPCS: 43239; 45380; 88305; J3010

== ENCOUNTER → 2020-12-22 | Outpatient (CLI) | payer OTHER ==
[~2020-12-22] MED LIST changes: +DOXY-443 PO; -DOXY1CAP62 PO; +HYDR-3363 PO; -NS 1,000 ML IV ONE
[2020-12-22 10:25] LABS: BASO % 0.6 % (0.0-1.0); EOS # 0.1 10^3/uL (0.0-0.5); EOS % 1.4 % (0.0-3.0); HEMATOCRIT 44.4 % (36.0-47.0); HEMOGLOBIN 14.5 g/dl (12.0-15.5); LYMPH # 2.4 10^3/uL (1.5-5.0); MEAN CORPUSCULAR HEMOGLOBIN 31.1 pg (27.0-33.0); MEAN CORPUSCULAR HGB CONC 32.7 g/dl (32.0-36.5); MEAN CORPUSCULAR VOLUME 95.3 fl (80.0-96.0); MONO # 0.4 10^3/uL (0.0-0.8); MONO % 5.3 % (2.0-8.0); NEUTROPHILS # 4.2 10^3/uL (1.5-8.5); NEUTROPHILS % 59.3 % (36.0-66.0); PLATELET COUNT, AUTOMATED 271 10^3/uL (150-450); RED BLOOD COUNT 4.66 10^6/uL (4.00-5.40); WHITE BLOOD COUNT 7.1 10^3/uL (4.0-10.0)
[2020-12-22 10:55] LABS: ALBUMIN 3.9 GM/DL (3.2-5.2); ALT/SGPT 27 U/L (12-78); BILIRUBIN,TOTAL 0.4 MG/DL (0.2-1.0); BLOOD UREA NITROGEN 11 MG/DL (7-18); CALCIUM LEVEL 9.5 MG/DL (8.5-10.1); CARBON DIOXIDE LEVEL 30 MEQ/L (21-32); CHLORIDE LEVEL 109 MEQ/L (98-107); CREATININE FOR GFR 0.71 MG/DL (0.55-1.30); GLOMERULAR FILTRATION RATE > 60.0 (>51); GLUCOSE, FASTING 101 MG/DL (70-100); POTASSIUM SERUM 4.3 MEQ/L (3.5-5.1); SODIUM LEVEL 143 MEQ/L (136-145); TOTAL PROTEIN 6.7 GM/DL (6.4-8.2)
== END ==
LOC: M PLALAB 08:15
PROVIDERS: ATTEND Podiatrist
DX: Z01.818 Encounter for other preprocedural examination (principal); M20.12 Hallux valgus (acquired), left foot; M79.672 Pain in left foot

== ENCOUNTER → 2020-12-29 | Outpatient (CLI) | payer OTHER | LOC: M LABSMTC 10:02 | PROVIDERS: ATTEND Anesthesiology | DX: Z01.818 Encounter for other preprocedural examination (principal); Z11.52 Encounter for screening for COVID-19 ==

== ENCOUNTER 2021-01-02 09:06 | Day surgery (SDC) | payer OTHER ==
[~2021-01-02] VITALS: Ht 154.9 cm; Wt 84.8 kg
[~2021-01-02 09:06] MED LIST changes: +KETOROLAC 60MG 2ML VIAL As Ordered ONE; +LIDOCAINE 2% 100MG/5ML SDV (FOR ANES.) As Ordered ONE; +LR 1,000 ML IV ONE; +MIDAZOLAM INJ 2MG/2ML VIAL (J2250 PER 1MG) As Ordered ONE; +ONDANSETRON 4MG/2ML VIAL As Ordered ONE; +VANCOMYCIN HCL 1,000 MG, VIAL MATE ADAPTER 1 EACH in NS 250 ML IV SCH; +dexameTHASONE 4 MG/ML 1ML VIAL (J1100 PER 1MG) As Ordered ONE; +fentaNYL 100 MCG/2 ML INJECTION (J3010) As Ordered ONE; +propofoL 500 MG/50 ML VIAL As Ordered ONE
[2021-01-02] MEDS ORDERED: TIZA4CAP PO (09:32)
[2021-01-02] MEDS ORDERED: BUPIVACAINE HCL 0.25% 10ML VIAL As Ordered ONE (09:58)
[2021-01-02] MEDS ORDERED: GENTAMICIN SULF 80MG/2ML VIAL As Ordered ONE (09:59)
[2021-01-02] MEDS ORDERED: LIDOCAINE 2% MDV 20ML VIAL As Ordered ONE (10:00)
[2021-01-02] MEDS ORDERED: dexameTHASONE 4 MG/ML 1ML VIAL (J1100 PER 1MG) As Ordered ONE (10:00)
[2021-01-02] MEDS ORDERED: BUPIVACAINE HCL 0.25% 30ML VIAL As Ordered ONE (10:09)
[2021-01-02] MEDS ORDERED: METOCLOPRAMIDE INJ 10MG/2ML VIAL (J2765 PER 1) IV PRN (11:45)
[2021-01-02] MEDS ORDERED: oxyCODONE 5MG TAB PO PRN (11:45)
[2021-01-02] MEDS ORDERED: LR 1,000 ML IV SCH (11:45)
--- NOTE | 2021-01-02 12:05 | REP ---
INDICATION: BUNIONECTOMY LEFT FOOT. COMPARISON: 11/12/2018 pre operative exam TECHNIQUE: Three views FINDINGS: Status post derotational osteotomy fixed with a single cancellous screw. The alignment appears near anatomical. There is a small plantar calcaneal heel spur status quo. There are no additional osseous abnormalities IMPRESSION: As above. <Electronically signed by Rogelio Torres > 01/02/21 [id number]
[2021-01-02 12:30] VITALS: BP 129/69
--- NOTE | 2021-01-02 16:36 | RO ---
OPERATIVE NOTE DATE OF OPERATION: 01/02/2021 PREOPERATIVE DIAGNOSIS: Hallux valgus with metatarsus primus varus deformity left foot. POSTOPERATIVE DIAGNOSIS: Hallux valgus with metatarsus primus varus deformity left foot. PROCEDURE: Keanu bunionectomy with internal screw fixation left foot SURGEON: Nash Martinez DPM. PROBATION OFFICER: None. ANESTHESIA: Local MAC. IRRIGATION: Dilute gentamicin solution. HEMOSTASIS: Ankle pneumatic tourniquet at 200 mmHg for 29 minutes. HARDWARE UTILIZED: Arthrex 3.0 x 22 headless compression screw. ESTIMATED BLOOD LOSS: Less than 1 mL. DESCRIPTION OF OPERATION: On 01/02/2021, this 55-year-old white female was taken from her hospital room to the operating room and placed on the operating table in the supine position. Following the induction of IV sedation and local regional anesthesia, the left lower extremity was prepped and draped in the usual aseptic manner. Attention was directed to the patient's left foot. There was noted to be a hallux valgus deformity. At this time, the following procedure was performed. Keanu bunionectomy and internal screw fixation 3.0 mm x 22 mm x1 left foot: Attention was directed to the patient's left foot where there was noted to be a moderate hallux valgus deformity. At this time, a 6 cm incision was placed medial to the extensor tendon over the first metatarsophalangeal joint of the left foot. The incision was deepened through subcutaneous tissues, and all crossing venous tributaries were identified, scored, clamped, cut, and ligated with coagulation as necessary. Linear capsulotomy was performed in the same plane as the original skin incision. The capsule and periosteal structures were then dissected free in one continuous layer dorsally, medially, and laterally thus creating a capsular-periosteal type envelope. This subsequently revealed the hypertrophied medial eminence of the first metatarsal which was osteotomized from distal to proximal through and through and exited from the wound in toto. Small amount of spurring was noted in the dorsal lateral margin of the first metatarsal. This was rongeured smooth and then filed with a Edson nasal rasp. Wound was irrigated with copious amounts of dilute gentamicin solution. Attention was directed to the medial surface of the metatarsal where a V-shaped osteotomy was performed with a long planter and short dorsal length created in the distal metaphysis of the first metatarsal. The osteotomy was completed, and the capital fragment was transposed approximated 5 mm in the lateral direction and then fixated with a 3.0 x 22 mm cannulated headless Arthrex compression screw. The osteotomy was noted to be stable in all three cardinal planes. the redundant cortical spike was then osteotomized from dorsal to plantar through and through. Medial surface was rasped to a smooth contour with a handheld rasp. The wound was flushed with copious amounts of gentamicin solution. Attention was directed towards closure where the capsular structure was coapted and maintained utilizing 2-0 Monocryl in a simple interrupted type fashion. Subcutaneous tissues were coapted and maintained utilizing 4-0 Monocryl in a simple interrupted type fashion. Skin incisions were coapted and maintained utilizing 5-0 Monocryl in a continuous subcuticular type fashion. Incisions were reinforced with Steri-Strips. Following the completion of surgical procedure, 4 mg of dexamethasone sodium phosphate was instilled proximal to the surgical site. Attention was directed towards bandaging where a sterile compressive bandage applied consisting of Adaptic, 4 x 4's, splints, Buck, Kerlix, and Coban. The ankle pneumatic tourniquet was deflated. Instantaneous capillary filling time was noted to digits 1 through 5 of the patient's left foot. Patient apparently had tolerated surgical procedure well and was taken from the OR to the recovery room with further monitoring by the Anesthesia Department. Postoperative instructions were given upon discharge. ARACELY
== END 2021-01-02 12:44 | disposition home or self-care (01) ==
LOC: M SDC 09:06
PROVIDERS: ATTEND Podiatrist
DX: M20.12 Hallux valgus (acquired), left foot (principal); M20.5X2 Other deformities of toe(s) (acquired), left foot; G90.50 Complex regional pain syndrome I, unspecified; F42.9 Obsessive-compulsive disorder, unspecified; I10 Essential (primary) hypertension; E78.00 Pure hypercholesterolemia, unspecified; E11.40 Type 2 diabetes mellitus with diabetic neuropathy, unspecified; K58.1 Irritable bowel syndrome with constipation; K21.9 Gastro-esophageal reflux disease without esophagitis; Z86.14 Personal history of Methicillin resistant Staphylococcus aureus infection; Z86.69 Personal history of other diseases of the nervous system and sense organs; M19.90 Unspecified osteoarthritis, unspecified site; M06.9 Rheumatoid arthritis, unspecified; F41.9 Anxiety disorder, unspecified; F33.9 Major depressive disorder, recurrent, unspecified; J45.909 Unspecified asthma, uncomplicated; F17.210 Nicotine dependence, cigarettes, uncomplicated; Z86.73 Personal history of transient ischemic attack (TIA), and cerebral infarction without residual deficits; Z88.1 Allergy status to other antibiotic agents; Z88.0 Allergy status to penicillin; Z88.8 Allergy status to other drugs, medicaments and biological substances; Z79.899 Other long term (current) drug therapy; Z79.51 Long term (current) use of inhaled steroids; Z79.82 Long term (current) use of aspirin; Z79.84 Long term (current) use of oral hypoglycemic drugs; Z79.891 Long term (current) use of opiate analgesic
CPT/HCPCS: 28296; 73630; 76000; 88300; C1713; J1100; J1580; J1885; J2250; J2405; J3010; J3370

== ENCOUNTER → 2021-01-09 | Outpatient (CLI) | payer OTHER ==
[~2021-01-09] MED LIST changes: -KETOROLAC 60MG 2ML VIAL As Ordered ONE; -LIDOCAINE 2% 100MG/5ML SDV (FOR ANES.) As Ordered ONE; -LR 1,000 ML IV ONE; -MIDAZOLAM INJ 2MG/2ML VIAL (J2250 PER 1MG) As Ordered ONE; -ONDANSETRON 4MG/2ML VIAL As Ordered ONE; +TIZA4CAP PO; -VANCOMYCIN HCL 1,000 MG, VIAL MATE ADAPTER 1 EACH in NS 250 ML IV SCH; -dexameTHASONE 4 MG/ML 1ML VIAL (J1100 PER 1MG) As Ordered ONE; -fentaNYL 100 MCG/2 ML INJECTION (J3010) As Ordered ONE; -propofoL 500 MG/50 ML VIAL As Ordered ONE
--- NOTE | 2021-01-09 11:39 | REPMRS ---
Patient History The patient states she has not had a clinical breast exam in over a year. Patient is postmenopausal. Family history of breast cancer at age 48 and ovarian cancer in mother, breast cancer at age 48 and endometrial cancer at age 27 in sister, breast cancer in maternal grandmother. Took hormonal contraceptives for 15 years. Took estrogen for 10 years. Tomosynthesis is performed. [place] breast density is a. [facility] lifetime risk of breast cancer 14.4%. Patient states no breast complaints today. Patient has signed MRS History Sheet. Digital Woman Screen Mammo: January 09, 2021 - Exam #: [id number] Bilateral CC and MLO view(s) were taken. Technologist: Deandra Zapien [employer] Drill Operator Prior study comparison: August 22, 2017, bilateral digital mammo screening bilat, performed at [facility]. July 21, 2016, bilateral digital woman screen mammo, performed at [facility]. FINDINGS: There are scattered fibroglandular densities. There has been no change in the appearance of the mammogram from the prior studies. There is a mild amount of residual fibroglandular tissue which is fairly symmetric. There is no interval development of dominant mass, architectural distortion, or clustered microcalcification suggestive of malignancy. Assessment: BI-RADS/ACR category 1 mammogram. Negative Mammogram. Recommendation Routine screening mammogram in 1 year (for women over age 40). This mammogram was interpreted with the aid of an FDA-approved computer-aided dectection system. Electronically Signed By: Luis Manuel Rao MD 01/09/21 [id number]
--- NOTE | 2021-01-09 16:14 | DEXAMM ---
INDICATION: AGE RELATED OSTEOPOROSIS. COMPARISON: 05/13/2015 as well as other prior exams. TECHNIQUE: Bone density was measured using dual-energy x-ray absorptiometry (DEXA). FINDINGS: AP SPINE L1-L4 BMD 1.041 g/cm2 Young Adult T-Score -1.2 Age Matched Z-Score -0.4. LT FEMUR, TOTAL BMD 0.970 g/cm2 Young Adult T-Score -0.3 Age Matched Z-Score 0.4. LT NECK BMD 0.915 g/cm2 Young Adult T-Score -0.9 Age Matched Z-Score 0.2. RT FEMUR, TOTAL BMD 1.017 g/cm2 Young Adult T-Score 0.1 Age Matched Z-Score 0.8. RT NECK BMD 0.910 g/cm2 Young Adult T-Score -0.9 Age Matched Z-Score 0.1. IMPRESSION: There is low bone density of the spine. There is normal bone density of the left hip. There is normal bone density of the right hip. The density of the spine has decreased 14.3% since the initial exam on 01/13/2004. The density of the spine increased 1.9% since most recent exam on 05/13/2015. The density of the left hip has decreased 0.9% since initial exam on 01/13/2004. The density of the left hip has increased 3.7% since most recent exam on 05/13/2015. The density of the right hip has decreased 0.6% since the initial exam on 01/13/2004. The density of the right hip has increased 2.9% since the most recent exam on 05/13/2015. FOLLOW-UP: Recommendation for the next bone density exam: 2 years. <Electronically signed by Luis Manuel Rao > 01/09/21 [id number]
== END ==
LOC: M WHC 09:41
PROVIDERS: ATTEND Pediatrics
DX: Z12.31 Encounter for screening mammogram for malignant neoplasm of breast (principal); M81.0 Age-related osteoporosis without current pathological fracture

== ENCOUNTER → 2021-02-25 | Outpatient (CLI) | payer OTHER ==
[2021-02-25 10:25] LABS: HEMOGLOBIN A1c 5.8 %
[2021-02-25 10:34] LABS: RHEUMATOID FACTOR QUANT < 10.0 IU/ML (<15.0)
[2021-02-25 10:35] LABS: VITAMIN B12 LEVEL 275 PG/ML
== END ==
LOC: M LAB 09:13
PROVIDERS: ATTEND Nurse Practitioner Family
DX: R41.89 Other symptoms and signs involving cognitive functions and awareness (principal); I63.19 Cerebral infarction due to embolism of other precerebral artery; R20.2 Paresthesia of skin; E11.43 Type 2 diabetes mellitus with diabetic autonomic (poly)neuropathy; R26.81 Unsteadiness on feet

== ENCOUNTER → 2021-04-06 | Outpatient (CLI) | payer OTHER ==
[~2021-04-06] MED LIST changes: -FLUC150T PO; +FLUC150T9 PO
[2021-04-06 13:15] LABS: BASO % 0.4 % (0.0-1.0); EOS # 0.1 10^3/uL (0.0-0.5); EOS % 0.8 % (0.0-3.0); HEMATOCRIT 41.9 % (36.0-47.0); HEMOGLOBIN 14.4 g/dl (12.0-15.5); LYMPH # 2.1 10^3/uL (1.5-5.0); MEAN CORPUSCULAR HGB CONC 34.4 g/dl (32.0-36.5); MEAN CORPUSCULAR VOLUME 90.1 fl (80.0-96.0); MONO # 0.4 10^3/uL (0.0-0.8); MONO % 5.3 % (2.0-8.0); NEUTROPHILS # 4.7 10^3/uL (1.5-8.5); NEUTROPHILS % 64.2 % (36.0-66.0); PLATELET COUNT, AUTOMATED 257 10^3/uL (150-450); RED BLOOD COUNT 4.65 10^6/uL (4.00-5.40); WHITE BLOOD COUNT 7.4 10^3/uL (4.0-10.0)
[2021-04-06 13:40] LABS: ALBUMIN 3.8 GM/DL (3.2-5.2); ALT/SGPT 22 U/L (12-78); BILIRUBIN,TOTAL 0.6 MG/DL (0.2-1.0); BLOOD UREA NITROGEN 11 MG/DL (7-18); C REACTIVE PROTEIN QUANTITATIV 0.34 MG/DL (0.00-0.30); CALCIUM LEVEL 9.3 MG/DL (8.5-10.1); CARBON DIOXIDE LEVEL 27 MEQ/L (21-32); CHLORIDE LEVEL 105 MEQ/L (98-107); GLOMERULAR FILTRATION RATE > 60.0 (>51); GLUCOSE, FASTING 81 MG/DL (70-100); POTASSIUM SERUM 3.4 MEQ/L (3.5-5.1); SODIUM LEVEL 142 MEQ/L (136-145); TOTAL PROTEIN 6.9 GM/DL (6.4-8.2)
[2021-04-06 14:09] LABS: ERYTHROCYTE SEDIMENTATION RATE 16 mm/hr (0-30)
== END ==
LOC: M PLALAB 10:48
PROVIDERS: ATTEND Physician Assistant
DX: T84.7XXD Infection and inflammatory reaction due to other internal orthopedic prosthetic devices, implants and grafts, subsequent encounter (principal)

== ENCOUNTER → 2021-04-17 | Outpatient (CLI) | payer OTHER | LOC: M RAD 08:54 | PROVIDERS: ATTEND Physician Assistant Surgical | DX: M25.532 Pain in left wrist (principal) ==

== ENCOUNTER → 2021-05-08 | Outpatient (CLI) | payer OTHER ==
[~2021-05-08] MED LIST changes: +CLON0.5T2 PO
== END ==
LOC: M LABSMTC 09:58
PROVIDERS: ATTEND Anesthesiology
DX: Z01.812 Encounter for preprocedural laboratory examination (principal); Z20.822 Contact with and (suspected) exposure to COVID-19

== ENCOUNTER 2021-05-13 09:05 | Day surgery (SDC) | payer OTHER ==
[~2021-05-13] VITALS: Ht 154.9 cm; Wt 81.6 kg
[~2021-05-13 09:05] MED LIST changes: +LR 1,000 ML IV ONE
[2021-05-13] MEDS ORDERED: METHYLENE BLUE 0.5% (5MG/ML) 10 ML AMP (PROVAYBLUE) As Ordered ONE (11:26)
[2021-05-13] MEDS ORDERED: EPINEPHrine 1MG/ML INJ 30ML MD-VIAL As Ordered ONE (11:26)
[2021-05-13] MEDS ORDERED: LIDOCAINE W/EPINEPHRINE 1% 20ML VIAL As Ordered ONE (11:26)
[2021-05-13] MEDS ORDERED: fentaNYL 250 MCG/5 ML INJECTION As Ordered ONE (12:10)
[2021-05-13] MEDS ORDERED: dexameTHASONE 4 MG/ML 1ML VIAL (J1100 PER 1MG) As Ordered ONE (12:10)
[2021-05-13] MEDS ORDERED: propofoL 200 MG/20 ML VIAL As Ordered ONE ×2 (12:10→12:11)
[2021-05-13] MEDS ORDERED: LIDOCAINE 2% 100MG/5ML SDV (FOR ANES.) As Ordered ONE (12:10)
[2021-05-13] MEDS ORDERED: ROCURONIUM BROMIDE 50 MG/5 ML VIAL As Ordered ONE (12:10)
[2021-05-13] MEDS ORDERED: METOCLOPRAMIDE INJ 10MG/2ML VIAL (J2765 PER 1) As Ordered ONE (12:10)
[2021-05-13] MEDS ORDERED: SUGAMMADEX SODIUM 500 MG/5 ML VIAL (BRIDION) As Ordered ONE (12:10)
[2021-05-13] MEDS ORDERED: MIDAZOLAM INJ 2MG/2ML VIAL (J2250 PER 1MG) As Ordered ONE (12:10)
[2021-05-13] MEDS ORDERED: ACETAMINOPHEN 1000MG 100ML IV BTL (OFIRMEV) (J0131 PER 10MG) As Ordered ONE (12:12)
[2021-05-13] MEDS ORDERED: LR 1,000 ML IV SCH ×2 (12:55→13:15)
[2021-05-13] MEDS ORDERED: METOCLOPRAMIDE INJ 10MG/2ML VIAL (J2765 PER 1) IV PRN (13:15)
[2021-05-13] MEDS ORDERED: PROMETHAZINE INJ 25 MG/ML VIAL (J2550) IV PRN (13:15)
[2021-05-13] MEDS ORDERED: HYDROMORPHONE HCL 0.5 MG/ 0.5 ML SYRINGE (J1170 PER 1) IV PRN (13:15)
[2021-05-13] MEDS ORDERED: oxyCODONE 5MG TAB PO PRN (13:55)
[2021-05-13 14:23] VITALS: BP 151/84
== END 2021-05-13 14:57 | disposition home or self-care (01) ==
LOC: M SDC 09:05
PROVIDERS: ATTEND Otolaryngology
DX: J34.2 Deviated nasal septum (principal); J31.0 Chronic rhinitis; J32.9 Chronic sinusitis, unspecified; I10 Essential (primary) hypertension; E78.00 Pure hypercholesterolemia, unspecified; E11.9 Type 2 diabetes mellitus without complications; K58.1 Irritable bowel syndrome with constipation; K21.9 Gastro-esophageal reflux disease without esophagitis; M19.90 Unspecified osteoarthritis, unspecified site; J45.909 Unspecified asthma, uncomplicated; F41.9 Anxiety disorder, unspecified; F32.9 Major depressive disorder, single episode, unspecified; Z96.82 Presence of neurostimulator; Z86.73 Personal history of transient ischemic attack (TIA), and cerebral infarction without residual deficits; G90.50 Complex regional pain syndrome I, unspecified; M81.0 Age-related osteoporosis without current pathological fracture; Z79.899 Other long term (current) drug therapy; Z79.51 Long term (current) use of inhaled steroids; Z79.82 Long term (current) use of aspirin; Z79.84 Long term (current) use of oral hypoglycemic drugs; Z88.8 Allergy status to other drugs, medicaments and biological substances; Z88.1 Allergy status to other antibiotic agents; Z88.0 Allergy status to penicillin; Z88.5 Allergy status to narcotic agent
CPT/HCPCS: 30130; 30520; 88300; 88305; 93005; J0131; J0171; J1100; J2250; J2765; J3010; Q9968

== ENCOUNTER → 2021-07-13 | Outpatient (REF) | payer OTHER ==
[~2021-07-13] MED LIST changes: -LR 1,000 ML IV ONE
== END ==
LOC: M LAB REF 16:14
PROVIDERS: ATTEND Pediatrics
DX: R30.9 Painful micturition, unspecified (principal); N20.0 Calculus of kidney

== ENCOUNTER 2021-07-23 21:48 | Emergency (ER) | payer OTHER ==
[~2021-07-23] VITALS: Ht 152.4 cm; Wt 83.4 kg
[2021-07-23 21:48] VITALS: BP 140/93
[2021-07-24] MEDS ORDERED: PROMETHAZINE 25MG/ML 1ML VIAL IV ONE (01:10)
[2021-07-24] MEDS ORDERED: KETOROLAC 30 MG/ML 1ML VIAL IV ONE (01:10)
[2021-07-24] MEDS ORDERED: NS 1,000 ML IV ONE (01:10)
[2021-07-24 01:24] LABS: BASO # 0.1 10^3/uL (0.0-0.2); BASO % 0.7 % (0.0-1.0); EOS # 0.1 10^3/uL (0.0-0.5); EOS % 1.5 % (0.0-3.0); HEMATOCRIT 39.4 % (36.0-47.0); HEMOGLOBIN 13.1 g/dl (12.0-15.5); LYMPH # 3.4 10^3/uL (1.5-5.0); LYMPH % 37.1 % (24.0-44.0); MEAN CORPUSCULAR HEMOGLOBIN 29.8 pg (27.0-33.0); MEAN CORPUSCULAR HGB CONC 33.2 g/dl (32.0-36.5); MEAN CORPUSCULAR VOLUME 89.5 fl (80.0-96.0); MONO # 0.5 10^3/uL (0.0-0.8); MONO % 5.6 % (2.0-8.0); NEUTROPHILS % 54.8 % (36.0-66.0); PLATELET COUNT, AUTOMATED 294 10^3/uL (150-450); WHITE BLOOD COUNT 9.1 10^3/uL (4.0-10.0)
[2021-07-24] MEDS ORDERED: FOSFOMYCIN TROMETHAMINE 3 GM POWDER PACKET (MONUROL) PO ONE (03:00)
== END 2021-07-24 03:12 | disposition home or self-care (01) ==
LOC: M ED 21:48
DX: N39.0 Urinary tract infection, site not specified (principal); M51.36 Other intervertebral disc degeneration, lumbar region; M43.06 Spondylolysis, lumbar region; E11.9 Type 2 diabetes mellitus without complications; I10 Essential (primary) hypertension; E78.5 Hyperlipidemia, unspecified; Z87.441 Personal history of nephrotic syndrome; M54.50 Low back pain, unspecified; K57.32 Diverticulitis of large intestine without perforation or abscess without bleeding; F17.200 Nicotine dependence, unspecified, uncomplicated; Z88.0 Allergy status to penicillin; Z88.1 Allergy status to other antibiotic agents; Z88.8 Allergy status to other drugs, medicaments and biological substances; Z79.899 Other long term (current) drug therapy
CPT/HCPCS: 74176; 80047; 81001; 85025; 87086; 96361; 96374; 96375; 99283; J1885; J2550

== ENCOUNTER → 2021-08-19 | Outpatient (CLI) | payer OTHER | LOC: M PLAIMG 09:25 | PROVIDERS: ATTEND Nurse Practitioner Family | DX: M54.16 Radiculopathy, lumbar region (principal) ==

== ENCOUNTER → 2021-11-11 | Outpatient (CLI) | payer OTHER ==
[~2021-11-11] MED LIST changes: -LABE100T5 PO; +LABE100T71 PO
== END ==
LOC: M LAB 09:13
PROVIDERS: ATTEND Neurological Surgery
DX: F17.210 Nicotine dependence, cigarettes, uncomplicated (principal)

== ENCOUNTER → 2021-12-02 | Outpatient (REF) | payer OTHER ==
[~2021-12-02] MED LIST changes: +TRAM50TA2 PO
== END ==
LOC: M LAB 12:59
PROVIDERS: ATTEND Neurological Surgery
DX: F17.218 Nicotine dependence, cigarettes, with other nicotine-induced disorders (principal)

== ENCOUNTER → 2022-01-12 | Outpatient (CLI) | payer OTHER ==
[~2022-01-12] MED LIST changes: -DOXY-350 PO; +DOXY-444 PO
== END ==
LOC: M LAB 09:45
PROVIDERS: ATTEND Neurological Surgery
DX: F17.210 Nicotine dependence, cigarettes, uncomplicated (principal)
CPT/HCPCS: 36415; G0480

== ENCOUNTER → 2022-02-12 | Outpatient (REF) | payer OTHER ==
[2022-02-12 17:38] LABS: BASO # 0.1 10^3/uL (0.0-0.2); BASO % 0.7 % (0.0-1.0); EOS # 0.2 10^3/uL (0.0-0.5); EOS % 1.9 % (0.0-3.0); HEMATOCRIT 38.9 % (36.0-47.0); HEMOGLOBIN 12.8 g/dl (12.0-15.5); LYMPH # 3.6 10^3/uL (1.5-5.0); LYMPH % 43.4 % (24.0-44.0); MEAN CORPUSCULAR HGB CONC 32.9 g/dl (32.0-36.5); MONO # 0.5 10^3/uL (0.0-0.8); MONO % 5.6 % (2.0-8.0); NEUTROPHILS % 48.2 % (36.0-66.0); PLATELET COUNT, AUTOMATED 315 10^3/uL (150-450); RED BLOOD COUNT 4.42 10^6/uL (4.00-5.40); WHITE BLOOD COUNT 8.2 10^3/uL (4.0-10.0)
[2022-02-12 17:50] LABS: ALBUMIN 3.6 G/DL (3.2-5.2); ALKALINE PHOSPHATASE 97 U/L (46-116); ALT/SGPT 20 U/L (7.0-40); AST/SGOT 19 U/L (<34); BILIRUBIN,TOTAL 0.5 MG/DL (0.3-1.2); BLOOD UREA NITROGEN 9 MG/DL (9-23); CALCIUM LEVEL 9.1 MG/DL (8.5-10.1); CARBON DIOXIDE LEVEL 24 MMOL/L (20-31); CHLORIDE LEVEL 105 MMOL/L (98-107); CREATININE FOR GFR 0.68 MG/DL (0.55-1.30); GLOMERULAR FILTRATION RATE > 60.0 (>51); GLUCOSE, FASTING 92 MG/DL (60-100); POTASSIUM SERUM 4.7 MMOL/L (3.5-5.1); SODIUM LEVEL 139 MMOL/L (136-145); TOTAL PROTEIN 6.5 G/DL (5.7-8.2)
[2022-02-12 17:54] LABS: INR 0.86; PROTHROMBIN TIME 11.9 SECONDS (12.5-14.5)
[2022-02-12 17:55] LABS: PARTIAL THROMBOPLASTIN TIME 25.6 SECONDS (24.8-34.2)
== END ==
LOC: M LAB REF 17:13
PROVIDERS: ATTEND Pediatrics
DX: Z01.818 Encounter for other preprocedural examination (principal)

== ENCOUNTER 2022-03-24 08:45 | Outpatient (RCR) | payer OTHER ==
[~2022-03-24 08:45] MED LIST changes: +NYST-38 TOP; -NYST50SS TOP
== END 2022-03-30 ==
LOC: M PT 08:45
PROVIDERS: ATTEND Neurological Surgery
DX: M53.3 Sacrococcygeal disorders, not elsewhere classified (principal)

== ENCOUNTER → 2022-05-24 | Outpatient (CLI) | payer OTHER | LOC: M RAD 10:37 | PROVIDERS: ATTEND Pediatrics | DX: I63.9 Cerebral infarction, unspecified (principal) ==

== ENCOUNTER → 2022-08-23 | Outpatient (CLI) | payer OTHER ==
[~2022-08-23] MED LIST changes: +FLUT50SP17; -FLUTISP
== END ==
LOC: M WHC 07:29
PROVIDERS: ATTEND Nurse Practitioner Family
DX: Z12.31 Encounter for screening mammogram for malignant neoplasm of breast (principal)

== ENCOUNTER → 2022-09-28 | Outpatient (REF) | payer OTHER ==
[~2022-09-28] MED LIST changes: +DICY-61 PO; -DICY10CA13 PO; -ROPI0.253 PO; +ROPI5TAB19 PO
[2022-09-28 13:28] LABS: BASO # 0.1 10^3/uL (0.0-0.2); EOS # 0.1 10^3/uL (0.0-0.5); EOS % 1.9 % (0.0-3.0); HEMATOCRIT 42.1 % (36.0-47.0); HEMOGLOBIN 12.6 g/dl (12.0-15.5); LYMPH # 2.7 10^3/uL (1.5-5.0); LYMPH % 42.7 % (24.0-44.0); MEAN CORPUSCULAR HEMOGLOBIN 25.6 pg (27.0-33.0); MEAN CORPUSCULAR HGB CONC 29.9 g/dl (32.0-36.5); MEAN CORPUSCULAR VOLUME 85.6 fl (80.0-96.0); MONO # 0.4 10^3/uL (0.0-0.8); MONO % 5.6 % (2.0-8.0); NEUTROPHILS % 48.5 % (36.0-66.0); PLATELET COUNT, AUTOMATED 282 10^3/uL (150-450); RED BLOOD COUNT 4.92 10^6/uL (4.00-5.40); WHITE BLOOD COUNT 6.2 10^3/uL (4.0-10.0)
[2022-09-28 13:29] LABS: THYROID STIMULATING HORMONE 0.927 uIU/ML (0.55-4.78)
[2022-09-28 13:30] LABS: ALBUMIN 3.9 G/DL (3.2-5.2); ALKALINE PHOSPHATASE 120 U/L (46-116); ALT/SGPT 17 U/L (7.0-40); AST/SGOT 9 U/L (<34); BILIRUBIN,TOTAL 0.5 MG/DL (0.3-1.2); BLOOD UREA NITROGEN 10 MG/DL (9-23); CALCIUM LEVEL 9.5 MG/DL (8.5-10.1); CARBON DIOXIDE LEVEL 27 MMOL/L (20-31); CHLORIDE LEVEL 105 MMOL/L (98-107); CHOLESTEROL LEVEL 135 MG/DL (<200); CREATININE FOR GFR 0.69 MG/DL (0.55-1.30); GLOMERULAR FILTRATION RATE > 60.0 (>51); GLUCOSE, FASTING 102 MG/DL (60-100); HDL CHOLESTEROL 46.4 MG/DL (>40); LDL CHOLESTEROL 64.2 MG/DL (<100); NON-HDL-C 88.6 MG/DL; POTASSIUM SERUM 3.9 MMOL/L (3.5-5.1); SODIUM LEVEL 142 MMOL/L (136-145); TOTAL PROTEIN 6.5 G/DL (5.7-8.2); TRIGLYCERIDES LEVEL 122 MG/DL (<150)
== END ==
LOC: M LAB REF 12:20
PROVIDERS: ATTEND Pediatrics
DX: I10 Essential (primary) hypertension (principal); E78.5 Hyperlipidemia, unspecified

== ENCOUNTER → 2022-11-12 | Outpatient (CLI) | payer OTHER ==
[~2022-11-12] MED LIST changes: +DIAZ-654 PO; -VALI10TA PO
== END ==
LOC: M RAD 07:44
PROVIDERS: ATTEND Internal Medicine Critical Care Medicine
DX: Z87.891 Personal history of nicotine dependence (principal)

== ENCOUNTER → 2023-06-08 | Outpatient (REF) | payer OTHER ==
[~2023-06-08] MED LIST changes: -FLUT50SP17; +FLUTISP; +LABE100T40 PO; -LABE100T71 PO
[2023-06-08 13:20] LABS: BLOOD UREA NITROGEN 13 MG/DL (9-23); CALCIUM LEVEL 9.4 MG/DL (8.5-10.1); CARBON DIOXIDE LEVEL 26 MMOL/L (20-31); CHLORIDE LEVEL 107 MMOL/L (98-107); CREATININE FOR GFR 0.75 MG/DL (0.55-1.30); GLOMERULAR FILTRATION RATE > 60.0 (>51); GLUCOSE, FASTING 103 MG/DL (60-100); POTASSIUM SERUM 4.5 MMOL/L (3.5-5.1); SODIUM LEVEL 142 MMOL/L (136-145)
== END ==
LOC: M LAB REF 11:57
PROVIDERS: ATTEND Pediatrics
DX: E11.9 Type 2 diabetes mellitus without complications (principal)

== ENCOUNTER → 2023-09-26 | Outpatient (CLI) | payer OTHER ==
[~2023-09-26] MED LIST changes: +DOXY-323 PO; +DOXY-440 PO; -DOXY-443 PO; -DOXY-444 PO; +ESOM1CAP20 PO; -ESOM1CAP5 PO
[2023-09-26 14:36] LABS: BASO % 0.4 % (0.0-1.0); EOS # 0.1 10^3/uL (0.0-0.5); EOS % 0.9 % (0.0-3.0); HEMATOCRIT 38.3 % (36.0-47.0); HEMOGLOBIN 12.3 g/dl (12.0-15.5); LYMPH # 2.9 10^3/uL (1.5-5.0); LYMPH % 41.4 % (24.0-44.0); MEAN CORPUSCULAR HEMOGLOBIN 27.1 pg (27.0-33.0); MEAN CORPUSCULAR HGB CONC 32.1 g/dl (32.0-36.5); MEAN CORPUSCULAR VOLUME 84.4 fl (80.0-96.0); MONO # 0.4 10^3/uL (0.0-0.8); MONO % 5.4 % (2.0-8.0); NEUTROPHILS # 3.6 10^3/uL (1.5-8.5); NEUTROPHILS % 51.6 % (36.0-66.0); PLATELET COUNT, AUTOMATED 235 10^3/uL (150-450); RED BLOOD COUNT 4.54 10^6/uL (4.00-5.40)
[2023-09-26 15:00] LABS: ALKALINE PHOSPHATASE 91 U/L (46-116); ALT/SGPT 24 U/L (7.0-40); AST/SGOT 10 U/L (<34); BLOOD UREA NITROGEN 12 MG/DL (9-23); CALCIUM LEVEL 9.4 MG/DL (8.5-10.1); CARBON DIOXIDE LEVEL 29 MMOL/L (20-31); CHLORIDE LEVEL 106 MMOL/L (98-107); CREATININE FOR GFR 0.68 MG/DL (0.55-1.30); GLOMERULAR FILTRATION RATE > 60.0 (>51); GLUCOSE, FASTING 81 MG/DL (60-100); POTASSIUM SERUM 4.2 MMOL/L (3.5-5.1); SODIUM LEVEL 141 MMOL/L (136-145); TOTAL PROTEIN 6.4 G/DL (5.7-8.2)
== END ==
LOC: M LAB 12:15
PROVIDERS: ATTEND Nurse Practitioner
DX: T81.49XA Infection following a procedure, other surgical site, initial encounter (principal); T85.733D Infection and inflammatory reaction due to implanted electronic neurostimulator of spinal cord, electrode (lead), subsequent encounter; T84.7XXD Infection and inflammatory reaction due to other internal orthopedic prosthetic devices, implants and grafts, subsequent encounter; Z79.2 Long term (current) use of antibiotics; Y82.9 Unspecified medical devices associated with adverse incidents

== ENCOUNTER → 2023-10-12 | Outpatient (REF) | payer OTHER ==
[2023-10-12 13:37] LABS: CREATININE, URINE 59.5 MG/DL; MALB URINE SIEMENS < 3.0 MG/L
[2023-10-12 18:57] LABS: HEMOGLOBIN A1c 5.9 % (4.0-6.0)
[2023-10-12 19:20] LABS: CHOLESTEROL RISK RATIO 2.92 (<5); HDL CHOLESTEROL 47.8 MG/DL (>40); LDL CHOLESTEROL 55.8 MG/DL (<100); NON-HDL-C 92.2 MG/DL
[2023-10-12 19:23] LABS: THYROID STIMULATING HORMONE 1.251 uIU/ML (0.55-4.78); TOTAL 25(OH) VITAMIN D 43.5 NG/ML (20.0-100.0)
== END ==
LOC: M LAB REF 12:26
PROVIDERS: ATTEND Pediatrics
DX: E11.9 Type 2 diabetes mellitus without complications (principal); M81.0 Age-related osteoporosis without current pathological fracture; E78.5 Hyperlipidemia, unspecified

== ENCOUNTER → 2023-11-17 | Outpatient (CLI) | payer OTHER ==
[~2023-11-17] MED LIST changes: +GABA-1490 PO; -GABA600T4 PO
== END ==
LOC: M WHC 09:22
PROVIDERS: ATTEND Pediatrics
DX: Z12.31 Encounter for screening mammogram for malignant neoplasm of breast (principal); M81.0 Age-related osteoporosis without current pathological fracture

== ENCOUNTER 2024-04-02 07:03 | Day surgery (SDC) | payer OTHER ==
[~2024-04-02] VITALS: Ht 162.6 cm; Wt 84.8 kg
[~2024-04-02 07:03] MED LIST changes: +ATOR80TA59 PO; +CALC-364 PO; +CALC200T3 PO; +CETI-24 PO; -CYCL5TAB PO; +CYCL5TAB4 PO; +D-101000 PO; -DOXY-323 PO; +DOXY-441 PO; +FLUT15.820 NARES; +GABA-1172 PO; -GABA-282 PO; +MONT10TA97 PO; -SIME180C25 PO; +SIME1CAP4 PO; +STEG15TA PO; +TRAZ1TAB14 PO; +VANC250C12 PO; -VANC250C3 PO
[2024-04-02] MEDS ORDERED: propofoL 200 MG/20 ML VIAL As Ordered ONE (07:07)
[2024-04-02] MEDS ORDERED: LIDOCAINE 2% 100MG/5ML SDV (FOR ANES.) As Ordered ONE (07:08)
[2024-04-02] MEDS ORDERED: fentaNYL 100 MCG/2 ML INJECTION As Ordered ONE (07:09)
[2024-04-02 08:15] VITALS: TEMP 98
[2024-04-02 08:36] VITALS: BP 139/86; O2SAT 95
== END 2024-04-02 08:40 | disposition home or self-care (01) ==
LOC: M OPP 07:03
PROVIDERS: ATTEND Internal Medicine Gastroenterology
DX: K44.9 Diaphragmatic hernia without obstruction or gangrene (principal); K22.89 Other specified disease of esophagus; R12 Heartburn; Z86.73 Personal history of transient ischemic attack (TIA), and cerebral infarction without residual deficits; Z88.0 Allergy status to penicillin; Z88.1 Allergy status to other antibiotic agents; Z88.8 Allergy status to other drugs, medicaments and biological substances; Z87.891 Personal history of nicotine dependence; Z79.2 Long term (current) use of antibiotics; Z79.899 Other long term (current) drug therapy; J44.9 Chronic obstructive pulmonary disease, unspecified
CPT/HCPCS: 43239; 88305; J3010

== ENCOUNTER → 2024-06-11 | Outpatient (CLI) | payer OTHER | LOC: M PLAIMG 12:13 | PROVIDERS: ATTEND Physician Assistant | DX: J32.8 Other chronic sinusitis (principal) ==

== ENCOUNTER 2024-10-05 07:46 | Emergency (ER) | payer OTHER ==
[~2024-10-05] VITALS: Ht 152.4 cm; Wt 85.4 kg
[~2024-10-05 07:46] MED LIST changes: +ACET-1515 PO; -ACET650T15 PO
[2024-10-05 07:51] VITALS: TEMP 97.9
[2024-10-05] MEDS ORDERED: IBUP200T46 PO (07:56)
[2024-10-05] MEDS: ACETAMINOPHEN 500 MG TAB PO ONE (09:27)
[2024-10-05] MEDS: KETOROLAC 30 MG/ML 1 ML VIAL IM ONE (09:27)
[2024-10-05 10:30] VITALS: BP 118/69; O2SAT 96
[2024-10-05] MEDS ORDERED: CYCL-707 PO (10:56)
[2024-10-05] MEDS ORDERED: MEDR4PAK PO (10:56)
== END 2024-10-05 11:07 | disposition home or self-care (01) ==
LOC: M ED 07:46
DX: M43.16 Spondylolisthesis, lumbar region (principal); M47.896 Other spondylosis, lumbar region; J44.9 Chronic obstructive pulmonary disease, unspecified; Z88.0 Allergy status to penicillin; Z88.1 Allergy status to other antibiotic agents; Z88.8 Allergy status to other drugs, medicaments and biological substances; Z79.51 Long term (current) use of inhaled steroids; Z79.1 Long term (current) use of non-steroidal anti-inflammatories (NSAID); Z79.2 Long term (current) use of antibiotics; Z79.899 Other long term (current) drug therapy
CPT/HCPCS: 72131; 73521; 96372; 99284; J1885

== ENCOUNTER → 2024-11-28 | Outpatient (REF) | payer OTHER ==
[~2024-11-28] MED LIST changes: -IBUP-1022 PO; +IBUP200T46 PO; +IBUP600T42 PO; +MEDR4PAK PO
== END ==
LOC: M LAB REF 11:35
PROVIDERS: ATTEND Pediatrics
DX: J02.9 Acute pharyngitis, unspecified (principal)

== ENCOUNTER → 2024-12-31 | Outpatient (CLI) | payer OTHER ==
[2024-12-31 11:02] LABS: BASO # 0.1 10^3/uL (0.0-0.2); BASO % 0.7 % (0.0-1.0); EOS # 0.1 10^3/uL (0.0-0.5); EOS % 0.9 % (0.0-3.0); LYMPH # 2.5 10^3/uL (1.5-5.0); LYMPH % 37.1 % (24.0-44.0); MONO # 0.4 10^3/uL (0.0-0.8); MONO % 6.3 % (2.0-8.0); NEUTROPHILS # 3.7 10^3/uL (1.5-8.5); NEUTROPHILS % 54.7 % (36.0-66.0); PLATELET COUNT, AUTOMATED 266 10^3/uL (150-450)
[2024-12-31 11:11] LABS: ESTIMATED AVERAGE GLUCOSE 143.0 MG/DL (60-110)
[2024-12-31 11:15] LABS: ALT/SGPT 29.0 U/L (7.0-40); AST/SGOT 19.0 U/L (<34); CALCIUM LEVEL 9.2 MG/DL (8.3-10.6); CARBON DIOXIDE LEVEL 29.0 MMOL/L (20-31); CHLORIDE LEVEL 103.0 MMOL/L (98-107); CHOLESTEROL LEVEL 153.0 MG/DL (<200); CHOLESTEROL RISK RATIO 2.56 (<5); CREATININE FOR GFR 0.82 MG/DL (0.55-1.30); GLOMERULAR FILTRATION RATE 81.8 (>45); LDL CHOLESTEROL 73.5 MG/DL (<100); NON-HDL-C 93.3 MG/DL; POTASSIUM SERUM 4.1 MMOL/L (3.5-5.1); SODIUM LEVEL 142.0 MMOL/L (136-145); TRIGLYCERIDES LEVEL 99.0 MG/DL (<150)
[2024-12-31 13:45] LABS: CREATININE, URINE 79.9 MG/DL; MALB URINE SIEMENS < 3.0 MG/L
== END ==
LOC: M LAB 08:02
PROVIDERS: ATTEND Pediatrics
DX: E11.59 Type 2 diabetes mellitus with other circulatory complications (principal)